=== PATIENT | female | born 1985 | race Caucasian/White ===

== ENCOUNTER 2016-10-08 08:11 | Inpatient (IN) | payer OTHER ==
[~2016-10-08] VITALS: Ht 162.6 cm; Wt 90.1 kg
[~2016-10-08 08:11] MED LIST: DOXY100T2 PO; HYDR25CA PO; INSLIS SUBQ; INSU100V7 SUBQ; LOV100 SUBQ; OXYC5TAB72 PO; RANI150C4 PO; WARF5TAB PO
[2016-10-08 08:23] VITALS: BP 155/94; PULSE 115; RESP 22
--- NOTE | 2016-10-08 09:01 | ED.REPORT ---
HPI-Rash / Abscess Date of Service Oct 08, 2016 ED Provider: Dr. Tomas Pt is a 30 y/o female w/ a hx of prior IV drug abuse, recurrent MRSA abscesses, T1DM, endocarditis, PE, presenting to the ED c/o multiple sites of abscesses onset 1 week ago. She has a hx of septic MRSA and believes that her symptoms today are caused by MRSA. She was diagnosed with cellulitis of the face 1 week ago at Urgent Care and was placed on Clindamycin which has provided some relief. She now reports right sided facial pressure and pain along with bilateral upper arm pain secondary to abscesses. Her left upper arm abscess bursted while she was in triage today.She c/o associated fever, headache, myalgias. She denies nausea, vomiting, cough, CP, abdominal pain. She has been in recovery from IV drug abuse for 2 months. She is on Suboxone. Her recent blood glucose readings have been between 200-300 because she was out of her Humalog. Her sugars stay around 180 when she is on her proper medications. Of note, she is allergic to Penicillins, Sulfa, and Vancomycin. Nursing Notes Stated Complaint: POSS BODY INFECTIONS Chief Complaint: Skin Rash/Abscess Nursing Notes Reviewed: Yes Allergies: Coded Allergies: Penicillins (Verified Allergy, Severe, HIVES, 10/08/16) Sulfa (Sulfonamide Antibiotics) (Verified Allergy, Severe, Hives, 10/08/16) vancomycin (Verified Allergy, Severe, Red man's syndrome, 10/08/16) Scheduled Buprenorphine HCl/Naloxone HCl (Suboxone 8 mg-2 mg Sl Film) 1 Each Film 1 EACH SL BID Insulin Glargine (Lantus U100 Insulin Vial) 100 Unit/Ml Vial 30 UNIT SUBQ HS Insulin Human Lispro (HumaLOG U100 Insulin Vial) 100 Unit/Ml Unit 0 SUBQ TID- INSULIN Check blood sugars before meals and at bedtime. Use correction factor only before meals. Blood Sugar Lispro Correction: <151, 0 units; 151-175, 1 unit; 176-200, 2 units; 201-225, 3 units; 226-250, 4 units; 251-275, 5 units; 276-300 , 6 units; 301-325, 7 units; 326-350, 8 units; 351-375, 9 units; 376-400, 10 units; >400, 12 units. Linezolid (Zyvox) 600 Mg Tablet 600 MG PO BID Metronidazole (Flagyl) 500 Mg Tablet 500 MG PO Q8 diphenhydrAMINE HCl (Benadryl) 25 Mg Capsule 25 MG PO Q8H Scheduled PRN Hydroxyzine Pamoate (HydrOXYzine Pamoate) 50 Mg Capsule 50 MG PO QID PRN PRN For Anxiety Ranitidine (Ranitidine) 150 Mg Capsule 150 MG PO BID PRN PRN For Indigestion General Time Seen by MD: 09:01 Chief Complaint Abscess Hx Obtained From: Patient Arrived By: Walk-in Onset Occurred: 1 week ago Symptom Duration: Since onset Location: : Arm: Generalized: Head/face Quality: Painful Severity: Current: Moderate Severity: Maximum: Moderate Related History: Reports: MRSA Recent Healthcare: Previous diagnosis, Prior workup Similar Sx Previous: Yes Past Medical History Past Medical History Type one diabetic Hepatitis C Bipolar Endocarditis Bilateral PEs MRSA Reports: Asthma, Diabetes mellitus Past Surgical History Knee Chest tube Abscess drainage Left arm Left hip Smoking History Former Smoker Social History Alcohol Use: Denies alcohol use Drug Use: In recovery, IV drugs, THC Other Social History: Local resident Ambulatory Status Independent Review of Systems Constitutional: Reports: Fever, Denies: Chills Eyes: Denies: Discharge bilateral Ears / Nose / Throat: Denies: Earache bilateral, Nasal congestion Respiratory: Denies: Non-productive cough, Shortness of breath Cardiovascular: Denies: Chest pain GI: Denies: Abdominal pain, Nausea, Vomiting Musculoskeletal: Reports: Extremity pain Skin: Reports Rash, Reports Swelling Allergy / Immune: Denies: Allergic reaction Complete sys rev & neg: except as marked. Female: Denies: Dysuria, Flank pain Neurologic: Reports: Headache, Denies: Confusion, Numbness, Weakness Physical Exam Initial Vital Signs Initial VS: Reviewed, Vital signs abnormal Neck: Supple, Non-tender, Full range of motion Respiratory: Breath sounds normal, Clear to auscultation, No respiratory distress Abdomen / GI: Soft, Non-tender Neurologic: Alert, Oriented, Nonfocal Psychiatric: Mood/affect normal, Behavior normal, Normal thought content General/Constitutional: Awake, Alert, No acute distress, Cooperative, Not toxic appearing Skin: Atraumatic, Color NL, Warm Color / Condition: Positive: Diaphoresis present (mild) Head / Eyes: Atraumatic, Normocephalic, PERRL Face flushed Inferior nasal swelling Lateral right eyebrow ulceration which appears to be healing ENT: Atraumatic, Airway patent, Mucous membranes moist, Pharynx NL, No peritonsillar abscess Cardiovascular: Regular rhythm, Cap refill not delayed, Peripheral circulation NL Heart Rate / Rhythm: Positive: Tachycardia Heart Sounds / Murmur: Positive: Systolic murmur present.. (III/, left lower sternal border) Upper Extremity / MS: Atraumatic, Full range of motion, No deformity, Neurologic intact, Vascular intact, No compartment syndrome, No clubbing/ cyanosis LUE: Draining wound over the shoulder with purulent green discharge that was cultured RUE: 2 areas of erythema and fluctuance over the shoulder Interpretation & Diagnostics Lab Results Interpretation Test 10/08/16 10:10 Erythrocyte Sedimentation Rate 48mm/hr (0-32) Hematology Comments Wbc Hemoglobin A1c 9.5% (4.8-5.6) Lactic Acid Level 1.4mmol/L (0.4-2.0) Magnesium Level 1.6mg/dL (1.6-2.6) Troponin T < 0.010ug/L (0.0-0.011) C-Reactive Protein 3.5mg/dL (0.0-0.5) Lab Results Interpretation: Urine tox: Positive for marijuana, opiates, and oxycodone Pulse Oximetry Interpretation Pulse Oximetry: Pulse Ox normal, On room air ECG Interpretation ECG Interpretation: Sinus rhythm rate 97 Probable LAE Time: 10:28 Interpreted by: ED physician Normal ECG Interpretation: No acute ischemic changes, No change from prior ECGs (07/30/15) Rhythm Strip Interpretation : Time: 10:28 Rhythm Strip Interpretation: Interpreted by me, Rate (97), Normal sinus rhythm CBC Interpretation CBC normal except, WBC elevated BMP / CMP Interpretation BMP/CMP normal except, Na low, ALT (SGPT) elevated, AST (SGOT) elevated Acute Phase Reactant Interp CRP elevated, ESR elevated X-Ray Chest Interpretation Chest Xray Interpretation: IMPRESSION: Normal for age, source of the current cough is not seen. Dictated by: Buster Hull M.D. on 10/08/2016 at 11:25 Approved by: Buster Hull M.D. on 10/08/2016 at 11:25 View: Portable, AP & lat Interpretation / Wet Read by: Interpret - Radiologist Procedures Incision & Drainage Abscess I & D Abscess: 2 abscesses total Time: 09:30 Procedure Performed by: ED physician Consent / Setup / Site Prep: Consent from patient, Time-out performed, Hand hygiene observed, Stand sterile technique, Sterile drapes applied Location of Abscess: Lower abscess left shoulder and abscess right shoulder Skin Preparation Agent: Hibiclens - Chlorhexidine Local Anesthesia: Lidocaine w epi 1%, Other (5 cc on left, 10 cc on right) Incised Abscess with Scalpel: #11 Pus Drained: Large, Purulent discharge Post-Procedure / Complications: Packing placed, Drain placed, Culture obtained, Gram stain ordered, Dressing applied, No complications, Condition improved, Tolerated procedure well, Patient stable Re-Eval/Medical Decision Med Decision/Clinical Course 30-year-old female with a history of IV drug use, type I diabetes, and previous endocarditis presenting with bilateral shoulder abscesses and a sore on her face. She was seen last week in the urgent care and started on clindamycin for the skin infection on her face but this is not improved and she has subsequently developed bilateral shoulder abscesses. The left abscesses burst while in the triage area of the emergency room and after anesthesia of this area with local anesthetic I explored the wound further and loculations were broken up and packing was inserted. She had a very large abscess on the right shoulder which was incised and drained here in the emergency department also. She does have sepsis and with her heart murmur there is certainly a possibility for endocarditis. There is an allergy to vancomycin listed in her chart, however when asked about this she states that she just had some facial flushing because it was administered to quickly and states that she believes it was called red man syndrome. I discussed with our pharmacist this "allergy" and we elected to premedicate her with Benadryl and then used the vancomycin as it seems to be the best choice for her MRSA. Her MRSA in the past has been resistant to clindamycin. Patient admitted for further workup and treatment. Discussed with Dr. Park Source of Hx: Old records, Family Re-Evaluation/Progress : Time of Eval: 11:03 Patient Status: Condition improved, Pain improved Re-Evaluation/Progress Note: Pt rechecked. She is feeling improved. Informed pt of need for admission due to sepsis. Pt understands and agrees with plan for admission. All questions addressed. Consultation #1: Call Returned at: 10:13 Naval Inspector: Agrees with eval, Agrees with plan Note: Pharmacist recommends Vancomycin to cover abscess and possible endocarditits. Consultation #2: Consulted With: Hospitalist Call Returned at: 12:00 Naval Inspector: Will see patient, Agrees with eval, Agrees with plan, Accepts admit Counseled Regarding: Diagnosis, Lab results, Need for admission Discharge & Departure Impression: Primary Impression: Sepsis Sepsis type: sepsis due to unspecified organism Qualified Code: A41.9 - Sepsis, unspecified organism Additional Impressions: Cellulitis Site of cellulitis: extremity Site of cellulitis of extremity: upper extremity Laterality: unspecified laterality Qualified Code: L03.119 - Cellulitis of unspecified part of limb Abscess of left shoulder Abscess of right shoulder History of intravenous drug use in remission History of endocarditis Heart murmur, systolic Hyponatremia Disposition: ADMITTED TO HOSPITAL Discharge Condition All VS Reviewed: Yes Condition: Stable Referrals: Chiara Powell (PCP) Sandi Attestation Portions of this note were transcribed by Hal Orozco. I, Dr. Braswell personally performed the history, physical exam and medical decision-making; I reviewed and confirmed the accuracy of the information in the transcribed note. Signed by Sandi Lopez, 10/08/16 - 0731 copies to: Chiara Powell Gary R DO Oct 08, 2016 09:01 HAL OROZCO Oct 08, 2016 09:18 Mean Corpuscular Hemoglobin 28.1pg (27.0-35.0) Mean Corpuscular Hemoglobin Concent 34.5% (32.0-37.0) Red Cell Distribution Width 12.9% (12.3-15.4) Platelet Count 252bil/L (150-400) Neutrophils (%) (Auto) 56.3% (40-74) Lymphocytes (%) (Auto) 27.5% (14-46) Monocytes (%) (Auto) 14.4% (4-12) Eosinophils (%) (Auto) 0% (0-5) Basophils (%) (Auto) 0.2% (0-3) Erythrocyte Sedimentation Rate 48mm/hr (0-32) Hematology Comments Wbc Sodium Level 129mEq/L (134-144) Potassium Level 4.2mEq/L (3.5-5.2) Chloride Level 92mEq/L (97-108) Carbon Dioxide Level 26mmol/L (18-29) Blood Urea Nitrogen 10mg/dL (6-20) Creatinine 0.53mg/dL (0.57-1.00) Estimat Glomerular Filtration Rate 193mL/min (>59) Glucose Level 82mg/dL (60-99) Lactic Acid Level 1.4mmol/L (0.4-2.0) Calcium Level 8.9mg/dL (8.5-10.1) Magnesium Level 1.6mg/dL (1.6-2.6) Total Bilirubin 0.3mg/dL (0.0-1.2) Aspartate Amino Transf (AST/SGOT) 114U/L (0-50) Alanine Aminotransferase (ALT/SGPT) 94U/L (0-32) Alkaline Phosphatase 79U/L (25-150) Troponin T < 0.010ug/L (0.0-0.011) C-Reactive Protein 3.5mg/dL (0.0-0.5) Total Protein 8.0g/dL (6.4-8.4) Albumin 3.5g/dL (3.4-5.0) Lab Results Interpretation: Urine tox: Positive for marijuana, opiates, and oxycodone Pulse Oximetry Interpretation Pulse Oximetry: Pulse Ox normal, On room air ECG Interpretation ECG Interpretation: Sinus rhythm rate 97 Probable LAE Time: 10:28 Interpreted by: ED physician Normal ECG Interpretation: No acute ischemic changes, No change from prior ECGs (07/30/15) Rhythm Strip Interpretation : Time: 10:28 Rhythm Strip Interpretation: Interpreted by me, Rate (97), Normal sinus rhythm CBC Interpretation CBC normal except, WBC elevated BMP / CMP Interpretation BMP/CMP normal except, Na low, ALT (SGPT) elevated, AST (SGOT) elevated Acute Phase Reactant Interp CRP elevated, ESR elevated X-Ray Chest Interpretation Chest Xray Interpretation: IMPRESSION: Normal for age, source of the current cough is not seen. Dictated by: Buster Hull M.D. on 10/08/2016 at 11:25 Approved by: Buster Hull M.D. on 10/08/2016 at 11:25 View: Portable, AP & lat Interpretation / Wet Read by: Interpret - Radiologist Procedures Incision & Drainage Abscess I & D Abscess: 2 abscesses total Time: 09:30 Procedure Performed by: ED physician Consent / Setup / Site Prep: Consent from patient, Time-out performed, Hand hygiene observed, Stand sterile technique, Sterile drapes applied Location of Abscess: Lower abscess left shoulder and abscess right shoulder Skin Preparation Agent: Hibiclens - Chlorhexidine Local Anesthesia: Lidocaine w epi 1%, Other (5 cc on left, 10 cc on right) Incised Abscess with Scalpel: #11 Pus Drained: Large, Purulent discharge Post-Procedure / Complications: Packing placed, Drain placed, Culture obtained, Gram stain ordered, Dressing applied, No complications, Condition improved, Tolerated procedure well, Patient stable Re-Eval/Medical Decision Source of Hx: Old records, Family Re-Evaluation/Progress : Time of Eval: 11:03 Patient Status: Condition improved, Pain improved Re-Evaluation/Progress Note: Pt rechecked. She is feeling improved. Informed pt of need for admission due to sepsis. Pt understands and agrees with plan for admission. All questions addressed. Consultation #1: Call Returned at: 10:13 Naval Inspector: Agrees with eval, Agrees with plan Note: Pharmacist recommends Vancomycin to cover abscess and possible endocarditits. Consultation #2: Consulted With: Hospitalist Call Returned at: 12:00 Naval Inspector: Will see patient, Agrees with eval, Agrees with plan, Accepts admit Counseled Regarding: Diagnosis, Lab results, Need for admission Discharge & Departure Impression: Primary Impression: Sepsis Sepsis type: sepsis due to unspecified organism Qualified Code: A41.9 - Sepsis, unspecified organism Additional Impressions: Cellulitis Site of cellulitis: extremity Site of cellulitis of extremity: upper extremity Laterality: unspecified laterality Qualified Code: L03.119 - Cellulitis of unspecified part of limb Abscess of left shoulder Abscess of right shoulder History of intravenous drug use in remission History of endocarditis Heart murmur, systolic Hyponatremia Disposition: ADMITTED TO HOSPITAL Discharge Condition All VS Reviewed: Yes Condition: Stable Referrals: Chiara Powell (PCP) Sandi Attestation Portions of this note were transcribed by Hal Orozco. I, Dr. Braswell personally performed the history, physical exam and medical decision-making; I reviewed and confirmed the accuracy of the information in the transcribed note. Signed by Sandi Lopez, 10/08/16 - 21 copies to: Chiara Powell Gary R DO Oct 08, 2016 09:01 HAL OROZCO Oct 08, 2016 09:18
[2016-10-08] MEDS ORDERED: Vancomycin Dose per Pharmacist XX ONE (09:15)
[2016-10-08] MEDS ORDERED: Sodium Chloride LOK Flush 10 mL Syringe IVFLUSH PRN (09:15)
[2016-10-08] MEDS ORDERED: 0.9% Sodium Chloride 1,000 ML IV ONE (09:15)
[2016-10-08] MEDS ORDERED: oxyCODONE-Acetamin 10-325 mg Tablet PO ONE (09:15)
[2016-10-08] MEDS ORDERED: Vancomycin Inj 1,750 MG in Dextrose 5% 500 ML IV ONE (10:10)
--- NOTE | 2016-10-08 10:20 | PCM.CONPHA ---
Objective Vital Signs Date Time Temp Pulse Resp B/P Pulse Ox O2 Delivery O2 Flow Rate FiO2 10/08/16 08:23 37.4 115 22 155/94 Weight (Kilograms): 84.09 Height (Feet): 5 Height (Inches): 4 Assessment/Plan Assessment/Plan Patient is a 30 y.o.female receiving vancomycin for cellulites and endocarditis . Based on patient parameters vancomycin will receive a one-time dose of 1750 mg MD. is aware of previous starr syndrome, pt will be premedicated with diphenhydramine and monitored for adverse reaction. Please reconsult pharmacy if the patient is admitted and you wish for vancomycin therapy to continue. Thank you for the consult in the care of this patient. RTM PharmD Akshat Zhou Oct 08, 2016 10:20
[2016-10-08 10:23] LABS: BASOPHILS % (AUTO) 0.2 % (0-3); EOSINOPHILS % (AUTO) 0 % (0-5); MONOCYTES % (AUTO) 14.4 % (4-12); Mean Corpuscular Hemoglobin 28.1 pg (27.0-35.0); Mean Corpuscular Volume 81.4 fL (81-100); NEUTROPHILS % (AUTO) 56.3 % (40-74); Platelet Count 252 bil/L (150-400)
[2016-10-08 10:44] LABS: ERYTHROCYTE SEDIMENTATION RATE 48 mm/hr (0-32)
[2016-10-08 10:54] LABS: Magnesium 1.6 mg/dL (1.6-2.6)
[2016-10-08 10:56] LABS: TROPONIN T < 0.010 ug/L (0.0-0.011)
[2016-10-08 11:09] VITALS: BP 128/61; PULSE 88; RESP 18; O2SAT 99
[2016-10-08 11:23] LABS: APPEARANCE,URINE CLEAR (CLEAR,HAZY); COLOR,URINE DARK YELLOW (YELLOW); OCCULT BLOOD,URINE NEGATIVE (NEGATIVE); UROBILINOGEN,URINE NORMAL (NORMAL)
--- NOTE | 2016-10-08 11:27 | DRSVH ---
PROCEDURE: X-RAY CHEST, TWO VIEWS ([id number]) INDICATIONS: cough, fever TECHNIQUE: 2 views of the chest were acquired. COMPARISON: None. FINDINGS: Surgical changes and devices: None. Lungs and pleura: No pleural effusions or pneumothorax. Lungs are clear. Mediastinum: Mediastinal contours are normal. Heart size is normal. Bones and chest wall: No suspicious bony abnormalities. Soft tissues appear unremarkable. IMPRESSION: Normal for age, source of the current cough is not seen. Dictated by: Buster Hull M.D. on 10/08/2016 at 11:25 Approved by: Buster Hull M.D. on 10/08/2016 at 11:25
[2016-10-08 12:09] VITALS: BP 127/69; PULSE 92; RESP 14; O2SAT 96
[2016-10-08] MEDS: Sodium Chloride LOK Flush 10 mL Syringe IVFLUSH PRN (12:28)
[2016-10-08] MEDS ORDERED: Alum-Mag Hydrox-Simeth 30 mL Suspension PO PRN (13:20)
[2016-10-08] MEDS ORDERED: Ondansetron 2 mg/mL 2 mL Inj IVPUSH PRN (13:20)
[2016-10-08 13:49] VITALS: BP 135/83; PULSE 99; RESP 19; O2SAT 99
--- NOTE | 2016-10-08 13:51 | NUR ---
Admit Pt arrived to [facility] rm 1016 at 1350 from the ED. Pt arrived via gurney and was able to ambulate to the hospital bed. Rec'd report from Gregory Shankar RN. Pt states that pain is tolerable and that she is cold. Behavior contract signed in the ED. IV itact. Dressings w/ minimal drainage. Oriented to room and call light completed by ELISA
[2016-10-08] MEDS ORDERED: Polyethylene Glycol (PEG) 17 Gm Powder PO PRN (14:10)
[2016-10-08] MEDS ORDERED: BUPR1FIL3 SL (14:19)
[2016-10-08] MEDS ORDERED: Influenza (Adult) Vaccine 0.5 mL Syringe IM ONE (14:55)
[2016-10-08] MEDS ORDERED: Glucose 40% Oral Gel 15 Gm Tube PO PRN (15:35)
[2016-10-08] MEDS ORDERED: hydrOXYzine Pamoate 25 mg Capsule PO SCH (16:30)
[2016-10-08] MEDS ORDERED: Insulin LISPRO Medium-Dose Scale SUBQ PRN (16:30)
[2016-10-08 17:57] VITALS: BP 137/89; PULSE 76; RESP 20; O2SAT 100
--- NOTE | 2016-10-08 18:15 | NUR ---
Belongings Locked up by security in pt's room. Pt verbalized consent.
--- NOTE | 2016-10-08 18:15 | NUR ---
Right eye/pain MD aware of red eye irritation. Hot pack provided per pt request. To monitor. Md has ordered suboxone to start tomorrow am. Pt aware. Has not had dose today but was given narcotics in ED. To monitor.
--- NOTE | 2016-10-08 18:41 | PCM.HPMED ---
Subjective Date of Service Oct 08, 2016 Primary Provider: Admitting Physician: Nate Park MD Primary Care Physician: Chiara Powell Attending Physician: Nate Park MD Admit Status: From the Emergency Department Chief Complaint: Bilateral Shoulder Cellulitis History of Present Illness: This is a 30-year-old heroin using female who has a history of multiple MRSA skin abscesses, but claims to be in remission from heroin use for the last 2 months, while on Suboxone. She recently developed a rash likely to be staph on the right eyebrow. She was treated with doxycycline. This produced some vomiting. And so she was changed to clindamycin at an urgent care visit several days ago. She then developed painful and red swelling on the lateral aspects of both shoulders. This is in a location where she has scars from previous skin popping infections. In the emergency department she has had these areas opened up and drained copious amounts of greenish pus. She has had endocarditis once before. In the emergency department a new heart murmur was noted which I do not hear on my exam. The right eye rash/infection appears to be resolving. She has had no fevers, chills, sweats or infections in any other areas. She has now been admitted for IV vancomycin therapy. Cultures were done in the emergency department. Review of Systems: Positive for skin infection and pain, recent heroin use remission, right eyebrow infection. Negative for fevers, chills, sweats, coughing, chest pain, shortness breath, dull pain, nausea, vomiting, diarrhea, bleeding, rash other than described above , seizures, joint pain, depression, new allergies, sore throat. Allergies Coded Allergies: Penicillins (Verified Allergy, Severe, HIVES, 10/08/16) vancomycin (Verified Allergy, Severe, RASH FULL BODY, 10/08/16) Sulfa (Sulfonamide Antibiotics) (Verified Allergy, Unknown, 10/08/16) Home Medications Doxycycline Hyclate (Doxycycline Hyclate) 100 Mg Tablet 100 MG PO BID No longer on Enoxaparin (Lovenox) 100 Mg/Ml Inj 100 MG SUBQ Q12 Hydroxyzine Pamoate (Vistaril) 25 Mg Capsule 25 MG PO QID Insulin Glargine (Lantus U100 Insulin Vial) 100 Unit/Ml Vial 30 UNIT SUBQ AM Insulin Human Lispro (HumaLOG U100 Insulin Vial) 100 Unit/Ml Unit 0 SUBQ TID- INSULIN Check blood sugars before meals and at bedtime. Use correction factor only before meals. Blood Sugar Lispro Correction: <151, 0 units; 151-175, 1 unit; 176-200, 2 units; 201-225, 3 units; 226-250, 4 units; 251-275, 5 units; 276-300 , 6 units; 301-325, 7 units; 326-350, 8 units; 351-375, 9 units; 376-400, 10 units; >400, 12 units. No longer on Warfarin Sodium (Coumadin) 5 Mg Tablet 5 MG PO DAILY@17 Suboxone 8 mg twice a day Scheduled PRN Ranitidine (Ranitidine) 150 Mg Capsule 150 MG PO BID PRN PRN For Indigestion oxyCODONE (oxyCODONE) 5 Mg Tablet 5 MG PO Q4H PRN PRN For Pain PMH PAST MEDICAL HISTORY: 1. Substance abuse, mostly heroin injection use and some marijuana. Recently on Suboxone. 2. Hepatitis C. 3. Type 1 diabetes mellitus, diagnosed at age 19. 4. Bipolar disorder. 5. Endocarditis 2008, MRSA, with septic pulmonary emboli, and residual right eye blindness, also requiring chest tube at that time. 6. Asthma. 7. Right knee septic arthritis. 8. Bilateral pulmonary embolism ALLERGIES: 1. SULFA, gets hives. 2. PENICILLIN, gets hives. 3. VANCOMYCIN, made her turn red. Surgical History PAST SURGICAL HISTORY: 1. Right knee arthroscopy for septic arthritis. 2. section. 3. I and D, right deltoid abscess. 4. I and D, right hip abscess. Family History FAMILY HISTORY: Significant for diabetes. Social History Hx Alcohol Use: Yes Alcoholic Drinks Per Day: Occasional 1x/4 beers Hx Substance Use: Yes (couple months ago for heroin, morphine for pain a few days ago. ) Hx Tobacco Use: Yes (half pack a day) Smoking Status: Former Smoker Living Arrangement: with Family Additional Information SOCIAL HISTORY: The patient smokes. She does not use alcohol. Her substance use is as outlined above. She lives alone, is currently from her and is unemployed. Her nurse practitioner is Dr. Chiara Powell Her Suboxone prescriber is Dr. 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 Pupils are equally round and reactive to light and accommodation. Extraocular muscles are intact. Sclerae are pink and nonicteric. There is an area of redness/abrasion in the middle of the right upper eyebrow. Throat looks normal. No lymph nodes are felt head, neck, supraclavicular area. There is no thyromegaly. No carotid bruits are heard. JVD is less than 6 cm. Heart is regular rate and rhythm. I do not hear the murmur that is heard recently in the emergency department. Lungs are clear to auscultation bilaterally. Abdomen is obese, bowel sounds positive, nontender, no organomegaly, soft. Breast, pelvic, rectal rectal exams are deferred to her primary care nurse practitioner. Neuro exam is notable for lack of tremor. Cranial nerves II through XII tested intact. Motor function is 5 out of 5 throughout. Skin notable for gauze dressing soaked with pinkish drainage on both shoulders. Surrounding redness is quite limited. There is no other rash or abscess/ cellulitis seen. Lab and Diagnostics Result Diagram: 10/08/16 1010 10/08/16 1010 X-Rays, CTs and MRIs X-RAY CHEST, TWO VIEWS ([id number]) INDICATIONS: cough, fever TECHNIQUE: 2 views of the chest were acquired. COMPARISON: None. FINDINGS: Surgical changes and devices: None. Lungs and pleura: No pleural effusions or pneumothorax. Lungs are clear. Mediastinum: Mediastinal contours are normal. Heart size is normal. Bones and chest wall: No suspicious bony abnormalities. Soft tissues appear unremarkable. IMPRESSION: Normal for age, source of the current cough is not seen. Dictated by: Buster Hull M.D. on 10/08/2016 at 11:25 Assessment & Plan #1 bilateral shoulder abscess. -Continue vancomycin and dressing changes. -Wound cultures and blood cultures are pending. -Consider surgical consultation if abscesses do not improve as expected. #2 type I diabetes mellitus -Continue Lantus and sliding scale insulin. #3 history of heroin abuse and skin popping -Continue Suboxone. #4 history of bilateral pulmonary embolism -Continue prophylactic enoxaparin. -No longer on Coumadin. Teto Park M.D. VTE Prophylaxis: Sub-Q Enoxaparin VTE Mechanical Devices: Anti-Embolic stockings Resuscitation Status: CPR: Attempt Resuscitation Nate Park MD Oct 08, 2016 14:10
[2016-10-08 19:40] VITALS: BP 144/83; PULSE 84; RESP 18; O2SAT 98
[2016-10-08] MEDS ORDERED: HYDR50CA3 PO (19:46)
--- NOTE | 2016-10-08 20:17 | PCM.PHAPRO ---
Progress Date of Service: Oct 08, 2016 Bilateral Shoulder Cellulitis Vancomycin Management per Pharmacy: Indication: Cellulitis Goal Vanco trough: 10-15 mg/dL Age: 30 yo Weight: 90.1 kg Labs: WBC: 12.7 SrCr: 0.53 Est CrCl: ~120 mL/min Vitals: HR < 90 BPM, BP: WNL, no fevers Wound culture: Gram pos cocci (ID and susceptibilities pending), hx of MRSA ( 2008) Additional Antibiotics: Cefazolin 2 GM IV Q8h (for MSSA covg pending ID and susceptibilities) Recommendation: Vancomycin 1750 mg IV x 1 (received earlier in ED) Vancomycin 1000 mg IV Q8h for maintenance dose (received this dose in the past with vanco trough ~17 mg/dL) Draw vancomycin trough on 10/09 @ 2029 prior to 4th maintenance dose Pharmacy to continue to adjust as needed. Thank You, Meghann Stewart, Pharm D. Meghann Stewart Oct 08, 2016 20:17
--- NOTE | 2016-10-08 20:38 | NUR ---
Concern about med/ MD and pharmacy aware This RN was concerned about order received to give vancomycin, as it was listed underneath allergies. This RN talked with pt. and pt. 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 Pharmacy was notified, and stated "I am aware, and yes, red man's syndrome is usually caused from infusing too fast. This order is to infuse it slower than we usually do, and please give tylenol and benadryl before infusing". MD then was paged, and made aware. MD agreed to go ahead and give medication, and stated "red man's syndrome is from infusing too fast". MD also agreed with giving benadryl and tylenol beforehand. Will continue to monitor pt.
[2016-10-08] MEDS: hydrOXYzine Pamoate 25 mg Capsule PO SCH (21:42)
[2016-10-08] MEDS: Vancomycin 1 Gm/200 mL D5W Premix IV SCH (21:51)
[2016-10-08] MEDS ORDERED: INSU100V7 SUBQ (22:26)
[2016-10-08] MEDS: Insulin LISPRO Medium-Dose Scale SUBQ SCH (22:30)
[2016-10-08] MEDS: Insulin GLARgine 100 Unit/mL Syringe SUBQ SCH (23:32)
[2016-10-09] MEDS: CeFAZolin 2 Gm/50 mL D5W IV Premix IV SCH ×3 (01:10→17:19)
--- NOTE | 2016-10-09 04:51 | NUR ---
Activity Pt. has not complained about pain during shift. Pt. uses call light appropriately, and is able to get around room safely and independently. Will continue to monitor.
[2016-10-09] MEDS: hydrOXYzine Pamoate 25 mg Capsule PO SCH ×4 (05:39→21:53)
[2016-10-09] MEDS: Vancomycin 1 Gm/200 mL D5W Premix IV SCH ×3 (05:50→21:44)
[2016-10-09 05:58] VITALS: BP 100/69; PULSE 64; RESP 18; O2SAT 98
[2016-10-09 06:33] LABS: EOSINOPHILS % (AUTO) 0.3 % (0-5); MONOCYTES % (AUTO) 15.9 % (4-12); Mean Corpuscular Hemoglobin 28.3 pg (27.0-35.0); Mean Corpuscular Volume 80.4 fL (81-100); NEUTROPHILS % (AUTO) 55.9 % (40-74); Platelet Count 224 bil/L (150-400)
[2016-10-09] MEDS ORDERED: Insulin GLARgine 100 Unit/mL Syringe SUBQ SCH (07:30)
--- NOTE | 2016-10-09 07:34 | PCM.PNMED ---
Subjective Date of Service Oct 09, 2016 Subjective no acute events overnight, denies cp/sob - pain moderate at abscesses - no micro finalized - gram pos cocci Exam Vital Signs Vital Sign - Last Date Time Temp Pulse Resp B/P Pulse Ox O2 Delivery O2 Flow Rate FiO2 10/09/16 05:58 36.8 64 18 100/69 98 Room Air Intake and Output 10/08/16 10/08/16 10/09/16 Cumulative From/Thru 15:00 23:00 07:00 10/08/16 08:23 - 10/09/16 06:28 Intake Total 1000 ml 800 ml 1024 ml 2824 ml Output Total 1100 ml 1100 ml 2200 ml Balance 1000 ml -300 ml -76 ml 624 ml Intake Oral 800 ml 874 ml 1674 ml IV Total 1000 ml 150 ml 1150 ml Output Urine Total 1100 ml 1100 ml 2200 ml # Bowel Movements 0 0 Exam Alert and oriented 3, no apparent distress. Pupils are equally round and reactive to light and accommodation. Extraocular muscles are intact. Sclerae are pink and nonicteric. No lymph nodes are felt head, neck, supraclavicular area. There is no thyromegaly. No carotid bruits are heard. JVD is less than 6 cm. Heart is regular rate and rhythm. I do not hear the murmur Lungs are clear to auscultation bilaterally. Abdomen is obese, bowel sounds positive, nontender, no organomegaly, soft. Breast, pelvic, rectal rectal exams are deferred to her primary care nurse practitioner. Neuro exam is notable for lack of tremor. Cranial nerves II through XII tested intact. Motor function is 5 out of 5 throughout. Skin notable for gauze dressing soaked with pinkish drainage on both shoulders. Surrounding redness is quite limited. There is no other rash or abscess/ cellulitis seen. IVs and Medications Medications Reviewed: Medications were reviewed in detail Lab and Diagnostics Result Diagram: 10/09/16 0510 10/08/16 1010 X-Rays, CTs and MRIs X-RAY CHEST, TWO VIEWS ([id number]) INDICATIONS: cough, fever TECHNIQUE: 2 views of the chest were acquired. COMPARISON: None. FINDINGS: Surgical changes and devices: None. Lungs and pleura: No pleural effusions or pneumothorax. Lungs are clear. Mediastinum: Mediastinal contours are normal. Heart size is normal. Bones and chest wall: No suspicious bony abnormalities. Soft tissues appear unremarkable. IMPRESSION: Normal for age, source of the current cough is not seen. Dictated by: Buster Hull M.D. on 10/08/2016 at 11:25 Assessment & Plan #1 bilateral shoulder abscess. -Continue vancomycin and dressing changes. -Wound cultures and blood cultures are pending. -Consider surgical consultation if abscesses do not improve as expected. #2 type I diabetes mellitus -Continue Lantus and sliding scale insulin. #3 history of heroin abuse and skin popping -Continue Suboxone. #4 history of bilateral pulmonary embolism -Continue prophylactic enoxaparin. -No longer on Coumadin. Teto Park M.D. VTE Prophylaxis: Sub-Q Enoxaparin VTE Mechanical Devices: Anti-Embolic stockings Resuscitation Status: CPR: Attempt Resuscitation William Chiu DO Oct 09, 2016 07:29
[2016-10-09] MEDS: Insulin LISPRO Medium-Dose Scale SUBQ SCH ×4 (08:11→21:56)
[2016-10-09] MEDS: Buprenorphine 2 mg SL Tablet SL SCH ×2 (08:11→21:44)
[2016-10-09 09:49] VITALS: BP 105/57; PULSE 80; RESP 17; O2SAT 95
--- NOTE | 2016-10-09 11:01 | NUR ---
Rash Pt has developed a red rash on arm, legs and chest. Denies SOB. Pt is diaphoretic from not having Suboxone for 2 days. Suboxone dose given. MD aware of rash, Benadryl was given with dose of vancomycin. Will continue to monitor.
[2016-10-09] MEDS ORDERED: diphenhydrAMINE 50 mg Capsule PO ONE (13:35)
[2016-10-09] MEDS ORDERED: 0.9% Sodium Chloride 100 ML ONE ×2 (13:52→19:50)
[2016-10-09 14:35] VITALS: BP 104/70; PULSE 75; RESP 18; O2SAT 97
--- NOTE | 2016-10-09 16:18 | NUR ---
CD assessment: SW met with patient at bedside to discuss discharge plan. Patient is a 30 year old female admitted on 10/08/16 for sepsis, abscess and cellulitis. Patient currently on Vanco abx at this time. Patient has current heroin use. SW met with patient at bedside to discuss heroin dependency. Hx of substance use: SW inquired about age of first use. Patient states being unable to recall age of use but states family are active alcoholics and substance abuse users. Patient states family abuse made it easy to obtain. Hx of treatment programs: Patient states being currently active with [facility] treatment programs. Patient states she currently attends group and individual counseling and prefers group counseling therapy [facility]. Hx of w/d symptoms: Patient denies any withdrawal symptoms at this time. Hx of sobriety: Patient states longest period of sobriety was 6 months. Patient states last use was in July where she relapsed as a result to recent assisted time. Patient states having a recent DOC violation with failure to appear in court Consequences: Patient states being homeless at this time and states currently living in her car. Patient underwent assisted time as a result to use. Patient states being unable to live with grandparents at this time. Motivation for tx: Patient denied supoprt program information at this time and aware of treatment programs to assist with substance use. Patient states she to continue treatment at [facility]. [facility]. SW to follow criteria for admittance and to complete all necessary referral. SW to follow. PLAN: Patient is homeless and living in car. SW to follow for possible [facility] options. SW to follow. Vonnie PURDY
--- NOTE | 2016-10-09 17:33 | DRSVH ---
[facility] [address] [place] [address] Echocardiogram Report Name: TANNER SYED JStudy Date: 2016 Height: 64 in Hospital Exam Location: [facility] Weight: 199 lb Gender: Female BSA: 2.0 m2 : 1985 Age: 30 yrs BP: 104/70 mm Hg Reason For Study: ENDOCARDITIS Ordering Physician: Dr. Teto Park Performed By: Zaira Roque Referring Physician: Dr. Arcelia Powell Interpretation Summary 1) Normal left ventricular thickness, size, wall motion, diastolic function, and systolic function (EF 60-65%). 2) Normal right ventricular size and function. 3) No valvular vegetations and no valvular pathology noted. 4) No prior Echo available for comparison. If clinical suspicion for endocarditis is present, consider KYLEE. Procedure: A two-dimensional transthoracic echocardiogram with color flow and Doppler was performed. The study quality was technically adequate. Comparison is made with the echocardiogram of . The patient was in normal sinus rhythm during the exam. Left Ventricle: The left ventricle is normal in size, wall thickness, and systolic function without any focal wall motion abnormalities. The ejection fraction is estimated to be 60-65%. Assessment of diastolic parameters indicates normal left ventricular diastolic function and normal filling pressures. Right Ventricle: The right ventricle is normal in size and function. Atria: Both atria are normal in size. There is no Doppler evidence for an atrial septal defect. Mitral Valve: The mitral valve leaflets appear normal. There is no evidence of stenosis, fluttering, or prolapse. There is no vegetation seen on the mitral valve. There is trace mitral regurgitation. Aortic Valve: The aortic valve is trileaflet. The aortic valve opens well. There is no aortic valvular vegetation. There is no aortic valve stenosis. No aortic regurgitation is present. Tricuspid Valve: The tricuspid valve leaflets are thin and pliable. There is no tricuspid valve vegetation. There is mild tricuspid regurgitation. The right ventricular systolic pressure is estimated at 30 mmHg assuming a right atrial pressure of 8 mm Hg. Pulmonic Valve: The pulmonic valve leaflets are thin and pliable; valve motion is normal. There is no vegetation on the pulmonic valve. Great Vessels: The aortic root is normal size. The dimensions of the ascending aorta are normal. The pulmonary artery is normal size. The IVC is of normal diameter and collapses less than 50% with a sniff. This suggests a right atrial pressure of 8 mm Hg. Pericardium/ Pleura There is no pericardial effusion. There is no pleural effusion. MMode/2D Measurements & Calculations LVIDd: 4.9 cm LA dimension: 3.8 cm RA long axis LVOT diam: 1.9 cm LVIDs: 3.0 cm AoV Openin.8 cm FS: 39.2 % LA A2 area: 18.4 cm RA area Ao root diam: 2.6 cm EPSS: 0.29 cm LA A4 area: 19.6 cm Ao Arch Diam IVSd: 0.87 cm LA length (vol) : 16.8 cm (Proximal trans.) LVPWd: 0.96 cm RA vol LA vol: 61.0 ml : 51.3 ml LA vol index RA : 26.3 mm/ RVDd major IVC diam: 2.1 cm : 6.6 cm LV sheets. diameter/BSALV sys. diameter/BSA RVD1 (basal) RVD2 (mid): 3.2 cm (cm/m^2): 2.5 (cm/m^2): 1.5 Doppler Measurements & Calculations Ao V2 max MV E max alireza MV E/A: 1.5 TR max alireza : 172.4 cm/sec : 96.4 cm/sec Med Peak E' Alireza : 236.5 cm/sec Ao max PG MV A max alireza TR max P.4 mmHg : 11.9 mmHg : 64.3 cm/sec E/E' med: 7.6 PA V2 max Ao mean PG MV P1/2t: 56.5 msec Lat Peak E' Alireza : 117.3 cm/sec PA mean P.9 mmHg LVOT Max Alireza E/E' lat: 5.6 PA Accel Time : 95.8 cm/sec Pulm A Revs Dur : 0.07 sec DAKOTA(I,D) : 1.7 cm2 MV A dur: 0.11 sec sev ratio MV dec time MV P1/2t max alireza Ao V2 mean LV V1 max PG : 0.19 sec : 117.6 cm/sec Ao V2 VTI: 33.9 cmLV V1 VTI: 19.9 cm MVA(P1/2t): 3.9 cm2 DAKOTA(V,D): 1.6 cm2 PA V2 mean DAKOTA indexed to BSA E/e' average: 6.6 Pulm A Revs Dur - MV : 82.1 cm/sec (cm^2/m^2): 0.88 A Dur: 0.01 msec Reading Physician:05:33 PM
[2016-10-09 18:22] VITALS: BP 99/63; PULSE 79; RESP 17; O2SAT 97
[2016-10-09] MEDS: diphenhydrAMINE 25 mg Capsule PO SCH (20:04)
[2016-10-09] MEDS ORDERED: Vancomycin Serum Trough XX ONE (20:30)
[2016-10-09 21:00] VITALS: BP 125/72; PULSE 80; RESP 20; O2SAT 98
[2016-10-09] MEDS: Insulin GLARgine 100 Unit/mL Syringe SUBQ SCH (21:53)
[2016-10-10] MEDS: CeFAZolin 2 Gm/50 mL D5W IV Premix IV SCH ×3 (00:34→16:38)
--- NOTE | 2016-10-10 02:11 | PCM.PHAPRO ---
Progress Date of Service: Oct 10, 2016 Vancomycin dosing by pharmacy for 30 y/o woman with cellulitis O: * She is currently on vancomycin 1000 mg IV every 8 hours * Vancomycin trough level prior to the fourth dose was 13.5 mcg/mL * SCr of 0.53 mg/dL on 10/08 A: * The trough level is appropriate * Vancomycin is not at steady-state, so trough levels will likely increase but still be appropriate P: * Continue current vancomycin dose * Target trough range of 10 - 15 mcg/mL * Drawing a BMP in the morning to monitor renal function Thank you. Pharmacy will continue to follow. Mayra Molina, PharmD Mayra Molina Oct 10, 2016 02:10
--- NOTE | 2016-10-10 04:14 | NUR ---
ABX Patient has Hx of ASE to Vancomycin, preventively pre-medicated with Benadryl and Tylenol. No noted ASE to ABX. Denies pain and or discomfort at this time.
[2016-10-10] MEDS: diphenhydrAMINE 25 mg Capsule PO SCH ×3 (04:47→21:13)
[2016-10-10 05:21] VITALS: BP 100/62; PULSE 84; RESP 18; O2SAT 96
[2016-10-10] MEDS: Vancomycin 1 Gm/200 mL D5W Premix IV SCH (05:53)
[2016-10-10] MEDS: hydrOXYzine Pamoate 25 mg Capsule PO SCH ×4 (06:30→21:25)
[2016-10-10] MEDS: Insulin LISPRO Medium-Dose Scale SUBQ SCH ×4 (08:48→21:27)
[2016-10-10] MEDS: Buprenorphine 2 mg SL Tablet SL SCH ×2 (10:21→21:13)
--- NOTE | 2016-10-10 11:15 | PCM.PNMED ---
Subjective Date of Service Oct 10, 2016 Subjective The patient was seen and examined. Patient states that her pain is well- controlled and had no adverse events over night. Patient does complain of a diffuse rash which started after receiving vancomycin. Patient states that this is happening previously. Patient denies any itching or pain with the rash and states that she is on chronic the Vistaril which does not seem to be helping nor does the by mouth Benadryl decreased the rash. Patient denies any chest pain, shortness of breath, nausea, vomiting, diarrhea. Patient denies chills but does state that she has been having low-grade fevers. Exam Vital Signs Vital Sign - Last Date Time Temp Pulse Resp B/P Pulse Ox O2 Delivery O2 Flow Rate FiO2 10/10/16 05:21 37.7 84 18 100/62 96 Room Air Intake and Output 10/09/16 10/09/16 10/10/16 Cumulative From/Thru 15:00 23:00 07:00 10/08/16 08:23 - 10/10/16 06:19 Intake Total 1773 ml 1285 ml 5882 ml Output Total 1800 ml 800 ml 4800 ml Balance -27 ml 485 ml 1082 ml Intake Oral 1000 ml 1000 ml 3674 ml IV Total 773 ml 285 ml 2208 ml Output Urine Total 1800 ml 800 ml 4800 ml # Voids 1 1 # Bowel Movements 0 Exam Physical Exam: GEN: Patient was awake, alert, responding appropriately to questions HEENT: PERRLA, EOMI, Neck soft supple, trachea midline, diffuse macular rash over the face, superficial scratches over the right eye CV: +S1/S2, RRR, no murmurs auscultated Respiratory: CTAB, no wheezes, rales, rhonchi GI: +bowel sounds x4, soft, compressible, non TTP EXT: no c/c/e MSK: 5/5 upper extremity strength bilaterally, AIN/PIN/radius/ulnar nerve intact bilaterally. Skin: Diffuse macular rash most likely secondary to vancomycin Neuro: CN II-XII grossly intact Psych: mood and affect were appropriate IVs and Medications Medications Reviewed: Medications were reviewed in detail Medications Current Medications Al Hydrox/Mg Hydrox/Simethicone 30 ml Q6 PRN PO; Start 10/08/16 at 13:20 Ondansetron HCl Dose range: 4 mg to 8 mg Q4H PRN IVPUSH; Start 10/08/16 at 13: 20 Acetaminophen 975 mg Q6H PRN PO Last administered on 10/10/16 04:47; Admin Dose 975 MG; Start 10/08/16 at 13:20 Enoxaparin Sodium 40 mg DAILY SUBQ Last administered on 10/10/16 08:49; Admin Dose 40 MG; Start 10/09/16 at 08:30 Senna 17.2 mg BID PRN PO; Start 10/08/16 at 14:10 Polyethylene Glycol 17 gm DAILY PRN PO; Start 10/08/16 at 14:10 Hydroxyzine Pamoate 25 mg QID PO Last administered on 10/08/16 17:19; Admin Dose 25 MG; Start 10/08/16 at 16:30; Stop 10/08/16 at 19:57; Status DC Insulin Glargine 30 unit DAILYAC SUBQ; Start 10/09/16 at 07:30; Stop 10/09/16 at 07:30; Status DC Oxycodone HCl 5 mg Q4H PRN PO; Start 10/08/16 at 15:35 Buprenorphine HCl 8 mg BID SL Last administered on 10/10/16 10:21; Admin Dose 8 MG; Start 10/09/16 at 08:30 Famotidine 20 mg BID PRN PO; Start 10/08/16 at 20:30 Dextrose/Water 25 ml ONCE PRN IV; Start 10/08/16 at 16:25; Stop 10/08/16 at 16: 27; Status DC Insulin Human Lispro Nutritional Dose recomm... PRN PRN SUBQ Last administered on 10/08/16 17:39; Admin Dose 7 UNIT; Start 10/08/16 at 16:30; Stop 10/08/16 at 17:41; Status DC Insulin Human Lispro Nutritional Dose recomm... ACHS SUBQ Last administered on 08:48; Admin Dose 7 UNIT; Start 10/08/16 at 22:00 Hydroxyzine Pamoate 50 mg 50 mg QID PO Last administered on 10/09/16 21:53; Admin Dose 50 MG; Start 10/08/16 at 21:30 Cefazolin Sodium/ Dextrose 2 gm/ Premix 50 ml @ 100 mls/hr Q8 IV Last administered on 10/10/16 08:48; Admin Dose 100 MLS/HR; Start 10/09/16 at 00:30 Vancomycin HCl/ Dextrose/Premix 200 ml @ 100 mls/hr Q8H IV Last administered on 10/10/16 05:53; Admin Dose 100 MLS/HR; Start 10/08/16 at 21:00 Insulin Glargine 30 unit HS SUBQ Last administered on 10/09/16 21:53; Admin Dose 30 UNIT; Start 10/08/16 at 22:45 Diphenhydramine HCl 25 mg Q8H PO Last administered on 10/10/16 04:47; Admin Dose 25 MG; Start 10/09/16 at 20:30 Lab and Diagnostics Result Diagram: 10/09/16 0510 10/10/16 0540 Microbiology TIGIST GS (GRAM STAIN) Final 10/08/16-1031 GRAM STAIN RESULT MODERATE POLYS FEW GRAM POS COCCI TIGIST CULT AEROBIC Preliminary 10/10/16-0713 Organism 1 STAPHYLOCOCCUS AUREUS COLONY COUNT/QUANTITY MODERATE GROWTH Oxacillin Susceptible Penicillin Resistant Staph spp. are Susceptible to Penicillin stable penicillins, Blactam/Blactamase inhibitor combinations, antistaphyloccal cephems, and carbapenems. X-Rays, CTs and MRIs X-RAY CHEST, TWO VIEWS ([id number]) INDICATIONS: cough, fever TECHNIQUE: 2 views of the chest were acquired. COMPARISON: None. FINDINGS: Surgical changes and devices: None. Lungs and pleura: No pleural effusions or pneumothorax. Lungs are clear. Mediastinum: Mediastinal contours are normal. Heart size is normal. Bones and chest wall: No suspicious bony abnormalities. Soft tissues appear unremarkable. IMPRESSION: Normal for age, source of the current cough is not seen. Dictated by: Buster Hull M.D. on 10/08/2016 at 11:25 Assessment & Plan Bilateral shoulder abscesses -Discontinue vancomycin as patient is having adverse reactions of rash skin rashes with no response to decreasing the rate of vancomycin or responding to Benadryl and Vistaril -Continue cefazolin 2 g every 8 hours as cultures have come back and state that the bacteria is sensitive to this drug -Continue dressing changes as previously scheduled -Wound cultures and blood cultures: positive for staphylococcus aureus sensitive to cefazolin -Consider surgical consultation if abscesses do not improve as expected. Type I diabetes mellitus -Continue Lantus and sliding scale insulin. -Continue diabetic diet History of heroin abuse and skin popping -Continue Suboxone. History of bilateral pulmonary embolism -Continue prophylactic Lovenox. -No longer on Coumadin. DVT prophylaxis -Continue SCDs -Continue Lovenox daily and encourage ambulation VTE Prophylaxis: Sub-Q Enoxaparin, SCDs VTE Mechanical Devices: Intermittant Pneumatic CD Resuscitation Status: CPR: Attempt Resuscitation Cheryl Drake DO Oct 10, 2016 11:15
[2016-10-10] MEDS ORDERED: 0.9% Sodium Chloride 100 ML ONE (16:36)
--- NOTE | 2016-10-10 19:14 | NUR ---
Rash/Pain Patient developed a head to toe rash and itching this AM. Blue Salguero. IV Benadryl, 50 mg of Vistaril, and 20 mg of Pepcid given. Patient reported 7/10 eye pain and 4/10 shoulder pain. Denies nausea. Patient independent in room. Call light and tray table within reach. Will continue to monitor patient hourly.
[2016-10-10 20:50] VITALS: BP 114/63; PULSE 85; RESP 18; O2SAT 96
[2016-10-10] MEDS: Insulin GLARgine 100 Unit/mL Syringe SUBQ SCH (21:24)
[2016-10-11] MEDS: CeFAZolin 2 Gm/50 mL D5W IV Premix IV SCH ×2 (01:59→08:21)
[2016-10-11] MEDS: diphenhydrAMINE 25 mg Capsule PO SCH ×4 (04:30→20:55)
--- NOTE | 2016-10-11 04:34 | NUR ---
SLEEPING Patient sleeping peacefully, denies pain at this time. Rash still present with mild itching. Patient requesting Anti-Histamines to relieve ongoing symptoms. Bed in low position, call light within reach, and intentional rounding qh.
[2016-10-11 05:22] VITALS: BP 102/63; PULSE 78; RESP 16; O2SAT 96
[2016-10-11] MEDS: hydrOXYzine Pamoate 25 mg Capsule PO SCH ×4 (05:36→20:55)
[2016-10-11] MEDS: Insulin LISPRO Medium-Dose Scale SUBQ SCH ×4 (07:30→21:08)
[2016-10-11] MEDS: Buprenorphine 2 mg SL Tablet SL SCH ×2 (08:19→21:17)
[2016-10-11 08:54] LABS: Mean Corpuscular Hemoglobin 27.3 pg (27.0-35.0); Mean Corpuscular Volume 79.5 fL (81-100)
[2016-10-11 09:03] VITALS: BP 97/62; PULSE 96; RESP 16; O2SAT 96
[2016-10-11 12:51] VITALS: BP 109/67; PULSE 91; RESP 16; O2SAT 98
--- NOTE | 2016-10-11 16:56 | NUR ---
Rash- Patient stated that she thought the rash on her body "was a lot worse than yesterday," and the itching was too despite medications. Her back especially appeared reddened and excoriated, although rash covered her entire body. MD notified and in to see patient.
--- NOTE | 2016-10-11 18:45 | PCM.PNMED ---
Subjective Date of Service Oct 11, 2016 Subjective Patient was seen and examined at bedside. Patient states that she is still having a diffuse rash which she feels is spreading. Patient states that the Benadryl has helped some with the itching however it is just now more tolerable. Patient denies any chest pain, shortness of breath, nausea, vomiting , diarrhea. Exam Vital Signs Vital Sign - Last Date Time Temp Pulse Resp B/P Pulse Ox O2 Delivery O2 Flow Rate FiO2 10/11/16 12:51 36.9 91 16 109/67 98 10/11/16 05:22 Room Air Intake and Output 10/10/16 10/10/16 10/11/16 Cumulative From/Thru 15:00 23:00 07:00 10/08/16 08:23 - 10/11/16 06:30 Intake Total 320 ml 2312 ml 1069 ml 9583 ml Output Total 1100 ml 5900 ml Balance 320 ml 2312 ml -31 ml 3683 ml Intake Oral 2200 ml 990 ml 6864 ml IV Total 320 ml 112 ml 79 ml 2719 ml Output Urine Total 1100 ml 5900 ml # Voids 2 3 # Bowel Movements 0 Exam Physical Exam: GEN: Patient was awake, alert, responding appropriately to questions HEENT: PERRLA, EOMI, Neck soft supple, trachea midline, nomocephalic/atraumatic CV: +S1/S2, RRR, no murmurs auscultated Respiratory: CTAB, no wheezes, rales, rhonchi GI: +bowel sounds x4, soft, compressible, non TTP EXT: no c/c/e Neuro: CN II-XII grossly intact Skin: Diffuse macular papular rash on the trunk, extremities, and face Psych: mood and affect were appropriate IVs and Medications Medications Reviewed: Medications were reviewed in detail Medications Current Medications Diphenhydramine HCl 25 mg Q8H PO Last administered on 10/11/16 12:42; Admin Dose 25 MG; Start 10/09/16 at 20:30 Doxycycline Hyclate 100 mg 100 mg BID PO Last administered on 10/11/16 17:46; Admin Dose 100 MG; Start 10/11/16 at 16:31 Famotidine/Sodium Chloride/Premix 50 ml @ 200 mls/hr Q12H IV Last administered on 10/11/16 17:45; Admin Dose 200 MLS/HR; Start 10/11/16 at 17:00; Stop at 05:14 Lab and Diagnostics Result Diagram: 10/11/16 0840 10/11/16 0840 Microbiology TIGIST GS (GRAM STAIN) Final 10/08/16-1031 GRAM STAIN RESULT MODERATE POLYS FEW GRAM POS COCCI TIGIST CULT AEROBIC Preliminary 10/10/16-0711 Organism 1 STAPHYLOCOCCUS AUREUS COLONY COUNT/QUANTITY MODERATE GROWTH Oxacillin Susceptible Penicillin Resistant Staph spp. are Susceptible to Penicillin stable penicillins, Blactam/Blactamase inhibitor combinations, antistaphyloccal cephems, and carbapenems. X-Rays, CTs and MRIs X-RAY CHEST, TWO VIEWS ([id number]) INDICATIONS: cough, fever TECHNIQUE: 2 views of the chest were acquired. COMPARISON: None. FINDINGS: Surgical changes and devices: None. Lungs and pleura: No pleural effusions or pneumothorax. Lungs are clear. Mediastinum: Mediastinal contours are normal. Heart size is normal. Bones and chest wall: No suspicious bony abnormalities. Soft tissues appear unremarkable. IMPRESSION: Normal for age, source of the current cough is not seen. Dictated by: Buster Hull M.D. on 10/08/2016 at 11:25 Assessment & Plan Bilateral shoulder abscesses --Discontinue cefazolin 2 g every 8 hours as patient may be having a cross- reactivity to this medication as she does have a penicillin allergy -- Start patient on doxycycline 100 mg twice a day. -- Consult wound care --Wound cultures and blood cultures: positive for staphylococcus aureus sensitive to tetracyclines Type I diabetes mellitus --Continue Lantus and sliding scale insulin. --Continue diabetic diet History of heroin abuse and skin popping --Continue Suboxone. History of bilateral pulmonary embolism --Continue prophylactic Lovenox. --No longer on Coumadin. DVT prophylaxis --Continue SCDs --Continue Lovenox daily and encourage ambulation Disposition: Patient still has macular papular rash most likely secondary to drug allergy. 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 The patient has been off of vancomycin for more than 24 hours and the rash is still spreading. It is thought that she might have a cross-reactivity to the first generation cephalosporin as the patient does have a penicillin allergy. This medication has also been stopped and a new medication has been started, tetracycline. Famotidine has also been added to the patient's regiment as Benadryl and Vistaril are having minimal effect. Hopefully with the addition of the H2- verenice and the cessation of cefazolin this will help to alleviate the patient' s current rash and continued treatment. It is noted that the patient's abscesses are now tunneling as there is about a 4 cm depth on the right deltoid and 2 cm depth on the left deltoid. Wound care has been consulted for further management. VTE Prophylaxis: Sub-Q Enoxaparin, SCDs VTE Mechanical Devices: Intermittant Pneumatic CD Resuscitation Status: CPR: Attempt Resuscitation Time spent Greater than 30 minutes Cheryl Drake DO Oct 11, 2016 18:45
[2016-10-11 19:54] VITALS: BP 95/60; PULSE 85; RESP 16; O2SAT 93
[2016-10-11] MEDS: Insulin GLARgine 100 Unit/mL Syringe SUBQ SCH (21:07)
--- NOTE | 2016-10-12 03:18 | NUR ---
Pain/ Rash Pt. reports that PO Tylenol is effective for pain. Topical hydrocortisone cream was applied to pt's rash. Will continue to monitor.
[2016-10-12 04:03] VITALS: BP 101/55; PULSE 70; RESP 18; O2SAT 96
[2016-10-12] MEDS ORDERED: 0.9% Sodium Chloride 100 ML ONE (05:21)
[2016-10-12] MEDS: diphenhydrAMINE 25 mg Capsule PO SCH ×3 (05:26→21:12)
[2016-10-12] MEDS: hydrOXYzine Pamoate 25 mg Capsule PO SCH ×4 (06:24→21:12)
[2016-10-12 07:08] LABS: Mean Corpuscular Hemoglobin 27.8 pg (27.0-35.0); Mean Corpuscular Volume 80.4 fL (81-100)
[2016-10-12] MEDS ORDERED: 0.9% Sodium Chloride 1,000 ML IV ONE (08:00)
[2016-10-12] MEDS: Insulin LISPRO Medium-Dose Scale SUBQ SCH ×4 (08:33→21:11)
[2016-10-12] MEDS: Buprenorphine 2 mg SL Tablet SL SCH ×2 (08:35→23:05)
[2016-10-12 08:46] VITALS: BP 104/67; PULSE 87; RESP 16; O2SAT 98
[2016-10-12 13:09] VITALS: BP 112/71; PULSE 97; RESP 16; O2SAT 97
--- NOTE | 2016-10-12 14:03 | NUR ---
Itching P: Patient stated, "I think my rash is getting a lot worse, I am itching a lot more" I: Applied hydrocortisone cream on the wrists and ankles E: Patient stated relief of itching
--- NOTE | 2016-10-12 15:17 | NUR ---
SKIN/PAIN Patient continues to have diffuse rash over back, chest, arms, face, stomach, legs and ankles. Administered scheduled benadryl, vistaril and applied hydrocortisone cream. C/o mild pain in bilateral upper arms with movement, states its tolerable. Tolerated dressing change by wound care without any problem.
--- NOTE | 2016-10-12 17:17 | NUR ---
Wound Care Wound evaluation orders received, pt seen at bedside. Pt is a 30 y/o female w/ a hx of prior IV drug abuse, recurrent MRSA abscesses, T1DM, endocarditis, PE, presenting to the ED c/o multiple sites of abscesses onset 1 week ago. She has a hx of septic MRSA and believes that her symptoms today are caused by MRSA. Presents on [facility] floor rm 1015. Conversant female with full body rash and swelling of the hands, wrist and arms. Right deltoid wound in her tattoo, it is a 1 cm opening but tracts/tunnels to 5.5 cm at 12:00 position. Left deltoid is a wound with 1 cm opening which tracks/tunnels 3.5 cm at 12:00. Both wounds are cleaned with hydrogen peroxide and sterile q tip then repacked with 1" gauze packing strip and covered with 2x2 gauze. Pt tolerated treatment well. Given that pt has had abscesses in these same areas in the past it would be best if surgery was consulted to open these wounds so that they can be adequately packed. Nursing can pack wounds daily. Wound Care will follow up as needed. Asked nursing to have hospitalist obtain surgery consult.
[2016-10-12 19:33] VITALS: BP 115/64; PULSE 98; RESP 18; O2SAT 98
--- NOTE | 2016-10-12 19:39 | PCM.PNMED ---
Subjective Date of Service Oct 12, 2016 Subjective Patient was seen and examined today. Patient states that she feels that her itching has improved her rash seems to be improving her face and upper extremities however her lower extremity rash has not improved. Patient complains of lethargy but denies chest pain, shortness of breath, nausea, vomiting, diarrhea, constipation. Exam Vital Signs Vital Sign - Last Date Time Temp Pulse Resp B/P Pulse Ox O2 Delivery O2 Flow Rate FiO2 10/12/16 13:09 36.8 97 16 112/71 97 10/12/16 04:03 Room Air Intake and Output 10/11/16 10/11/16 10/12/16 Cumulative From/Thru 15:00 23:00 07:00 10/08/16 08:23 - 10/12/16 06:23 Intake Total 890 ml 524 ml 05331 ml Output Total 500 ml 350 ml 6750 ml Balance 390 ml 174 ml 4247 ml Intake Oral 890 ml 474 ml 8228 ml IV Total 50 ml 2769 ml Output Urine Total 500 ml 350 ml 6750 ml # Voids 3 # Bowel Movements 0 0 Exam Physical Exam: GEN: Patient was awake, alert, responding appropriately to questions HEENT: PERRLA, EOMI, Neck soft supple, trachea midline, nomocephalic/atraumatic CV: +S1/S2, RRR, no murmurs auscultated Respiratory: CTAB, no wheezes, rales, rhonchi GI: +bowel sounds x4, soft, compressible, non TTP EXT: no c/c/e Skin: Diffuse maculopapular rash, improved on face and posterior trunk compared to yesterday Neuro: CN II-XII grossly intact Psych: mood and affect were appropriate IVs and Medications Medications Reviewed: Medications were reviewed in detail Medications Current Medications Doxycycline Hyclate 100 mg 100 mg BID PO Last administered on 10/12/16 08:33; Admin Dose 100 MG; Start 10/11/16 at 16:31 Famotidine/Sodium Chloride/Premix 50 ml @ 200 mls/hr Q12H IV Last administered on 10/12/16 05:28; Admin Dose 200 MLS/HR; Start 10/11/16 at 17:00; Stop at 05:14; Status DC Hydrocortisone 1 applic BID PRN TOPICAL Last administered on 1/19/17at 13:50; Admin Dose 1 APPLIC; Start 10/11/16 at 20:20 Lab and Diagnostics Result Diagram: 10/12/16 0607 10/12/16 0607 Microbiology TIGIST GS (GRAM STAIN) Final 10/08/16-1031 GRAM STAIN RESULT MODERATE POLYS FEW GRAM POS COCCI TIGIST CULT AEROBIC Preliminary 10/10/16-0713 Organism 1 STAPHYLOCOCCUS AUREUS COLONY COUNT/QUANTITY MODERATE GROWTH Oxacillin Susceptible Penicillin Resistant Staph spp. are Susceptible to Penicillin stable penicillins, Blactam/Blactamase inhibitor combinations, antistaphyloccal cephems, and carbapenems. X-Rays, CTs and MRIs X-RAY CHEST, TWO VIEWS ([id number]) INDICATIONS: cough, fever TECHNIQUE: 2 views of the chest were acquired. COMPARISON: None. FINDINGS: Surgical changes and devices: None. Lungs and pleura: No pleural effusions or pneumothorax. Lungs are clear. Mediastinum: Mediastinal contours are normal. Heart size is normal. Bones and chest wall: No suspicious bony abnormalities. Soft tissues appear unremarkable. IMPRESSION: Normal for age, source of the current cough is not seen. Dictated by: Buster Hull M.D. on 10/08/2016 at 11:25 Assessment & Plan Bilateral shoulder abscesses --Discontinue cefazolin 2 g every 8 hours as patient may be having a cross- reactivity to this medication as she does have a penicillin allergy -- Start patient on doxycycline 100 mg twice a day. -- Consult wound care --Wound cultures and blood cultures: positive for staphylococcus aureus sensitive to tetracyclines -- Consult general surgery as per recommendations of wound care Rash most likely secondary to medication allergy -- Continue Benadryl when necessary -- Continue as Vistaril daily -- Famotidine 2 doses -- Discontinue use of cefazolin change antibiotic to doxycycline -- Consult infectious disease for further recommendations Type I diabetes mellitus --Continue Lantus and sliding scale insulin. --Continue diabetic diet History of heroin abuse and skin popping --Continue Suboxone. History of bilateral pulmonary embolism --Continue prophylactic Lovenox. --No longer on Coumadin. DVT prophylaxis --Continue SCDs --Continue Lovenox daily and encourage ambulation Disposition: Patient still has macular papular rash most likely secondary to drug allergy this seems to be improving slightly compared to yesterday. We will maintain current drug therapy with doxycycline and antihistamines. As the patient's drug allergy does not seem to be responding quickly we will consult Dr. Bill for further recommendations of antibiotic coverage in the setting of multiple drug allergies. Wound care evaluated the patient today and noted that he tunneling might be too deep for outpatient care and may need surgical debridement. General surgery was consulted Dr. Romero. VTE Prophylaxis: Sub-Q Enoxaparin, SCDs VTE Mechanical Devices: Intermittant Pneumatic CD Resuscitation Status: CPR: Attempt Resuscitation Cheryl Drake DO Oct 12, 2016 14:15
[2016-10-12] MEDS: Insulin GLARgine 100 Unit/mL Syringe SUBQ SCH (21:12)
[2016-10-12] MEDS: Sodium Chloride LOK Flush 10 mL Syringe IVFLUSH PRN (21:14)
[2016-10-13] MEDS: diphenhydrAMINE 25 mg Capsule PO SCH ×3 (04:49→22:01)
[2016-10-13 05:07] VITALS: BP 99/60; PULSE 74; RESP 16; O2SAT 98
--- NOTE | 2016-10-13 05:12 | NUR ---
Rash Persistant rash across majority of body surface- benadryll per rx and PRN hydrocortisone cream provided. No complaints of pain this shift, tenderness at shoulders and R side of rib cage. Dressings on shoulders CDI, minimal drainage present under L dressing, no new drainage at this time. Saline lock patent, no complaints of SOB, GI, or cardiac issues. MRSA contact precautions. Will continue to monitor
[2016-10-13] MEDS: hydrOXYzine Pamoate 25 mg Capsule PO SCH ×4 (06:37→22:22)
[2016-10-13 06:45] LABS: Mean Corpuscular Volume 80.9 fL (81-100)
[2016-10-13] MEDS: Insulin LISPRO Medium-Dose Scale SUBQ SCH ×4 (08:47→22:23)
[2016-10-13] MEDS: Buprenorphine 2 mg SL Tablet SL SCH ×2 (10:34→22:22)
[2016-10-13 12:01] VITALS: BP 119/74; PULSE 83; RESP 18; O2SAT 97
--- NOTE | 2016-10-13 12:14 | CONS ---
[address] [address] CONSULTATION REPORT PATIENT: TANNER SYED : 1985 MR#: [id number] ADMIT: 10/08/2016 JOB ID: [id number] DATE OF SERVICE: 10/13/2016 INFECTIOUS DISEASE CONSULT: I thank Dr. Caldera for this timely consult. REASON FOR CONSULTATION: Bilateral shoulder abscesses due to Staph aureus, as well as severe drug reaction to VANCOMYCIN. HISTORY OF THE PRESENT ILLNESS: The patient is a 30-year-old, intramuscular heroin user who is well known to me from multiple prior admissions. She reports that she has been clean in terms of heroin use since July and has been taking Suboxone with good results. She was admitted to this facility some five days ago now with pain in the shoulders associated with some drainage spontaneously from the left shoulder. In the emergency department, it was noted that there was a purulent drainage from the left shoulder abscess, and the right shoulder abscess was opened with a small incision in the ED where more purulent material was expressed and was sent for culture. She was not having any real significant fevers, chills, or sweats at that time. Given her history of soft tissue infections, and a distant history of MRSA endocarditis, the decision was made to start her on vancomycin. Shortly after the initiation of VANCOMYCIN therapy, she developed a full body rash, which was attributed to the VANCOMYCIN, and VANCOMYCIN was stopped after two days or so of therapy. At that point, she was switched to cefazolin because we had demonstrated during prior admissions, though she is PENICILLIN allergic, she can tolerate cephalosporins, but now, in her fifth hospital day, she has been switched to oral doxycycline because the rash has persisted and maybe even worsened, and this raised the question about whether the failure to the drug rash to improve, or perhaps even worsen, might be due to a superimposed Ancef drug rash on top of the VANCOMYCIN drug rash. Infectious disease consultation is requested regarding antibiotic management at this time, and what to do with the severe drug rash. This morning the patient tells us she is feeling a bit better than on admission except that her rash continues to be quite pruritic, warm and uncomfortable. She specifically denies sores in the mouth or in the eyes, however. She also denies having any vaginal sloughing or pain in that region. She is not having fevers or chills at this point, and notes that her shoulder pain is, if anything, a little bit better than on admission. PAST MEDICAL HISTORY: 1. MRSA right-sided endocarditis with septic emboli in 2008. 2. History of multiple soft tissue infections due to IM heroin use since 2009, but careful review of the records shows that all of these were MSSA, not MRSA. 3. Hepatitis C genotype 1A, not yet treated. 4. Type 1 diabetes mellitus. 5. Bipolar disorder. 6. History of septic right knee. SOCIAL HISTORY: The patient does smoke cigarettes. She does not drink alcohol. She says she has been compliant with Suboxone, and has not injected drugs since July. Oddly, she has had shoulder abscesses due to injection drug use in the past but denies recent drug use. FAMILY HISTORY: Negative for TB. Positive for diabetes. REVIEW OF SYSTEMS: The patient is awake and alert. She has no headache at this point, and denies any neurologic symptoms. Her vision is without change. She did have a stye in her right eye when she came in. She reports that has completely resolved with these antibiotics. No problems with the nose. No tenderness or sores in the mouth. No sore throat. No stiff neck. No significant cough or shortness of breath. No nausea, vomiting, diarrhea. No dysuria, urgency, or frequency. No significant muscle pain. She is greatly troubled, of course, by the rash, which extends basically from the top of her head to the tips of the toes. It is pruritic but there is no sloughing. PHYSICAL EXAMINATION: Reveals a young woman lying in bed, with an obvious classic and quite severe maculopapular, erythematous drug eruption. She is afebrile, as she has been really since admission. Temp 36.5, pulse 74, respiratory rate 16, blood pressure 99/60, saturating well on room air. She is alert and oriented x3 and conversational. Her head is without trauma. Her eyes without conjunctivitis or scleral icterus. I no longer see the stye that was a problem earlier. Her oral cavity without thrush or hairy leukoplakia. Her neck is supple. There is no adenopathy. Her lungs are clear posteriorly. Cardiac tones with 2/6 systolic murmur, which I hear both at the left lower sternal border, as well as in the aortic area. Abdomen is soft and nontender without hepatosplenomegaly despite her history of hepatitis C. No ascites. No suprapubic fullness. She does not have a Garcia catheter. Extremities are not swollen. There is no edema. There is no evidence of cellulitis. The shoulders are notable for induration over both deltoid regions. On the left shoulder, there is about a 4 x 5 area of induration with a small packed wound, which is draining a small amount of purulent material. This is not especially tender. On the right shoulder, there is a somewhat smaller, about 2 x 2 cm area of induration, which has a small incision present over it. This is also packed and draining scant amounts of material. The skin rash is a diffuse maculopapular erythematous rash, which is very, very typical of a drug eruption. It goes basically from the top of her head all the way down to and involving her feet. There is no bullae or sloughing of the skin noted. LABORATORIES: Include white count 13,000 when she came in, now 9000. Sed rate was 48 when she came in. Her creatinine is 0.25. Her AST is 170 and actually rising slowly. Her ALT 126 and rising. Albumin 2.9. Urinalysis, no white cells. Blood cultures are negative. Cultures of the arm are now growing two organisms, Staph aureus and prevotella. The Staph aureus is resistant to clindamycin but sensitive to all other standard staph drugs including oxacillin and, of course, cefazolin and linezolid. Vancomycin TIGIST is 1 for this organism. IMAGING: A chest x-ray on admission was normal. IMPRESSION: This is an interesting case of a woman with apparent spontaneous recurrence of her bilateral shoulder abscesses in the absence of any additional drug injections. This story is a little bit unusual in that one would not expect the spontaneous recurrence of bilateral shoulder abscesses months after her last episode if indeed she has been abstinent from intramuscular drugs as she reports. In any event, this is an methicillin-sensitive Staphylococcus aureus infection. She was initially started on VANCOMYCIN because of concerns about methicillin-resistant Staphylococcus aureus, and has suffered a very significant fixed drug eruption. Note that this is not related to the red man syndrome, which is an anaphylactoid reaction caused by deep granulation of mast cells, and is a much more serious and significant drug eruption, which will preclude any future use of VANCOMYCIN. I doubt that the rash is being worsened in any way by the cefazolin she received, as we have given this patient cephalosporins in the past during hospitalizations here without any difficulty but I do think, at this point, we could simply transition her therapy to oral antibiotics rather than use doxycycline. I think I might be inclined to use linezolid in this circumstance, as it is perhaps slightly better for skin and soft tissue infections, though doxycycline would likely be adequate. As to the skin rash, it should fade over the next several days. It may be worthwhile to keep the patient in-house another day or two to make sure there is continued improvement of the rash, and it does not develop into Peterson-Emmanuel syndrome or some more worrisome process but at this point, I am not too concerned. VANCOMYCIN rashes can be very severe including acute generalized exanthematous pustulosis and various bullous complications but at this point, this seems to be more of a garden variety rash, though fairly severe. I see no evidence here for, as mentioned, acute generalized exanthematous pustulosis drug-induced hypersensitivity syndrome or acute generalized exanthematous pustulosis dermatitis, all of which have been reported but I would never rechallenge this patient. Another issue here is the hepatitis C, which should be treated at some point, but is not urgent. I suspect this is the cause of her elevated LFT. RECOMMENDATIONS: 1. I would continue to watch this patient in house. 2. I would switch her to oral linezolid 600 p.o. b.i.d. with a plan to continue 10-14 days. 3. I agree with surgical evaluation to see if the abscesses in her shoulders need to be drained. 4. The patient was told she should never receive VANCOMYCIN again. It is worth noting that she has tolerated cephalosporins in the past, though, and I do not think we need them today. They would not be contraindicated in the future.
--- NOTE | 2016-10-13 14:24 | NUR ---
Pain/ Rash P: Patient complain of throbbing headache. I: Medicated with tylenol 975mg E: Patient stated relief noted. P: Rash is getting slightly better on bilateral arms. States it itches most on thighs, hands and ankles. I: Medicated with benadryl, vistaril, famotidine and topical hydrocortisone cream. Also offered shower for patient but declined at the moment. E: Patient states she does feel some relief intermittently.
--- NOTE | 2016-10-13 14:30 | PCM.PNMED ---
Subjective Date of Service Oct 13, 2016 Subjective Patient was examined at bedside today. Patient denies any chest pain, shortness of breath, nausea, vomiting, diarrhea. Patient still reports itching and diffuse macular papular rash but states that she feels that it is improving her arms. Exam Vital Signs Vital Sign - Last Date Time Temp Pulse Resp B/P Pulse Ox O2 Delivery O2 Flow Rate FiO2 10/13/16 12:01 36.4 83 18 119/74 97 Room Air Intake and Output 10/12/16 10/12/16 10/13/16 Cumulative From/Thru 15:00 23:00 07:00 10/08/16 08:23 - 10/13/16 05:40 Intake Total 1626 ml 711 ml 78810 ml Output Total 6750 ml Balance 1626 ml 711 ml 6584 ml Intake Oral 676 ml 711 ml 9615 ml IV Total 950 ml 3719 ml Output Urine Total 6750 ml # Voids 4 3 10 # Bowel Movements 0 0 0 Exam Physical Exam: GEN: Patient was awake, alert, responding appropriately to questions HEENT: PERRLA, EOMI, Neck soft supple, trachea midline, nomocephalic/atraumatic CV: +S1/S2, RRR, no murmurs auscultated Respiratory: CTAB, no wheezes, rales, rhonchi GI: +bowel sounds x4, soft, compressible, non TTP Skin: Maculopapular rash on face, trunk, upper and lower extremities, bilateral abscess wounds on the deltoid muscles just in covered gauze is mildly blood- tinged EXT: no c/c/e Neuro: CN II-XII grossly intact Psych: mood and affect were appropriate IVs and Medications IV Fluids Current Medications Doxycycline Hyclate 100 mg 100 mg BID PO Last administered on 10/13/16 08:47; Admin Dose 100 MG; Start 10/11/16 at 16:31; Stop 10/13/16 at 11:08; Status DC Famotidine/Sodium Chloride/Premix 50 ml @ 200 mls/hr Q12H IV Last administered on 10/12/16 05:28; Admin Dose 200 MLS/HR; Start 10/11/16 at 17:00; Stop at 05:14; Status DC Hydrocortisone 1 applic BID PRN TOPICAL Last administered on 10/13/16 08:52; Admin Dose 1 APPLIC; Start 10/11/16 at 20:20 Linezolid 600 mg BID PO Last administered on 10/13/16t 12:16; Admin Dose 600 MG ; Start 10/13/16 at 11:10 Medications Reviewed: Medications were reviewed in detail Lab and Diagnostics Result Diagram: 10/13/16 0520 10/13/16 0520 Microbiology TIGIST GS (GRAM STAIN) Final 10/08/16-1031 GRAM STAIN RESULT MODERATE POLYS FEW GRAM POS COCCI TIGIST CULT AEROBIC Preliminary 10/10/16-0713 Organism 1 STAPHYLOCOCCUS AUREUS COLONY COUNT/QUANTITY MODERATE GROWTH Oxacillin Susceptible Penicillin Resistant Staph spp. are Susceptible to Penicillin stable penicillins, Blactam/Blactamase inhibitor combinations, antistaphyloccal cephems, and carbapenems. X-Rays, CTs and MRIs X-RAY CHEST, TWO VIEWS ([id number]) INDICATIONS: cough, fever TECHNIQUE: 2 views of the chest were acquired. COMPARISON: None. FINDINGS: Surgical changes and devices: None. Lungs and pleura: No pleural effusions or pneumothorax. Lungs are clear. Mediastinum: Mediastinal contours are normal. Heart size is normal. Bones and chest wall: No suspicious bony abnormalities. Soft tissues appear unremarkable. IMPRESSION: Normal for age, source of the current cough is not seen. Dictated by: Buster Hull M.D. on 10/08/2016 at 11:25 Assessment & Plan Bilateral shoulder abscesses --Discontinue cefazolin 2 g every 8 hours as patient may be having a cross- reactivity to this medication as she does have a penicillin allergy -- Discontinue doxycycline 100 mg twice a day as per recommendation from infectious disease -- Continue dressing changes as recommended by wound care --Wound cultures and blood cultures: positive for staphylococcus aureus sensitive to tetracyclines, negative for MRSA -- Consult general surgery consulted Rash most likely secondary to medication allergy -- Continue Benadryl when necessary -- Continue as Vistaril daily -- Famotidine 2 doses -- Discontinue use of cefazolin change antibiotic to Linezolid -- Consult infectious disease for further recommendations Type I diabetes mellitus --Continue Lantus and sliding scale insulin. --Continue diabetic diet History of heroin abuse and skin popping --Continue Suboxone. History of bilateral pulmonary embolism --Continue prophylactic Lovenox. --No longer on Coumadin. DVT prophylaxis --Continue SCDs --Continue Lovenox daily and encourage ambulation Disposition: Patient still has macular papular rash most likely secondary to vancomycin reaction seems to be improving slightly compared to yesterday. Continue antihistamine usage for comfort. Infectious disease was consulted and suggested using Linezolid. Awaiting recommendations from general surgery. VTE Prophylaxis: Sub-Q Enoxaparin, SCDs VTE Mechanical Devices: Intermittant Pneumatic CD Resuscitation Status: CPR: Attempt Resuscitation Cheryl Drake DO Oct 13, 2016 14:29
[2016-10-13 16:27] VITALS: BP 100/58; PULSE 72; RESP 19; O2SAT 97
[2016-10-13 18:26] LABS: COLOR,URINE YELLOW (YELLOW)
[2016-10-13 18:27] LABS: APPEARANCE,URINE CLEAR (CLEAR,HAZY); OCCULT BLOOD,URINE NEGATIVE (NEGATIVE); PH,URINE 5.5 (5.0-8.0); UROBILINOGEN,URINE NORMAL (NORMAL)
--- NOTE | 2016-10-13 20:03 | NUR ---
Rash Patient states the rash appears about the same as it did earlier in the day. Rash covers patient's entire body and is bright red. Patient states she had a reaction to Vancomycin once before much like the one she has now. Hydrocortisone cream was given to patient to apply over itchy area's
[2016-10-13 20:52] VITALS: BP 110/78; PULSE 80; RESP 20; O2SAT 98
[2016-10-13] MEDS: Insulin GLARgine 100 Unit/mL Syringe SUBQ SCH (22:00)
[2016-10-14] MEDS: diphenhydrAMINE 25 mg Capsule PO SCH ×3 (05:13→20:19)
[2016-10-14 05:49] VITALS: BP 106/58; PULSE 87; RESP 20; O2SAT 96
[2016-10-14] MEDS: hydrOXYzine Pamoate 25 mg Capsule PO SCH ×2 (06:22→11:38)
[2016-10-14 07:05] LABS: Mean Corpuscular Hemoglobin 27.7 pg (27.0-35.0); Mean Corpuscular Volume 80.4 fL (81-100)
[2016-10-14] MEDS: Insulin LISPRO Medium-Dose Scale SUBQ SCH ×4 (09:20→22:07)
[2016-10-14] MEDS: Buprenorphine 2 mg SL Tablet SL SCH ×2 (10:06→20:20)
--- NOTE | 2016-10-14 11:55 | PCM.PNMED ---
Subjective Date of Service Oct 14, 2016 Subjective Patient was examined at bedside today. Patient denies any chest pain, shortness of breath, nausea, vomiting, diarrhea. Patient states that her rash does seem to be improving and the itching is lessening. Exam Vital Signs Vital Sign - Last Date Time Temp Pulse Resp B/P Pulse Ox O2 Delivery O2 Flow Rate FiO2 10/14/16 05:49 36.8 87 20 106/58 96 Room Air Intake and Output 10/13/16 10/13/16 10/14/16 Cumulative From/Thru 15:00 23:00 07:00 10/08/16 08:23 - 10/14/16 06:40 Intake Total 1420 ml 800 ml 14810 ml Output Total 100 ml 6850 ml Balance 1320 ml 800 ml 8704 ml Intake Oral 1420 ml 800 ml 26567 ml IV Total 3719 ml Output Urine Total 100 ml 6850 ml # Voids 3 1 14 # Bowel Movements 0 Exam Physical Exam: GEN: Patient was awake, alert, responding appropriately to questions HEENT: PERRLA, EOMI, Neck soft supple, trachea midline, nomocephalic/atraumatic CV: +S1/S2, RRR, mild systolic murmur auscultated Respiratory: CTAB, no wheezes, rales, rhonchi GI: +bowel sounds x4, soft, compressible, non TTP EXT: no c/c/e, bilateral deltoid abscesses non-erythematous/edematous Skin: Positive macular papular rash on the head anterior-posterior trunk and extremities improved from yesterday Neuro: CN II-XII grossly intact Psych: mood and affect were appropriate IVs and Medications Medications Reviewed: Medications were reviewed in detail Medications Current Medications Linezolid 600 mg BID PO Last administered on 10/14/16t 09:11; Admin Dose 600 MG ; Start 10/13/16 at 11:10 Lab and Diagnostics Result Diagram: 10/14/16 0550 10/14/16 0550 Microbiology TIGIST GS (GRAM STAIN) Final 10/08/16-1031 GRAM STAIN RESULT MODERATE POLYS FEW GRAM POS COCCI TIGIST CULT AEROBIC Preliminary 10/10/16-0713 Organism 1 STAPHYLOCOCCUS AUREUS COLONY COUNT/QUANTITY MODERATE GROWTH Oxacillin Susceptible Penicillin Resistant Staph spp. are Susceptible to Penicillin stable penicillins, Blactam/Blactamase inhibitor combinations, antistaphyloccal cephems, and carbapenems. X-Rays, CTs and MRIs X-RAY CHEST, TWO VIEWS ([id number]) INDICATIONS: cough, fever TECHNIQUE: 2 views of the chest were acquired. COMPARISON: None. FINDINGS: Surgical changes and devices: None. Lungs and pleura: No pleural effusions or pneumothorax. Lungs are clear. Mediastinum: Mediastinal contours are normal. Heart size is normal. Bones and chest wall: No suspicious bony abnormalities. Soft tissues appear unremarkable. IMPRESSION: Normal for age, source of the current cough is not seen. Dictated by: Buster Hull M.D. on 10/08/2016 at 11:25 Assessment & Plan Bilateral shoulder abscesses --Discontinue cefazolin 2 g every 8 hours as patient may be having a cross- reactivity to this medication as she does have a penicillin allergy -- Discontinue doxycycline 100 mg twice a day as per recommendation from infectious disease -- Nursing to instruct patient on new wound care dressing changes as prescribed by the Dr. Romero from general surgery --Wound cultures and blood cultures: positive for staphylococcus aureus sensitive to tetracyclines, negative for MRSA -- General surgery consulted and recommendations have been made Rash most likely secondary to medication allergy to vancomycin -- Continue Benadryl when necessary -- Continue as Vistaril daily -- Famotidine 2 doses -- Discontinue use of cefazolin change antibiotic to Linezolid 600 mg twice a day as recommended by infectious disease Type I diabetes mellitus --Continue Lantus and sliding scale insulin. --Continue diabetic diet History of heroin abuse and skin popping --Continue Suboxone. History of bilateral pulmonary embolism --Continue prophylactic Lovenox. --No longer on Coumadin. DVT prophylaxis --Continue SCDs --Continue Lovenox daily and encourage ambulation Disposition: Patient still has macular papular rash which is improving. As per recommendations by infectious disease the patient will take Nasalide 600 mg twice a day. Infectious disease feels that the patient should never take vancomycin again however he does not believe that the patient is allergic to cephalosporins. General surgery has been by to visit the patient and states that the patient should no longer pack the wound but to use saline rinses instead and cover the wounds. Patient will follow-up as an outpatient with wound care. Patient will most likely be discharged after the weekend with follow-up at the wound care clinic. Nursing will continue to instruct the patient on self wound care. VTE Prophylaxis: Sub-Q Enoxaparin, SCDs VTE Mechanical Devices: Intermittant Pneumatic CD Resuscitation Status: CPR: Attempt Resuscitation Cheryl Drake DO Oct 14, 2016 11:55
[2016-10-14 12:26] VITALS: BP 126/77; PULSE 85; RESP 20; O2SAT 99
--- NOTE | 2016-10-14 14:10 | CONS ---
[address] [address] CONSULTATION REPORT PATIENT: TANNER SYED : 1985 MR#: [id number] ADMIT: 10/08/2016 JOB ID: [id number] DATE OF SERVICE: 10/14/2016 SURGICAL CONSULTATION: We been asked by the hospitalist service to consult on this 30-year-old female with bilateral shoulder infections. HISTORY OF PRESENT ILLNESS: The patient has had recurrent shoulder abscesses. Most recently, she had these drained in the emergency department through fairly small incisions and has been having these packed and receiving antibiotic treatment here in the hospital. Two days ago there was some consideration that perhaps General Surgery should open these wounds up further. Since that time, she has had diffuse skin rash reactions from multiple antibiotics. On examination, she has a diffuse skin rash but no obvious erythema associated with infection around either of two 1 cm in diameter punctate lesions on either shoulder. She does not have any underlying fluctuance or tenderness though there is some induration on the right greater than the left shoulder. LABORATORIES: Her white count remains normal at 6.4. IMAGING: There is no imaging of the shoulders. IMPRESSION AND PLAN: Although these are very small and deep openings, I am not sure at this point that the patient would benefit from opening up her superficial skin much wider. I think that there is no deep undrained infection and my recommendation would be for her to irrigate out both wounds with sterile normal saline in a syringe two times a day at least and then rather then pack them to simply keep the superficial portion open using a Q-tip dipped in hydrogen peroxide. If she does this over the next month, these should slowly close up from inside. If she has recurrent abscesses or signs of ongoing infection, she should have CT imaging of both shoulders followed by more aggressive surgical drainage as the initial drainage procedure. I have explained to the patient. I have written an order in the electronic medical record for wound care and she can have followup in [facility]ound Care Clinic as an outpatient. General Surgery will not follow her on a regular basis unless requested to.
--- NOTE | 2016-10-14 18:02 | NUR ---
Social Work: Brief Note Patient was discussed in daily rounds and it is likely that patient will discharge 10/15 or 10/16. Patient will receive outpatient wound care once discharged. Patient requested assistance with admittance into [facility]. SW to called [facility] for the criteria for admittance and was notified by jr that patient has to report to [address] [place] [id number] at 8pm with some form of I.D to [facility] into the [facility]. Jr stated that the building is open 24-hours a day and the patient is able to wait in the building if she arrives before 8 p.m. SW will notify patient. PLAN: Patient is homeless and living in car. SW to provide patient with [facility] information. SW will continue to follow. follow. Julianne Singh LMSW, ACSneha
[2016-10-14 19:45] VITALS: BP 138/78; PULSE 80; RESP 20; O2SAT 100
--- NOTE | 2016-10-14 19:46 | NUR ---
Rash, Dressing Change Patient continues to have generalized rash over most of body. Rash seems to be lessening in redness, patient reports decreasing itching as well. Bilateral shoulder dressing changed per wound dressing instructions. Patient tolerated dressing change well, stating that pain was within a tolerable level. Patient given instruction of how to change dressing in anticipation of future dressing changes once discharged. Care is ongoing.
[2016-10-14] MEDS: Insulin GLARgine 100 Unit/mL Syringe SUBQ SCH (22:06)
[2016-10-15 04:25] VITALS: BP 118/71; PULSE 85; RESP 18; O2SAT 92
[2016-10-15] MEDS: diphenhydrAMINE 25 mg Capsule PO SCH ×3 (04:28→20:45)
--- NOTE | 2016-10-15 06:40 | NUR ---
Rash Rash appears much better than it did the night before. Patient states that she still itches a lot, but the itching is less than before. Patient A&Ox3. Up independently to bathroom. Shoulder dressings clean dry and intact.
[2016-10-15] MEDS: Insulin LISPRO Medium-Dose Scale SUBQ SCH ×4 (07:30→20:58)
[2016-10-15] MEDS: Buprenorphine 2 mg SL Tablet SL SCH ×2 (08:32→20:45)
[2016-10-15 09:03] VITALS: BP 98/60; PULSE 72; RESP 18; O2SAT 96
[2016-10-15 13:55] VITALS: BP 130/86; PULSE 89; RESP 20; O2SAT 96
--- NOTE | 2016-10-15 14:20 | PCM.PROC ---
Procedure Note Procedure: Procedure: Osteopathic Manipulative Treatment Subjective: Patient was seen and examined patient complaining of neck pain. Patient states that the neck pain does not seem to be responding well to any of the pain medications and seems to be constant. Patient describes the pain as a dull achy and deep muscular pain. Risks and benefits of OMT were explained to the patient and verbal consent obtained. Osteopathic Structural Exam: Head: OA ESRRL, OA compression left greater than right Cervicals: C6-C7 ESLRL Thoracics: Thoracic outlet rotated left Ribs: First rib on the right Upper extremities: Right clavicle restriction, trapezius hypertonicity left greater than right Patient responded well to treatment. Patient stated that she felt immediate relief after treatment. Osteopathic techniques used: Myofascial release, Cranial, HVLA, BLT, muscle energy and soft tissue technique Cheryl Drake DO Oct 15, 2016 14:20
--- NOTE | 2016-10-15 14:26 | PCM.PNMED ---
Subjective Date of Service Oct 15, 2016 Subjective Patient was examined at bedside today. Patient denies any chest pain, shortness of breath, nausea, vomiting, diarrhea. Patient states that she feels that her rash is significantly improving. Patient complains of neck pain specifically at the base of the skull. Exam Vital Signs Vital Sign - Last Date Time Temp Pulse Resp B/P Pulse Ox O2 Delivery O2 Flow Rate FiO2 10/15/16 13:55 36.7 89 20 130/86 96 Room Air Intake and Output 10/14/16 10/14/16 10/15/16 Cumulative From/Thru 15:00 23:00 07:00 10/08/16 08:23 - 10/15/16 06:29 Intake Total 1400 ml 920 ml 14335 ml Output Total 6850 ml Balance 1400 ml 920 ml 12007 ml Intake Oral 1400 ml 920 ml 35847 ml IV Total 3719 ml Output Urine Total 6850 ml # Voids 5 2 21 # Bowel Movements 0 0 Exam Physical Exam: GEN: Patient was awake, alert, responding appropriately to questions HEENT: PERRLA, EOMI, Neck soft supple, trachea midline, nomocephalic/atraumatic CV: +S1/S2, RRR, no murmurs auscultated Respiratory: CTAB, no wheezes, rales, rhonchi GI: +bowel sounds x4, soft, compressible, non TTP EXT: no c/c/e Skin: Positive macular rash moderately improved compared to yesterday Neuro: CN II-XII grossly intact Psych: mood and affect were appropriate Osteopathic Structural Exam: Head: OA ESRRL, OA compression left greater than right Cervicals: C6-C7 ESLRL Thoracics: Thoracic outlet rotated left Ribs: First rib on the right Upper extremities: Right clavicle restriction, trapezius hypertonicity left greater than right IVs and Medications Medications Reviewed: Medications were reviewed in detail Medications Current Medications Hydroxyzine Pamoate 50 mg QID PO Last administered on 10/15/16t 11:46; Admin Dose 50 MG; Start 10/14/16 at 21:30 Metronidazole HCl 500 mg Q8 PO; Start 10/15/16 at 12:25; Stop 10/25/16 at 12:26 Lab and Diagnostics Result Diagram: 10/14/16 0550 10/14/16 0550 Microbiology TIGIST GS (GRAM STAIN) Final 10/08/16-1031 GRAM STAIN RESULT MODERATE POLYS FEW GRAM POS COCCI TIGIST CULT AEROBIC Preliminary 10/10/16 Organism 1 STAPHYLOCOCCUS AUREUS COLONY COUNT/QUANTITY MODERATE GROWTH Oxacillin Susceptible Penicillin Resistant Staph spp. are Susceptible to Penicillin stable penicillins, Blactam/Blactamase inhibitor combinations, antistaphyloccal cephems, and carbapenems. X-Rays, CTs and MRIs X-RAY CHEST, TWO VIEWS ([id number]) INDICATIONS: cough, fever TECHNIQUE: 2 views of the chest were acquired. COMPARISON: None. FINDINGS: Surgical changes and devices: None. Lungs and pleura: No pleural effusions or pneumothorax. Lungs are clear. Mediastinum: Mediastinal contours are normal. Heart size is normal. Bones and chest wall: No suspicious bony abnormalities. Soft tissues appear unremarkable. IMPRESSION: Normal for age, source of the current cough is not seen. Dictated by: Buster Hull M.D. on 10/08/2016 at 11:25 Assessment & Plan Bilateral shoulder abscesses --Discontinue cefazolin 2 g every 8 hours as patient may be having a cross- reactivity to this medication as she does have a penicillin allergy -- Discontinue doxycycline 100 mg twice a day as per recommendation from infectious disease -- Nursing to instruct patient on new wound care dressing changes as prescribed by the Dr. Romero from general surgery --Wound cultures and blood cultures: positive for staphylococcus aureus sensitive to tetracyclines, negative for MRSA -- General surgery consulted and recommendations have been made -- Continue Nasalide 600 mg twice a day. Day 2/10 Rash most likely secondary to medication allergy to vancomycin -- Continue Benadryl when necessary -- Continue as Vistaril daily -- Famotidine 2 doses -- Discontinue use of cefazolin change antibiotic to Linezolid 600 mg twice a day as recommended by infectious disease Type I diabetes mellitus --Continue Lantus and sliding scale insulin. --Continue diabetic diet History of heroin abuse and skin popping --Continue Suboxone. History of bilateral pulmonary embolism --Continue prophylactic Lovenox. --No longer on Coumadin. DVT prophylaxis --Continue SCDs --Continue Lovenox daily and encourage ambulation Disposition: Patient says that he was responding well to treatment. Patient's macular rash is moderately improved. We will continue patient on Linezolid as recommended by infectious. Patient will follow-up with wound care clinic now patient and continue to clean the wounds as instructed by Dr. Romero. Patient will most likely be discharged tomorrow to a [place] [facility] and with a prescription for 7 more days of linezolid. VTE Prophylaxis: Sub-Q Enoxaparin, SCDs VTE Mechanical Devices: Intermittant Pneumatic CD Resuscitation Status: CPR: Attempt Resuscitation Cheryl Drake DO Oct 15, 2016 14:26
--- NOTE | 2016-10-15 17:44 | PROG NOTE ---
[address] [address] PROGRESS NOTE PATIENT: TANNER SYED : 1985 MR#: [id number] ADMIT: 10/08/2016 JOB ID: [id number] DATE: 10/15/2016 REASON FOR FOLLOWUP: Bilateral pyogenic abscesses of the deltoids. INTERVAL HISTORY: Over the weekend, the patient's dramatic drug rash, which had been triggered by Vanco, has largely subsided. She has had no additional fevers, chills, or sweats. She notes that there is less drainage from her bilateral shoulder abscesses and that they are gradually feeling better. No pulmonary or GI symptoms. PHYSICAL EXAMINATION: Reveals an afebrile woman, temp 36.2, pulse 72, respiratory rate 18, blood pressure 98/60. She is saturating well on room air. No acute distress. Her very impressive maculopapular fixed drug eruption has faded by about 50% over the weekend. There is no skin breakdown, sloughing, oral lesions or conjunctival lesions consistent with Peterson Emmanuel's-type syndrome. Lungs are clear. Cardiac tones without change. The bilateral shoulder abscesses have much less induration present around them and small drains are present in both. LABORATORIES: Include a white count which has settled to 6400, creatinine 0.6. LFTs basically normal. Note that her platelet count remains excellent at 273. Cultures include MSSA which is growing from her arms which is clinda resistant as well as now Prevotella from one culture. IMPRESSION: This young woman who states she stop all intramuscular opiate use a couple of months ago presents with bilateral shoulder abscesses which are growing methicillin-sensitive Staphylococcus aureus as well as Prevotella. She is improving on her oral linezolid which was chosen because of the complexities of her drug allergy history including now with very severe allergy to VANCOMYCIN, previously documented allergies to PENICILLIN and SULFA drugs. We now have anaerobes growing which is going to require the addition of an anti-anaerobic drug. RECOMMENDATIONS: 1. The patient should continue with linezolid until about October 25 or 10 more days. 2. I have started Flagyl 500 t.i.d. here in the hospital, but she could be discharged on 500 b.i.d. to continue for about 10 more days or until October 25. 3. I cautioned the patient about drinking alcohol and Flagyl. She said she does not drink alcohol in any event. 4. The patient can be discharged tomorrow, and I do not think I will need to see her again given that her ID problems seem to have been sorted out. So, thank you very much and ID will sign off.
[2016-10-15 18:14] VITALS: BP 133/78; PULSE 83; RESP 16; O2SAT 98
--- NOTE | 2016-10-15 19:44 | NUR ---
Shoulder Dressing Change, Rash Shoulder dressings changed per instructions today. Patient tolerated dressing change well, states that wounds are not painful. Patient reports rash is much decreased, is itching less. Patient still has rash over much of body, but is decreasing in redness. Care is ongoing
[2016-10-15 19:46] VITALS: BP 123/73; PULSE 79; RESP 18; O2SAT 96
[2016-10-15] MEDS: Insulin GLARgine 100 Unit/mL Syringe SUBQ SCH (20:46)
--- NOTE | 2016-10-16 00:58 | NUR ---
Rash On assessment, patients skin from face to calves was covered in a red, blotchy rash. Patient stated that she feels itchy and requested more lotion to smooth over skin. Patient denied pain. VSS. Call light within reach. Patient sitting up in bed with no other stated complaints.
[2016-10-16] MEDS: diphenhydrAMINE 25 mg Capsule PO SCH ×2 (04:13→12:42)
[2016-10-16 04:15] VITALS: BP 118/66; PULSE 80; RESP 16; O2SAT 98
[2016-10-16 05:27] LABS: Mean Corpuscular Hemoglobin 27.6 pg (27.0-35.0); Mean Corpuscular Volume 80.5 fL (81-100)
[2016-10-16] MEDS ORDERED: 0.9% Sodium Chloride 1,000 ML IV ONE (07:15)
[2016-10-16 09:10] VITALS: BP 99/54; PULSE 80; O2SAT 94
[2016-10-16] MEDS: Insulin LISPRO Medium-Dose Scale SUBQ SCH ×2 (09:27→12:44)
[2016-10-16] MEDS: Buprenorphine 2 mg SL Tablet SL SCH (09:48)
--- NOTE | 2016-10-16 11:16 | PCM.DIMED ---
Discharge Instructions Date of Service Oct 16, 2016 Dates of Hospitalization Oct 08, 2016 at 11:59 Discharge Diagnosis Discharge Diagnosis Bilateral shoulder abscesses Rash most likely secondary to medication allergy to vancomycin Type I diabetes mellitus History of heroin abuse and skin popping History of bilateral pulmonary embolism Medication Instructions Please continue to take both the linezolid and Flagyl twice a day until October 25. Please take the entire course of medication and do not save any pills. Diet Diabetic Activity No restrictions Call your provider Fever or Chills, Shortness of breath, Bleeding, Chest pain, Excessive diarrhea Patient Instructions Follow-up with PCP in: 1 week Provider: [facility] Follow-up in: 1 week (you have an appointment in the wound care clinic on 10/18 at 9:00 in the morning. Please do not miss this appointment.) Cheryl Drake DO Oct 16, 2016 11:16
[2016-10-16] MEDS ORDERED: DIPH25CA6 PO (11:19)
[2016-10-16] MEDS ORDERED: LINE600T2 PO (11:19)
[2016-10-16] MEDS ORDERED: METR500T PO (11:19)
--- NOTE | 2016-10-16 14:04 | PCM.PROC ---
Procedure Note Procedure: Procedure: Osteopathic Manipulative Treatment Subjective: Patient was seen and examined today for follow-up neck pain. The patient states that her neck is significantly improved however there was 1 minor lingering area of pain at the base of the occiput on the right. The patient stated that it was improved from yesterday. Risks and benefits of OMT were explained to the patient and verbal consent obtained. Osteopathic Structural Exam: Head: OA compression on the right, Cervicals: C2 rotated right, C3-C5 ESrRr Patient responded well to treatment. Patient stated that her neck pain significantly improved after treatment. Osteopathic techniques used: HVLA and soft tissue technique Cheryl Drake DO Oct 16, 2016 14:04
--- NOTE | 2016-10-16 14:13 | PCM.DC.MED ---
Discharge Summary Date of Service Oct 16, 2016 Dates of Hospitalization Date of Hospital Admission Oct 08, 2016 at 11:59 Date of Discharge: Oct 16, 2016 Providers: Admitting Physician: Nate Park MD Primary Care Physician: Chiara Powell Attending Physician: Nate Park MD Diagnosis at Time of Discharge Diagnosis at Time of Discharge Bilateral shoulder abscesses Rash most likely secondary to medication allergy to vancomycin Type I diabetes mellitus History of heroin abuse and skin popping History of bilateral pulmonary embolism Procedures XRay, CTs & MRIs X-RAY CHEST, TWO VIEWS ([id number]) INDICATIONS: cough, fever TECHNIQUE: 2 views of the chest were acquired. COMPARISON: None. FINDINGS: Surgical changes and devices: None. Lungs and pleura: No pleural effusions or pneumothorax. Lungs are clear. Mediastinum: Mediastinal contours are normal. Heart size is normal. Bones and chest wall: No suspicious bony abnormalities. Soft tissues appear unremarkable. IMPRESSION: Normal for age, source of the current cough is not seen. Dictated by: Buster Hull M.D. on 10/08/2016 at 11:25 Brief History This is a 30-year-old heroin using female who has a history of multiple MRSA skin abscesses, but claims to be in remission from heroin use for the last 2 months, while on Suboxone. She recently developed a rash likely to be staph on the right eyebrow. She was treated with doxycycline. This produced some vomiting. And so she was changed to clindamycin at an urgent care visit several days ago. She then developed painful and red swelling on the lateral aspects of both shoulders. This is in a location where she has scars from previous skin popping infections. In the emergency department she has had these areas opened up and drained copious amounts of greenish pus. She has had endocarditis once before. In the emergency department a new heart murmur was noted which I do not hear on my exam. The right eye rash/infection appears to be resolving. She has had no fevers, chills, sweats or infections in any other areas. She has now been admitted for IV vancomycin therapy. Cultures were done in the emergency department. Hospital Course Patient is a 30-year-old female who presented with bilateral shoulder abscesses. The patient was treated with vancomycin and cefazolin. However the patient had what thought to be red man syndrome reaction to vancomycin. The rate of vancomycin was decreased and the patient was also placed on Benadryl and Vistaril with no relief from the vancomycin reaction. Sensitivities of the staphylococci came back sensitive to cefazolin and the vancomycin was immediately stopped and the patient continued on cefazolin. The patient's diffuse maculopapular rash continued and there was thought to be a cross-reactivity between the cefazolin as the patient does have an allergy to penicillin. Cipro was on was discontinued and doxycycline was also prescribed and infectious disease was consulted. Infectious disease decided that linezolid 600 mg twice a day and metronidazole 500 mg twice a day was a better regimen to treat the patient's bacteria infection. Infectious disease has recommended that the patient add vancomycin as an allergy to medications and should not be given vancomycin in the future. However he did comment that the cefazolin and other cephalosporins may be continued in the future. Both wound care and general surgery were also consulted and the decision was that the patient should continue with saline rinses and cleaning with a Q-tip for debridement of the wounds, but no surgical closure is necessary. They did recommend however that the patient should continue to follow-up regularly with the wound clinic. Patient will be discharged to [facility] as the patient is homeless. The shoulder has been contacted and are expecting her. The patient has an appointment with the wound care clinic on 10/18/2016 at 9 AM. The patient did complain of some mild neck pain and base of the skull pain while present which were musculoskeletal in nature. The patient responded well to OMT and should continue stretching at home for continued relief. Exam Vital Signs (Last) Date Time Temp Pulse Resp B/P Pulse Ox O2 Delivery O2 Flow Rate FiO2 10/16/16 09:10 36.6 80 99/54 94 Room Air 10/16/16 04:15 16 Exam Physical Exam: GEN: Patient was awake, alert, responding appropriately to questions HEENT: PERRLA, EOMI, Neck soft supple, trachea midline, nomocephalic/atraumatic CV: +S1/S2, RRR, no murmurs auscultated Respiratory: CTAB, no wheezes, rales, rhonchi GI: +bowel sounds x4, soft, compressible, non TTP Skin: Mild macular rash significantly improved. EXT: no c/c/e Neuro: CN II-XII grossly intact Psych: mood and affect were appropriate Test 10/08/16 10:10 10/08/16 12:33 10/08/16 21:15 10/09/16 05:10 Erythrocyte Sedimentation Rate 48mm/hr (0-32) Hematology Comments Wbc Hemoglobin A1c 9.5% (4.8-5.6) Lactic Acid Level 1.4mmol/L (0.4-2.0) Magnesium Level 1.6mg/dL (1.6-2.6) Troponin T < 0.010ug/L (0.0-0.011) C-Reactive Protein 3.5mg/dL (0.0-0.5) Hold Escobar Top Tube Received (Received) Hold Red Top Tube Received (Received) Neutrophils (%) (Auto) 55.9% (40-74) Lymphocytes (%) (Auto) 24.4% (14-46) Monocytes (%) (Auto) 15.9% (4-12) Eosinophils (%) (Auto) 0.3% (0-5) Basophils (%) (Auto) 1.0% (0-3) Test 10/09/16 20:06 10/13/16 05:20 10/13/16 18:00 10/16/16 05:05 Vancomycin Level Trough 13.5mcg/mL Total Bilirubin 0.3mg/dL (0.0-1.2) Aspartate Amino Transf (AST/SGOT) 170U/L (0-50) Alanine Aminotransferase (ALT/SGPT) 126U/L (0-32) Alkaline Phosphatase 73U/L (25-150) Total Protein 7.1g/dL (6.4-8.4) Albumin 2.9g/dL (3.4-5.0) Urine Color Yellow (YELLOW) Urine Appearance Clear (CLEAR,HAZY) Urine pH 5.5 (5.0-8.0) Urine Specific [place] 1.025 (1.003-1.035) Urine Protein Negativemg/dL (NEG,TRACE) Urine Glucose (UA) Negativemg/dL (NEGATIVE) Urine Ketones Negativemg/dL (NEGATIVE) Urine Occult Blood Negative (NEGATIVE) Urine Nitrite Negative (NEGATIVE) Urine Bilirubin Negative (NEGATIVE) Urine Urobilinogen Normalmg/dL (NORMAL) Urine Leukocyte Esterase Negative (NEGATIVE) Urine RBC 0-2/hpf (0-2) Urine WBC 0-5/hpf (0-5) Urine Epithelial Cells None/hpf (NONE-MOD) Urine Crystals None seen (NONE SEEN) Urine Bacteria Few/hpf (NONE-FEW) Urine Hyaline Casts None/lpf (NONE) Urine Granular Casts None seen (NONE SEEN) Urine Waxy Casts None seen (NONE SEEN) Urine Red Blood Cell Casts None seen (NONE SEEN) Urine White Blood Cell Casts None seen (NONE SEEN) Urine Mucus Present (None Seen) Urine Trichomonas None seen (NONE SEEN) Urine Yeast None (NONE SEEN) Urinalysis Comment None Urine Culture Reflexed Not indicated Urine HCG, Qualitative Negative (Negative) White Blood Count 8.7th/mm3 (3.8-10.1) Red Blood Count 4.56mil/mm3 (3.90-5.20) Hemoglobin 12.6g/dL (12.0-15.6) Hematocrit 36.7% (35.0-46.0) Mean Corpuscular Volume 80.5fL (81-100) Mean Corpuscular Hemoglobin 27.6pg (27.0-35.0) Mean Corpuscular Hemoglobin Concent 34.3% (32.0-37.0) Red Cell Distribution Width 13.2% (12.3-15.4) Platelet Count 271bil/L (150-400) Sodium Level 133mEq/L (134-144) Potassium Level 5.1mEq/L (3.5-5.2) Chloride Level 95mEq/L (97-108) Carbon Dioxide Level 26mmol/L (18-29) Blood Urea Nitrogen 9mg/dL (6-20) Creatinine 0.53mg/dL (0.57-1.00) Estimat Glomerular Filtration Rate 193mL/min (>59) Glucose Level 283mg/dL (60-99) Calcium Level 9.0mg/dL (8.5-10.1) Microbiology Results TIGIST GS (GRAM STAIN) Final 10/08/16-103 GRAM STAIN RESULT MODERATE POLYS FEW GRAM POS COCCI TIGIST CULT AEROBIC Preliminary 10/10/16-712 Organism 1 STAPHYLOCOCCUS AUREUS COLONY COUNT/QUANTITY MODERATE GROWTH Oxacillin Susceptible Penicillin Resistant Staph spp. are Susceptible to Penicillin stable penicillins, Blactam/Blactamase inhibitor combinations, antistaphyloccal cephems, and carbapenems. Discharge Medications Discharge Medications Buprenorphine HCl/Naloxone HCl (Suboxone 8 mg-2 mg Sl Film) 1 Each Film 1 EACH SL BID (Reported) Insulin Glargine (Lantus U100 Insulin Vial) 100 Unit/Ml Vial 30 UNIT SUBQ HS ( Reported) Insulin Human Lispro (HumaLOG U100 Insulin Vial) 100 Unit/Ml Unit 0 SUBQ TID- INSULIN (Reported) Check blood sugars before meals and at bedtime. Use correction factor only before meals. Blood Sugar Lispro Correction: <151, 0 units; 151-175, 1 unit; 176-200, 2 units; 201-225, 3 units; 226-250, 4 units; 251-275, 5 units; 276-300 , 6 units; 301-325, 7 units; 326-350, 8 units; 351-375, 9 units; 376-400, 10 units; >400, 12 units. Linezolid (Zyvox) 600 Mg Tablet 600 MG PO BID Prescribed by: MAHSA PARRY DO Metronidazole (Flagyl) 500 Mg Tablet 500 MG PO Q8 Prescribed by: MAHSA PARRY DO diphenhydrAMINE HCl (Benadryl) 25 Mg Capsule 25 MG PO Q8H Prescribed by: MAHSA PARRY DO As needed Hydroxyzine Pamoate (HydrOXYzine Pamoate) 50 Mg Capsule 50 MG PO QID PRN PRN For Anxiety (Reported) Ranitidine (Ranitidine) 150 Mg Capsule 150 MG PO BID PRN PRN For Indigestion ( Reported) Additional med instructions Please continue to take both the linezolid and Flagyl twice a day until October 25. Please take the entire course of medication and do not save any pills. Followup Plan Discharge Diet: Diabetic Discharge Activity: No restrictions Follow-up Provider: Chiara Powell Follow-up with PCP in: 1 week Provider: [facility] Follow-up in: 1 week (you have an appointment in the wound care clinic on 10/18 at 9:00 in the morning. Please do not miss this appointment.) Time spent Greater than 35 minutes copies to: Chiara Powell Precious L DO Oct 16, 2016 11:21
--- NOTE | 2016-10-16 14:31 | NUR ---
DISCHARGE Patient to be discharged to [facility] once 1 Liter NS completed. NS is being run at 100ml/hr but to IV site discomfort, expect to be finished 1630. Patient denies pain, nausea, and shortness of breath. W/C in and gave dressing instructions to patient today as well as supplies for dressing change. Medications reviewed and new Rx for antibiotics x2 given and explained to patient. Educational handout on abscess given, signs of infection reviewed, follow up in one week with wound care clinic 10/18/16 at 0900.
--- NOTE | 2016-10-16 15:00 | NUR ---
Wound Care Pt seen for wound care and dressing change teaching. Teaching= Demonstration and repeat back. Right and Left deltoid wounds, irrigate with saline by syringe. Swab with sterile Q tip moist with hydrogen peroxide. Wipe surrounding skin with skin barrier wipe. Cover with 2x2 gauze and tape. Irrigate twice daily, patient provide with supplies and copy of this note. F/U at wound Center 10/18/16 at 0900.
--- NOTE | 2016-10-16 16:29 | NUR ---
Social Work Continued Discharge Planning: Order for discharge acknowledged. Patient states plan as home to [address] [place], [place] [address]. Patient states having no available transport home. SW arranged transport via [facility] for forklift picker at 5-5:30pm, [phone]. Patient states she to resides at residence upon discharge. No other anticipated discharge needs at this time. SW to follow. PLAN: Home with transport via [facility]. No other anticipated discharge needs Vonnie PURDY
--- NOTE | 2016-10-16 17:10 | NUR ---
discharge 1 liter ns done infusing. s.l dcd intact. discharge script and instruction reviewed w/pt by son saunders and given to pt. cousin here to transportpt to destination.
== END 2016-10-16 16:49 | disposition home or self-care (01) | DRG 603 ==
LOC: SED 08:11 → EDUNIT# 08:11 → OSC 11:59
PROVIDERS: ADMIT Family Medicine; ATTEND Family Medicine
PROC: 0H9CXZX Drainage of Left Upper Arm Skin, External Approach, Diagnostic (ICD-10-PCS; principal; 2016-10-08)
PROC: 0H9BXZX Drainage of Right Upper Arm Skin, External Approach, Diagnostic (ICD-10-PCS; 2016-10-08)
DX: L02.414 Cutaneous abscess of left upper limb (principal); B95.61 Methicillin susceptible Staphylococcus aureus infection as the cause of diseases classified elsewhere; B18.2 Chronic viral hepatitis C; E10.9 Type 1 diabetes mellitus without complications; L27.0 Generalized skin eruption due to drugs and medicaments taken internally; Z86.711 Personal history of pulmonary embolism; Z79.4 Long term (current) use of insulin; Z79.01 Long term (current) use of anticoagulants; L02.413 Cutaneous abscess of right upper limb; Z16.19 Resistance to other specified beta lactam antibiotics; Z86.14 Personal history of Methicillin resistant Staphylococcus aureus infection; T36.8X5A Adverse effect of other systemic antibiotics, initial encounter; Y92.239 Unspecified place in hospital as the place of occurrence of the external cause; Z59.0 Homelessness

== ENCOUNTER 2016-11-27 11:23 | Emergency (ER) | payer OTHER ==
[~2016-11-27] VITALS: Ht 162.6 cm; Wt 87.3 kg
[~2016-11-27 11:23] MED LIST changes: +BUPR1FIL3 SL; +DIPH25CA6 PO; -DOXY100T2 PO; -HYDR25CA PO; +HYDR50CA3 PO; +LINE600T2 PO; -LOV100 SUBQ; +METR500T PO; -OXYC5TAB72 PO; -WARF5TAB PO
[2016-11-27 11:30] VITALS: BP 142/86; PULSE 61; RESP 20; O2SAT 100
[2016-11-27] MEDS ORDERED: Ondansetron 8 mg ODT Tablet PO ONE (14:20)
--- NOTE | 2016-11-27 14:31 | ED.REPORT ---
HPI-General Illness Date of Service Nov 27, 2016 ED Provider: Denzel Guillory MD History of Present Illness: Mary Jo Pierce is a 30 year old woman with a PMH of DM1, Hep C, Heroin abuse most recently used IM in the hip 2 weeks ago, and homelessness who presents with a 2 day history of right shoulder swelling and developing abscess. She states that this same site was infected 2 weeks ago and was drained at that time to great relief, she was put on doxycycline, but then it began to come back 2 days ago. She reports punturing it with her insulin needle last evening and draining out 7 syringes full of purulent fluid. She further states that she has been out of insulin for the past week, and has not measured her BG in that interim. She reports some associated chills, but is not sure whether this was due to the illness or from living in her van during incliment weather. Nursing Notes Stated Complaint: abscess lt shoulder Chief Complaint: Extremity Trauma Nursing Notes Reviewed: Yes Allergies: Coded Allergies: Penicillins (Verified Allergy, Severe, HIVES, 10/08/16) Sulfa (Sulfonamide Antibiotics) (Verified Allergy, Severe, Hives, 10/08/16) vancomycin (Verified Allergy, Severe, Red man's syndrome, 10/08/16) acetaminophen (Verified Allergy, Mild, 11/27/16) hydrocodone (Verified Allergy, Mild, 11/27/16) oxycodone (Verified Allergy, Mild, 11/27/16) Scheduled Buprenorphine HCl/Naloxone HCl (Suboxone 8 mg-2 mg Sl Film) 1 Each Film 1 EACH SL BID Ciprofloxacin (Ciprofloxacin) 750 Mg Tablet 750 MG PO BID Ciprofloxacin (Ciprofloxacin) 750 Mg Tablet 750 MG PO BID Insulin Glargine (Lantus U100 Insulin Vial) 100 Unit/Ml Vial 30 UNIT SUBQ HS Insulin Human Lispro (HumaLOG U100 Insulin Vial) 100 Unit/Ml Unit 0 SUBQ TID- INSULIN Check blood sugars before meals and at bedtime. Use correction factor only before meals. Blood Sugar Lispro Correction: <151, 0 units; 151-175, 1 unit; 176-200, 2 units; 201-225, 3 units; 226-250, 4 units; 251-275, 5 units; 276-300 , 6 units; 301-325, 7 units; 326-350, 8 units; 351-375, 9 units; 376-400, 10 units; >400, 12 units. diphenhydrAMINE HCl (Benadryl) 25 Mg Capsule 25 MG PO Q8H Scheduled PRN Hydroxyzine Pamoate (HydrOXYzine Pamoate) 50 Mg Capsule 50 MG PO QID PRN PRN For Anxiety Ranitidine (Ranitidine) 150 Mg Capsule 150 MG PO BID PRN PRN For Indigestion General Time Seen by MD: 13:20 Chief Complaint Other (Left arm abscess) Hx Obtained From: Patient Arrived By: Walk-in Sudden in Onset?: No Onset Occurred: 2 days ago Context of Onset: Ran out of medication (Insulin) Symptom Duration: Since onset Location: : Arm left Quality: Painful, Sharp Radiation: : Does not radiate Severity: Current: Moderate Severity: Maximum: Severe Recent Healthcare: Recent doctor visit Similar Sx Previous: Yes Past Medical History Past Medical History Type one diabetic Hepatitis C Bipolar Endocarditis Bilateral PEs MRSA Reports: Asthma, Diabetes mellitus Past Surgical History Knee Chest tube Abscess drainage Left arm Left hip Smoking History Former Smoker Social History Alcohol Use: Denies alcohol use Drug Use: In recovery, IV drugs, THC Other Social History: Local resident Ambulatory Status Independent Review of Systems Full Review of Systems Constitutional: Reports: Chills, Fatigue, Denies: Fever, Lethargy, Malaise, Recent wt loss, Weakness - generalized Eyes: Denies: Blurred bilateral, Blurred left, Blurred right, Diplopia, Discharge bilateral, Discharge left, Discharge right, Eye pain bilateral, Eye pain left, Eye pain right, Photophobia, Redness bilateral, Redness left, Redness right, Visual loss bilateral, Visual loss left, Visual loss right Ears / Nose / Throat: Denies: Ear drainage bilateral, Ear drainage left, Ear drainage right, Ear ringing bilateral, Ear ringing left, Ear ringing right, Earache bilateral, Earache left, Earache right, Hearing loss bilateral, Hearing loss left, Hearing loss right, Mouth pain, Nasal congestion, Nose bleeding, Sinus problem, Sore throat, Throat pain, Throat swelling, Tongue pain, Tongue swelling, Toothache, Voice change Respiratory: Denies: Dyspnea on exertion, Hemoptysis, Non-productive cough, Parox nocturnal dyspnea, Pleuritic pain, Prod cough, bloody, Prod cough, brown, Prod cough, clear, Prod cough, green, Prod cough, white, Prod cough, yellow, Shortness of breath, Wheezing Cardiovascular: Denies: Chest pain, Dyspnea on exertion, Edema, Orthopnea, Palpitations, Parox nocturnal dyspnea, Syncope GI: Denies: Abdominal pain, Anorexia, Belching, Bloody/tarry stool, Constipation, Diarrhea, Dysphagia, Hematemesis, Hematochezia, Melena, Mucousy stool, Nausea, Rectal pain, Vomiting Female: Denies: Dysuria, Flank pain, Hematuria, Incontinence, Nocturia, Pelvic pain, , Urinary frequency, Urinary urgency, Urination decreased, Urination increased, Vaginal bleeding - abnl, Vaginal discharge Musculoskeletal: Reports: Extremity pain, Extremity swelling, Joint pain, Denies: Back pain, Joint swelling, Lumbar pain, Myalgia, Neck pain, Thoracic pain Hematologic: Denies Adenopathy, Denies Bleeding, Denies Bruising, Denies Petechiae Endocrine: Denies: Cold intolerance, Heat intolerance, Polydipsia, Polyphagia, Polyuria, Weight gain, Weight loss Skin: Reports Rash, Denies Bruising, Denies Diaphoresis, Denies Itching, Denies Swelling, Denies Unexplained bruises Allergy / Immune: Denies: Allergic reaction, Anaphylaxis, Hives, Itching, Rhinorrhea, Sneezing Neurologic: Denies: Abnormal movement, Bladder dysfunction, Bowel dysfunction, Change LOC, Confusion, Dizziness, Focal weakness, Headache, Lightheaded, Numbness, Problem walking, Seizure, Shaking, Slurred speech, Spinning sensation , Syncope, Unable to speak, Vision change, Weakness Psychiatric: Denies: Agitation, Anxiety, Change mental status, Confusion, Delusional, Depression, Hallucinations, auditory, Hallucinations, visual, Homicidal ideation, Hostile, Insomnia, Stress, Suicidal ideation, Unable to control self Physical Exam Gen: A/O x3 pleasant cooperative woman in mild acute distress secondary to arm pain Neck: Supple, non-tender, no thyromegally HEENT: PERRL, EOMI, mucous membranes dry CV: RRR no murmurs rubs or gallops Resp: Lungs CTA BL, no wheezing rales or rhonchi Extr: Firm subcutaneous abscess overlying left deltoid, two discrete inflamed pockets may represent extension of a singular cavity Neuro: CN 2-12 grossly intact, no focal neurologic deficit Vital Signs Vital Signs Date Time Temp Pulse Resp B/P Pulse Ox O2 Delivery O2 Flow Rate FiO2 3/6/17 16:47 36.9 66 18 136/82 100 Room Air 11/27/16 11:30 37.2 61 20 142/86 100 Room Air Initial VS: Reviewed Interpretation & Diagnostics Interpretation & Diagnostics: Patient is a DM1 opioid abuser who ran out of her insulin 1 week ago with a shallow subcutaneous abscess on her left shoulder. She has not been measuring her BG since running out of insulin but typically uses 40-60 U daily which poorly controlles BG. She states that she has not used Heroin in about 2 weeks, and typically injects IM in her hip. Lab Results Interpretation Result Diagram: 11/27/16 1450 11/27/16 1450 Test 11/27/16 14:50 White Blood Count 7.7th/mm3 (3.8-10.1) Red Blood Count 5.05mil/mm3 (3.90-5.20) Hemoglobin 13.7g/dL (12.0-15.6) Hematocrit 40.1% (35.0-46.0) Mean Corpuscular Volume 79.4fL (81-100) Mean Corpuscular Hemoglobin 27.1pg (27.0-35.0) Mean Corpuscular Hemoglobin Concent 34.2% (32.0-37.0) Red Cell Distribution Width 13.8% (12.3-15.4) Platelet Count 187bil/L (150-400) Neutrophils (%) (Auto) 62.3% (40-74) Lymphocytes (%) (Auto) 27.8% (14-46) Monocytes (%) (Auto) 7.8% (4-12) Eosinophils (%) (Auto) 0% (0-5) Basophils (%) (Auto) 1.8% (0-3) Sodium Level 130mEq/L (134-144) Potassium Level 3.8mEq/L (3.5-5.2) Chloride Level 93mEq/L (97-108) Carbon Dioxide Level 23mmol/L (18-29) Blood Urea Nitrogen 6mg/dL (6-20) Creatinine 0.38mg/dL (0.57-1.00) Estimat Glomerular Filtration Rate 283mL/min (>59) Glucose Level 319mg/dL (60-99) Calcium Level 9.0mg/dL (8.5-10.1) Total Bilirubin 0.6mg/dL (0.0-1.2) Aspartate Amino Transf (AST/SGOT) 61U/L (0-50) Alanine Aminotransferase (ALT/SGPT) 72U/L (0-32) Alkaline Phosphatase 63U/L (25-150) Total Protein 8.2g/dL (6.4-8.4) Albumin 3.9g/dL (3.4-5.0) Hold Escobar Top Tube Received (Received) Procedures Procedure Notes: Patient underwent I&D of left shoulder abscess. The patient's arm was cleaned and draped in the usual fashion, then 0.5% lidocaine with epinephrine was utilized as local anesthetic. A 3 cm incision was then made through a previous scar from prior I&D. The wound immediately began expressing copious brownish purulent material which was continually expressed. The cavity was large and explored with blunt dissection and irrigation. The cavity was then packed and dressed with gauze. Incision & Drainage Abscess Procedure Performed by: ED resident Consent / Setup / Site Prep: Informed consent provided Location of Abscess: Left Shoulder Skin Preparation Agent: Hibiclens - Chlorhexidine Local Anesthesia: Lidocaine w epi 1% Incised Abscess with Scalpel: #11 Pus Drained: Large, Purulent discharge Irrigation: Copious, 200 cc Post-Procedure / Complications: Packing placed, Dressing applied Re-Eval/Medical Decision Med Decision/Clinical Course The patient presented with a large superficial abscess with a pus pocket documented by bedside ultrasound. This was then treated with incision and drainage, which produced a copious amount of purulent fluid, some of which was collected for culture and sensitivity. The patient felt immediate relief following the procedure, and was feeling much improved upon DC. The patient was discharged with a 7 day script for Clindamycin. Counseled Regarding: Need for follow-up, When/why to return to ED Discharge & Departure Shift Change Sign-Out Discussed Complaint(s): Yes Laboratory Evaluation: Back, reviewed by me Imaging Studies: Done, wet read by me Procedures: Done, results known Response to Therapy: Improved Primary Impression: Abscess of left shoulder Disposition: Home Discharge Condition All VS Reviewed: Yes Condition: Stable Patient Instructions: Acute Wound Care (ED) Additional Instructions: Please keep the wound clean and dry. Change packing daily, then re-apply gauze with tape, make sure that the bandage is not entirely air tight as the wound needs to breathe. Continue to take Seboxone, and or over the counter ibuprofen for pain. Be sure to stay hydrated and keep your blood sugar under control for the next few weeks. Contact your doctor immediately if you are not able to get more insulin. If you have fevers, chills, or intolerable pain in the left arm please be evaluated by your PCP, or the urgent care or ER. Have the wound evaluated in 1 weeks time, either by your PCP, or urgent care or ER. You were given 20 mg of Oxycodone to control the pain of your procedure, this will cause your urinalysis to test positive for Oxycodone for 2-4 weeks. Referrals: Chiara Powell (PCP) copies to: Chiara Powell David E DO Nov 27, 2016 14:31 Denzel Guillory MD Nov 27, 2016 18:15
[2016-11-27] MEDS ORDERED: 0.9% Sodium Chloride 1,000 ML IV ONE (14:40)
[2016-11-27 14:58] LABS: EOSINOPHILS % (AUTO) 0 % (0-5)
[2016-11-27 15:03] LABS: BASOPHILS % (AUTO) 1.8 % (0-3); MONOCYTES % (AUTO) 7.8 % (4-12); Mean Corpuscular Hemoglobin 27.1 pg (27.0-35.0); Mean Corpuscular Volume 79.4 fL (81-100); NEUTROPHILS % (AUTO) 62.3 % (40-74); Platelet Count 187 bil/L (150-400)
[2016-11-27 16:47] VITALS: BP 136/82; PULSE 66; RESP 18; O2SAT 100
[2016-11-27] MEDS ORDERED: CIPR750T4 PO ×2 (17:15→17:51)
== END 2016-11-27 17:45 | disposition home or self-care (01) ==
LOC: SED 11:23
DX: L02.414 Cutaneous abscess of left upper limb (principal); E10.9 Type 1 diabetes mellitus without complications; J45.909 Unspecified asthma, uncomplicated; B19.20 Unspecified viral hepatitis C without hepatic coma; F11.21 Opioid dependence, in remission; F17.200 Nicotine dependence, unspecified, uncomplicated; Z98.890 Other specified postprocedural states; Z86.14 Personal history of Methicillin resistant Staphylococcus aureus infection; Z86.711 Personal history of pulmonary embolism; Z87.891 Personal history of nicotine dependence; Z79.4 Long term (current) use of insulin; Z88.0 Allergy status to penicillin; Z88.2 Allergy status to sulfonamides; Z88.1 Allergy status to other antibiotic agents; Z88.6 Allergy status to analgesic agent; Z88.5 Allergy status to narcotic agent
CPT/HCPCS: 10061; 36415; 80053; 85025; 96360; 99284; J7030

== ENCOUNTER 2017-03-23 07:20 | Inpatient (IN) | payer OTHER ==
[~2017-03-23] VITALS: Ht 165.1 cm; Wt 89.6 kg
[~2017-03-23 07:20] MED LIST changes: +CIPR750T4 PO; -LINE600T2 PO; -METR500T PO
[2017-03-23 07:24] VITALS: BP 145/95; PULSE 74; RESP 10; O2SAT 100
--- NOTE | 2017-03-23 07:52 | ED.REPORT ---
HPI-Eye Problem Date of Service Mar 23, 2017 ED Provider: Ryan Dhaliwal MD The patient is a 31 year old female with history of MRSA, diabetes mellitus, hepatitis C, endocarditis, and bilateral PEs, who presents to the emergency department complaining of worsening right eye pain, redness, and swelling that began 1 week ago. The swelling started with a small sore just below her right eyebrow that she popped. She describes the pain as a "pressure" behind her eye. Her pain is worse with eye movement. She also complains of nausea and vomiting, and has been taking Zofran with some relief. She was seen at urgent care 2 days ago and had an incision and drainage of the abscess above her right eye. She was already taking Clindamycin 300 mg TID for a abscess on her arm. This prescription was extended for an additional week. She denies visual changes, fever, chills, lightheadedness or syncope. 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 She last used heroin 2 weeks ago. Nursing Notes Stated Complaint: RIGHT EYE SWOLLEN Chief Complaint: Eye Nursing Notes Reviewed: Yes Allergies: Coded Allergies: Penicillins (Verified Allergy, Severe, HIVES, 10/08/16) Sulfa (Sulfonamide Antibiotics) (Verified Allergy, Severe, Hives, 10/08/16) vancomycin (Verified Allergy, Severe, Red man's syndrome, 10/08/16) acetaminophen (Verified Allergy, Mild, 11/27/16) hydrocodone (Verified Allergy, Mild, 11/27/16) oxycodone (Verified Allergy, Mild, 11/27/16) Scheduled Buprenorphine HCl/Naloxone HCl (Suboxone 8 mg-2 mg Sl Film) 1 Each Film 1 EACH SL BID Bupropion (Bupropion) 100 Mg Tablet 300 MG PO MORNING Cetirizine HCl (Zyrtec) 10 Mg Capsule 10 MG PO MORNING Insulin Glargine (Lantus U100 Insulin Vial) 100 Unit/Ml Vial 30 UNIT SUBQ MORNING Insulin Human Lispro (HumaLOG U100 Insulin Vial) 100 Unit/Ml Unit 0 SUBQ TID- INSULIN Check blood sugars before meals and at bedtime. Use correction factor only before meals. Blood Sugar Lispro Correction: <151, 0 units; 151-175, 1 unit; 176-200, 2 units; 201-225, 3 units; 226-250, 4 units; 251-275, 5 units; 276-300 , 6 units; 301-325, 7 units; 326-350, 8 units; 351-375, 9 units; 376-400, 10 units; >400, 12 units. Lamotrigine (Lamictal) 200 Mg Tablet 200 MG PO HS Topiramate (Topamax) 50 Mg Tablet 150 MG PO HS Scheduled PRN Hydroxyzine Pamoate (HydrOXYzine Pamoate) 50 Mg Capsule 50 MG PO QID PRN PRN For Anxiety Ranitidine (Ranitidine) 150 Mg Capsule 150 MG PO BID PRN PRN For Indigestion General Time Seen by MD: 07:45 Chief Complaint Right eye affected, Pain, Redness, Swelling Hx Obtained From: Patient Arrived By: Walk-in Sudden in Onset?: Yes Onset Occurred: 1 week ago Symptom Duration: Since onset Progression Since Onset: Constant, Gradually worsening Location: : Eye right Quality: Painful, Pressure Severity: Current: Moderate Severity: Maximum: Moderate Recent Healthcare: No recent hospitalization, Recent doctor visit Similar Sx Previous: Yes Past Medical History Past Medical History Type one diabetic Hepatitis C Bipolar Endocarditis Bilateral PEs MRSA Reports: Asthma Past Surgical History Knee Chest tube Abscess drainage Left arm Left hip Smoking History Former Smoker Social History She last used heroin 2 weeks ago. Alcohol Use: Denies alcohol use Drug Use: In recovery, IV drugs, THC Other Social History: Local resident Ambulatory Status Independent Review of Systems Constitutional: Denies: Chills, Fever Eyes: Reports: Eye pain right (and swelling), Redness right, Denies: Visual loss left Neurologic: Denies: Lightheaded, Syncope Complete sys rev & neg: except as marked. GI: Reports: Nausea, Vomiting Physical Exam Initial Vital Signs Vital Signs (First) Date Time Temp Pulse Resp B/P Pulse Ox O2 Delivery O2 Flow Rate FiO2 03/23/17 07:24 36.7 74 10 145/95 100 Room Air Initial VS: Reviewed ENT: Mucous membranes moist, Conjunctiva normal, No scleral icterus Neck: Supple, Non-tender, Full range of motion Respiratory: Breath sounds normal, Clear to auscultation, No respiratory distress Cardiovascular: Regular rate & rhythm, Heart sounds normal, Intact distal pulses Abdomen / GI: Soft, Non-tender, No guarding, No rebound, No distention Extremities: Vascular intact, Neuro intact, No swelling, No tenderness Skin: Warm, Dry, No cyanosis Neurologic: Alert, Oriented, Nonfocal Psychiatric: Mood/affect normal, Behavior normal, Normal thought content Head / Eyes: Normocephalic Diffuse erythema to the skin surrounding the right eye. Right forehead has no fluctuance or evidence of abscess. EOMI. Pain with extraocular movements. Right eye if with chronic complete visual loss. General/Constitutional: Awake, Alert, Cooperative Interpretation & Diagnostics PROCEDURE: CT ORBITS WITH CONTRAST IMPRESSION: Right periorbital cellulitis. No CT evidence of orbital cellulitis. Dictated by: Dayne Haq M.D. on 03/23/2017 at 9:58 Lab Results Interpretation Result Diagram: 03/23/17 0820 03/23/17 0820 Test 03/23/17 08:20 03/23/17 09:14 White Blood Count 11.4th/mm3 (3.8-10.1) Red Blood Count 4.89mil/mm3 (3.90-5.20) Hemoglobin 13.7g/dL (12.0-15.6) Hematocrit 40.7% (35.0-46.0) Mean Corpuscular Volume 83.2fL (81-100) Mean Corpuscular Hemoglobin 28.0pg (27.0-35.0) Mean Corpuscular Hemoglobin Concent 33.7% (32.0-37.0) Red Cell Distribution Width 13.8% (12.3-15.4) Platelet Count 241bil/L (150-400) Neutrophils (%) (Auto) 68.6% (40-74) Lymphocytes (%) (Auto) 22.6% (14-46) Monocytes (%) (Auto) 8.2% (4-12) Eosinophils (%) (Auto) 0.2% (0-5) Basophils (%) (Auto) 0% (0-3) Sodium Level 136mEq/L (134-144) Potassium Level 3.8mEq/L (3.5-5.2) Chloride Level 99mEq/L (97-108) Carbon Dioxide Level 25mmol/L (18-29) Blood Urea Nitrogen 22mg/dL (6-20) Creatinine 0.63mg/dL (0.57-1.00) Estimat Glomerular Filtration Rate 157mL/min (>59) Glucose Level 142mg/dL (60-99) Calcium Level 9.0mg/dL (8.5-10.1) Magnesium Level 1.9mg/dL (1.6-2.6) Total Bilirubin 0.6mg/dL (0.0-1.2) Aspartate Amino Transf (AST/SGOT) 59U/L (0-50) Alanine Aminotransferase (ALT/SGPT) 53U/L (0-32) Alkaline Phosphatase 71U/L (25-150) C-Reactive Protein 1.1mg/dL (0.0-0.5) Total Protein 7.0g/dL (6.4-8.4) Albumin 3.7g/dL (3.4-5.0) Hold Escobar Top Tube Received (Received) Hold Urine Received (Received) Urine Opiates Screen Positive Urine Methadone Screen Negative Urine Barbiturates Screen Negative Urine Amphetamines Screen Negative Urine Benzodiazepines Screen Negative Urine Cocaine Metabolite Screen Negative Urine Cannabinoids Screen Positive Re-Eval/Medical Decision Med Decision/Clinical Course 31-year-old female history of endocarditis, IV drug use , type I diabetes presenting with right preseptal cellulitis. CT orbit no evidence of orbital cellulitis. She has been on oral clindamycin for 1 week for right upper extremity abscess which is now resolved. Her preseptal cellulitis started 2 days ago and is getting worse on oral clindamycin. She will be admitted for IV antibiotics given failure of oral antibiotics. Source of Hx: Old records Re-Evaluation/Progress : Time of Eval: 10:09 Re-Evaluation/Progress Note: Rechecked the patient. Discussed results, diagnosis, and plan for disposition. She understands and agree with plan for admission. All questions were addressed. Consultation : Referral / Consult Name: Dennis Palmer MD Consulted With: Hospitalist Requested Call at: 10:10 Call Returned at: 11:22 Presentation Team Member: Will see patient, Agrees with eval, Agrees with plan, Accepts admit Counseled Regarding: Diagnosis, Lab results, Need for admission Discharge & Departure Primary Impression: Periorbital cellulitis of right eye Disposition: ADMITTED TO HOSPITAL Discharge Condition All VS Reviewed: Yes Condition: Stable Referrals: Chiara Powell (PCP) Scribe Attestation Portions of this note were transcribed by Jaylene Rodriguez. IDr. Dhaliwal personally performed the history, physical exam and medical decision-making; I reviewed and confirmed the accuracy of the information in the transcribed note. Signed by: Sandi Torres, 03/23/2017 at 1130. copies to: Chiara Powell Ben M MD Mar 23, 2017 07:52 Jaylene Rodriguez Mar 23, 2017 08:03
[2017-03-23] MEDS ORDERED: Ondansetron 2 mg/mL 2 mL Inj IVPUSH PRN ×2 (08:05→11:35)
[2017-03-23 08:37] LABS: BASOPHILS % (AUTO) 0 % (0-3); EOSINOPHILS % (AUTO) 0.2 % (0-5); MONOCYTES % (AUTO) 8.2 % (4-12); Mean Corpuscular Volume 83.2 fL (81-100); NEUTROPHILS % (AUTO) 68.6 % (40-74); Platelet Count 241 bil/L (150-400)
[2017-03-23] MEDS ORDERED: Clindamycin Inj 300 MG in Dextrose 5% 50 ML IV ONE (08:40)
[2017-03-23] MEDS ORDERED: Clindamycin Inj 900 MG in IV Premix 1 EACH IV SCH (09:08)
--- NOTE | 2017-03-23 10:06 | DRSVH ---
PROCEDURE: CT ORBITS WITH CONTRAST ([id number]) INDICATIONS: R orbital cellulitis vs preseptal cellulitis TECHNIQUE: After the administration of intravenous contrast, 3.0 mm axial images acquired through the orbits, wi th coronal reformatting. For radiation dose reduction, the following was used: automated exposure c ontrol. COMPARISON: [facility], CT, CT SHOULDER LT W CON, 07/16/2016, 0:24. FINDINGS: Image quality: Excellent. Orbits: Globes are symmetrical. The optic nerves are normal in size and enhancement. No retrobulba r masses or fat abnormalities. The extra-ocular muscles are normal and symmetrical in appearance. L acrimal glands are normal. Optic chiasm is normal. There is edema and abnormal enhancement in the ri ght periorbital soft tissues greatest medially. No involvement of the intra-or extraconal fat.. Intracranial: Incidentally visualized brain parenchyma is within normal limits. Bones and sinuses: Visualized calvarium and facial bones appear intact. Visualized sinuses and mast oids are clear. IMPRESSION: Right periorbital cellulitis. No CT evidence of orbital cellulitis. Dictated by: Dayne Haq M.D. on 03/23/2017 at 9:58 Approved by: Dayne Haq M.D. on 03/23/2017 at 10:04
[2017-03-23 10:36] VITALS: BP 129/74; PULSE 73; RESP 17; O2SAT 98
[2017-03-23] MEDS ORDERED: Polyethylene Glycol (PEG) 17 Gm Powder PO PRN (11:30)
[2017-03-23] MEDS ORDERED: Alum-Mag Hydrox-Simeth 30 mL Suspension PO PRN ×2 (11:30→11:35)
[2017-03-23 11:57] VITALS: BP 113/73; PULSE 69; RESP 19; O2SAT 99
[2017-03-23] MEDS ORDERED: Clindamycin Inj 900 MG in IV Premix 1 EACH IV ONE (12:13)
[2017-03-23 12:25] LABS: APPEARANCE,URINE CLEAR (CLEAR,HAZY); COLOR,URINE YELLOW (YELLOW); PH,URINE 7.5 (5.0-8.0)
[2017-03-23 12:26] LABS: OCCULT BLOOD,URINE NEGATIVE (NEGATIVE); UROBILINOGEN,URINE NORMAL (NORMAL)
[2017-03-23] MEDS ORDERED: DAPTOmycin Inj 500 MG in 0.9% Sodium Chloride 50 ML IV SCH (13:30)
--- NOTE | 2017-03-23 14:04 | NUR ---
Admit Patient was admitted at 1145 into room 1008. Able to transfer from wheelchair to bed independently. Right eye red and swollen shut. Denies pain. Contact precautions in place for history of MRSA. IV saline locked. Sharps container removed from room due to patient's drug abuse history. Oriented to room, call light within reach. Warm compresses applied and educated patient on using them once an hour for 10 minutes. Addendum: 03/23/17 at 1515 by RACHELLE PAUL RN Med Rec completed and culture results faxed from [facility] from patient's visit 03/22/17. MD yan. Addendum: 03/23/17 at 1855 by RACHELLE PAUL RN Due to patient's drug use history- sharps container removed from room, patient belongings are locked in closet, and door is open. Patient is pretty drowsy and states she hasn't gotten much sleep due to the discomfort with her eye. CPO2 in place to monitor oxygen and heart rate.
[2017-03-23] MEDS ORDERED: 0.9% Sodium Chloride 250 ML ONE (14:14)
[2017-03-23] MEDS ORDERED: INSU100V7 SUBQ (14:42)
[2017-03-23] MEDS ORDERED: LAMO200T PO (14:48)
[2017-03-23] MEDS ORDERED: BUPR100T15 PO (14:48)
[2017-03-23] MEDS ORDERED: TOPI50TA32 PO (14:48)
[2017-03-23] MEDS ORDERED: CETI10CA PO (14:48)
--- NOTE | 2017-03-23 16:38 | DRSVH ---
PROCEDURE: X-RAY CHEST, TWO VIEWS ([id number]) INDICATIONS: Possible Pneumonia TECHNIQUE: 2 views of the chest were acquired. COMPARISON: [facility], CR, XR CHEST 2VW, 07/30/2015, 18:33. [facility], CR , XR CHEST 2VW, 10/08/2016, 9:36. FINDINGS: Surgical changes and devices: None. Lungs and pleura: No pleural effusions or pneumothorax. Lungs are clear, with mild interstitial pro minence involving the lung bases not significant changed and there is mild blunting of the costophren ic angles also unchanged likely pleural scarring.. Mediastinum: Mediastinal contours are normal. Heart size is normal. Bones and chest wall: No suspicious bony abnormalities. Soft tissues appear unremarkable. IMPRESSION: No definite acute cardiopulmonary process. Dictated by: Chas PABLO Interpreted: Dayne Haq MD on 03/23/2017 at 14:01 Approved by: Dayne Haq M.D. on 03/23/2017 at 16:36
[2017-03-23 17:33] VITALS: BP 124/73; PULSE 73; RESP 20; O2SAT 100
[2017-03-23] MEDS: Ondansetron 2 mg/mL 2 mL Inj IVPUSH PRN (17:36)
[2017-03-23] MEDS ORDERED: Dextrose 10% 250 ML IV ONE (18:40)
[2017-03-23] MEDS ORDERED: Dextrose 10% 250 ML IV PRN (19:20)
--- NOTE | 2017-03-23 19:25 | CONS ---
[address] [address] CONSULTATION REPORT PATIENT: TANNER SYED : 1985 MR#: [id number] ADMIT: 03/23/2017 JOB ID: [id number] DATE OF SERVICE: 03/23/2017 INFECTIOUS DISEASE CONSULTATION: REASON FOR CONSULTATION: Right periorbital cellulitis. HISTORY OF THE PRESENT ILLNESS: The patient is a 31-year-old woman well known to me from multiple prior admissions relating to infectious complications of drug use. I last saw her back in September of this year when she had an abscess in both shoulders due to Staph aureus. That was unusual in that the patient had been on Suboxone for quite a while and adamantly denied having recently injected into her deltoid area. 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 This led to numerous infections but when we saw her in September it seemed as if she had not been using drugs and so the bilateral appearance of this infection was quite surprising. At that time cultures of the shoulder yielded Staph aureus as well as prevotella and the Staph aureus was MSSA. The patient was treated and resolved that infection. Since that time she says she has been more less free of drug injection but she did have one little relapse about a month ago where she injected drugs into her left deltoid. This resulted in an abscess which was incised and drained at [facility] and she was given oral clindamycin for what she was told was a probable MRSA infection. She reports that the left shoulder deltoid abscess has improved but even as that was improving she developed swelling of the right eye which rapidly progressed over several days prior to this morning's admission. She reports that there was a "zit" just above her right eye and she popped this and this seemed to start off a cascade of events which have eventually swollen shut the right eye. Recall that this patient had septic emboli 10 years ago from a MRSA endocarditis and lost vision in her right eye, so she said the absence of vision in the right eye due this closure from cellulitis is really not a big problem for her, but it is becoming quite painful. She was contacted yesterday by telephone from someone in the [facility]gent [facility] who told her that the MRSA isolate is actually resistant to clindamycin, but I do not have written confirmation of that yet. In addition to her right eye swollen shut over the last few days while she was receiving clindamycin, she has noted some nausea and some vomiting. She denies any significant fevers or chills, though she did have some night sweats the other day. She has no sore throat, no cough or shortness of breath, and no chest pain. She noted to the ED doctor she has nausea and vomiting, though when speaking to her this afternoon, just a few hours later, the patient does not seem to consider this quite the problem that it was before. PAST MEDICAL HISTORY: 1. MRSA endocarditis with septic emboli in 2008. The patient states that this caused her the loss of central vision in her right eye. 2. 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 Most of these have been MSSA. 3. History of hep C genotype 1a, not treated. 4. Type 1 diabetes mellitus. 5. Bipolar disorder. 6. History of septic right knee. SOCIAL HISTORY: The patient quit smoking over the last couple of months, and she was commended for that. She does not currently and has not consumed alcohol. She says she is compliant with her Suboxone and has had only rare relapses of injecting into her shoulders and now in retrospect I wonder if her September admission for bilateral deltoid MSSA abscesses was actually due to relapse. FAMILY HISTORY: Negative for TB in first- and second-degree relatives. REVIEW OF SYSTEMS: At this point the patient has no significant headache. She has had no confusion. No problems with the left eye. No sore throat. No cough, shortness of breath, or chest pain. Right now she has no nausea or vomiting, though she did in the past 24 hours. No diarrhea at any time. No dysuria, urgency, frequency. No swelling of the joints. Her left deltoid where she had the I and D done a couple of weeks ago now at [facility] is better. The remainder of the review of systems is negative. PHYSICAL EXAMINATION: Reveals a comfortable young woman lying in bed. She is in no acute distress. Current temp is 36.8, pulse 69, respiratory rate 19, blood pressure 113/73. She is saturating 99% on room air. She is alert, conversational. No significant issue. The periorbital area around the right eye is swollen shut. The entire area is erythematous, warm, and tender. With minimal effort I can open her right eye, though, and I can see that the patient has extraocular movements which are intact bilaterally. I cannot test the vision in the right eye because she lost most of that nine years ago with her endocarditis episode. There is no purulence. The lower structures of the face are not involved on the right side, nor is there any involvement on the left side. The patient's nose is normal. Oral cavity without thrush or hairy leukoplakia. Neck supple. No adenopathy. Lungs are clear. Cardiac tones are regular rate and rhythm. I do not note any significant murmur today. The abdomen is slightly obese, soft and nontender, without hepatosplenomegaly. There is no ascites. There is no suprapubic tenderness. She does not have a Garcia catheter. There is no rash except around her right eye and the extremities are specifically looking pretty clear and uninfected. The patient has good pulses in her feet. She has no synovitis. The left deltoid has about a 2 cm very shallow incision which seems to be healing and there is no tenderness or purulence around it, nor is there any restriction of motion of the left arm. The patient's neurologic exam is benign. LABORATORIES: Include white blood count 11,400, normal diff. Creatinine is 0.63. AST and ALT mildly elevated in the 50s. CRP only 1.1, so not too bad. Urinalysis without white cells. Review of prior cultures shows that all the recent ones have been MSSA, and on occasion there have been anaerobes. These isolates are from her arm. In terms of the isolate from this time, we do have the culture from Urgent Care, which I was able to find in the chart. It states that on March 21, the culture was done, which grew MSSA and this is not a MRSA as was erroneously reported. It is indeed, however, clindamycin resistant which explains what she was not getting better. Note that during her last admission the patient was able to tolerate cephalosporins. IMAGING: The imaging on this admission includes a CT of the orbits that showed right periorbital cellulitis. No CT evidence of orbital cellulitis or abscess. IMPRESSION: This patient has a rather severe MSSA right periorbital infection. Dr. Palmer and I had understood that this was a MRSA infection, but in fact it is MSSA. She has received a dose of daptomycin, which would of course be fine, but we do not actually have susceptibilities to that and I think it makes more sense to proceed with high-dose cefazolin. It is likely she will improve fairly quickly I think over the next few days and we could probably send her out on an oral cephalosporin or penicillin type drug, though doxycycline and Bactrim would also be options. RECOMMENDATIONS: 1. Will go ahead and stop the daptomycin. 2. Will start her on Ancef at 2 g q.8 h. 3. I would anticipate significant improvement over the next two or three days and probably discharge in that time frame. Thank you very much.
[2017-03-23] MEDS: lamoTRIgine 100 mg Tablet PO SCH (20:49)
[2017-03-23] MEDS: Buprenorphine 2 mg SL Tablet SL SCH (20:58)
[2017-03-23 21:14] VITALS: BP 136/89; PULSE 67; RESP 18; O2SAT 100
[2017-03-23] MEDS: Insulin Human REGular 300 Unit/3 mL Inj SUBQ SCH (21:14)
--- NOTE | 2017-03-23 21:45 | PCM.HPMED ---
Subjective Date of Service Mar 23, 2017 Primary Provider: Admitting Physician: Dennis Palmer MD Primary Care Physician: Chiara Powell Attending Physician: Dennis Palmer MD Admit Status: From the Emergency Department, Admit to [place] Team Chief Complaint: Swelling of the right eye History of Present Illness: Patient is a 31-year-old white female former intravenous drug user, who claims she is no longer using heroin and is on Suboxone,. Who "popped a set" on her right eyebrow a few days ago. The "zit" came back and she popped it again. It became more and more swollen. Then when she tried to pick at it with tweezers at not more and more swollen. She states she was started on clindamycin for an abscess on her left arm and thought it would get better. However the right eye swelling continued to get worse and worse she described the pain as a pressure behind her eye which worsened with eye movements. She went to an urgent care and they did incision and drainage of the abscess above her right eye. There were able to obtain some pus and sent it for culture. Her right eye became increasingly swollen and was almost swollen shut. The patient came to the [facility] emergency room where she was evaluated by Dr. Ryan Braswell. Dr. Braswell ordered a CT scan which showed a right periorbital cellulitis with no CT evidence of orbital cellulitis. The patient was given 1 dose of IV clindamycin in the emergency room.The patient was therefore admitted to the hospitalist service for further evaluation and treatment. Review of Systems: General: Patient has had no constitutional symptoms of weight loss, fever, chills or diaphoresis. HEENT: Patient has a headache, patient has no diplopia, patient has no changes in vision. 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 She still has peripheral vision which is intact my exam in the right eye but no central vision. Patient has no problems with their ears, nose or throat. Patient has no known dental problems. Patient has no pharyngitis or history of thrush. Neck: Patient has no stiffness in the neck. Patient has no lymphadenopathy. Patient has no other problems with their neck. Pulmonary: Patient has no shortness of breath, no cough, no expectoration of sputum. Patient has no pleurisy. Patient has no chest pain. Patient has no history of asthma or COPD. Cardiovascular: Patient has no chest pain. Patient has a history of heart murmur and endocarditis secondary to MRSA in 2008. She was treated with 6 weeks of IV antibiotics initially on IV vancomycin and IV Zyvox. Patient has no palpitations. Patient has no history of myocardial infarction. Patient has no history of coronary artery disease. Gastrointestinal: Patient has no history of hepatitis A or B. The patient has a history of Hepatitis C, genotype 1A. Patient has a history of gastroesophageal reflux disease. Patient has no history of peptic ulcer disease. Patient has no history of nausea, vomiting, or diarrhea. Patient has no history of hematemesis, hematochezia, or melena. Patient has no history of colitis. Renal: Patient has no history of kidney disease. No history of kidney stones. Genitourinary: Patient has no history of dysuria, frequency, or incontinence. Patient has no previous history of genitourinary problems. Musculoskeletal: Patient has had innumerable abscesses drained and treated with IV antibiotics patient's issues in the hospital on a regular basis. Neurologic: Patient has no history of stroke, no history of seizure, no history of TIA. Psychiatric: Patient has a history of a bipolar 2 disorder. The remainder of the entire review of systems was reviewed with patient and is as mentioned above otherwise negative. Allergies Coded Allergies: Penicillins (Verified Allergy, Severe, HIVES, 10/08/16) Sulfa (Sulfonamide Antibiotics) (Verified Allergy, Severe, Hives, 10/08/16) vancomycin (Verified Allergy, Severe, Red man's syndrome, 10/08/16) acetaminophen (Verified Allergy, Mild, 11/27/16) hydrocodone (Verified Allergy, Mild, 11/27/16) oxycodone (Verified Allergy, Mild, 11/27/16) Home Medications Scheduled Buprenorphine HCl/Naloxone HCl (Suboxone 8 mg-2 mg Sl Film) 1 Each Film 1 EACH SL BID Bupropion (Bupropion) 100 Mg Tablet 300 MG PO MORNING Cetirizine HCl (Zyrtec) 10 Mg Capsule 10 MG PO MORNING Insulin Glargine (Lantus U100 Insulin Vial) 100 Unit/Ml Vial 30 UNIT SUBQ MORNING Insulin Human Lispro (HumaLOG U100 Insulin Vial) 100 Unit/Ml Unit 0 SUBQ TID- INSULIN Check blood sugars before meals and at bedtime. Use correction factor only before meals. Blood Sugar Lispro Correction: <151, 0 units; 151-175, 1 unit; 176-200, 2 units; 201-225, 3 units; 226-250, 4 units; 251-275, 5 units; 276-300 , 6 units; 301-325, 7 units; 326-350, 8 units; 351-375, 9 units; 376-400, 10 units; >400, 12 units. 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 History of recurrent MRSA infections Asthma Surgical History Knee that had arthroscopic surgery due to septic arthritis the right knee due to a rare form of staph" in 2011 Chest tube Patient has had multiple Abscesses drained Left arm abscess drainage 3, currently under treatment. Left hip incision and drainage. 1 Patient had her wisdom teeth removed Family History The patient's father is 57 years old and healthy. The patient's mother is 57 years old and healthy. The patient's father's sister from palpitations of intravenous drug use The patient has 1 brother and 2 sisters who are relatively healthy. Social History Hx Alcohol Use: No Hx Substance Use: Yes (The patient stated "occasionally when I don't have my suboxone". The patient admits to using heroin intramuscularly.) Hx Tobacco Use: Yes (The patient states that she smoked half pack a day. However, she quit smoking 4 months ago.) Smoking Status: Former Smoker Living Arrangement: with Friends/Roommate Additional Information Patient born in [place] went to high school in [place] and graduated from [employer]. Patient went to [employer] for 3 years and "got into drugs and did not graduate" patient has been to her present for 6 years. She just recently got . He was also into drugs. Her [id number] daughter is with her parents in [place]. Patient is 1 para 1. She drank alcohol as a teenager and stopped after that when she started heroin. Patient has been using heroin for approximately 15 years intravenously and intramuscularly. Patient now lives with a roommate in [place]. She rents space in his mobile home her trailer home. Patient stays off the heroin as long as she is taking her Suboxone. Exam Vital Signs Vital Sign - Last Date Time Temp Pulse Resp B/P Pulse Ox O2 Delivery O2 Flow Rate FiO2 03/23/17 21:14 36.8 67 18 136/89 100 Room Air Exam General: The patient has no fever, chills, diaphoresis. She has no recent weight loss. HEENT: Head is atraumatic and normocephalic. Eyes: The right eyelid is almost closed shut, however the eyeball is visible. There is marked swelling and cellulitis of the right eyebrow area and right eyelid. Pupils are equally round and reactive to light and accommodation. Extraocular muscles are intact. Sclera are white, anicteric. Subconjunctival mucosa is pink. Ears and nose are unremarkable. Oropharynx: There is no mucosal lesions, there is no thrush, there is no pharyngitis. Neck: Is supple, there are no nodes, or masses or tenderness. Chest: Is clear to auscultation and percussion. There are no rales, rhonchi, wheezes or rubs. Heart: Rate, rhythm is regular. There is no murmur, rub or gallop. Abdomen: Good bowel sounds are present. Abdomen is soft, nontender, no organomegaly or masses were appreciated. Extremities: Are symmetrical and well perfused. There is no edema, there is an abscess that is been drained in the left upper lateral arm, in the area of the deltoid muscle Neurologic: There are no focal neurological deficits. Cranial nerves II through XII are intact. There are no sensory or motor deficits. Psychiatric: Patients mood is calm and she shows no sign of agitation. Genital: Deferred Rectal: Deferred Lab and Diagnostics Result Diagram: 03/23/1781903/23/17819 Microbiology Blood cultures are pending Right eyebrow I&D culture apparently is growing MSSA X-Rays, CTs and MRIs PROCEDURE: X-RAY CHEST, TWO VIEWS ([id number]) INDICATIONS: Possible Pneumonia TECHNIQUE: 2 views of the chest were acquired. COMPARISON: [facility], CR, XR CHEST 2VW, 07/30/2015, 18:33. [facility], CR, XR CHEST 2VW, 10/08/2016, 9:36. FINDINGS: Surgical changes and devices: None. Lungs and pleura: No pleural effusions or pneumothorax. Lungs are clear, with mild interstitial prominence involving the lung bases not significant changed and there is mild blunting of the costophrenic angles also unchanged likely pleural scarring.. Mediastinum: Mediastinal contours are normal. Heart size is normal. Bones and chest wall: No suspicious bony abnormalities. Soft tissues appear unremarkable. IMPRESSION: No definite acute cardiopulmonary process. Dictated by: Chas Avila RRA Interpreted: Dayne Haq MD on 03/23/2017 at 14 :01 Approved by: Dayne Haq M.D. on 03/23/2017 at 16:36 PROCEDURE: CT ORBITS WITH CONTRAST ([id number]) INDICATIONS: R orbital cellulitis vs preseptal cellulitis TECHNIQUE: After the administration of intravenous contrast, 3.0 mm axial images acquired through the orbits, with coronal reformatting. For radiation dose reduction, the following was used: automated exposure control. COMPARISON: [facility], CT, CT SHOULDER LT W CON, 07/16/2016, 0:24. FINDINGS: Image quality: Excellent. Orbits: Globes are symmetrical. The optic nerves are normal in size and enhancement. No retrobulbar masses or fat abnormalities. The extra-ocular muscles are normal and symmetrical in appearance. Lacrimal glands are normal. Optic chiasm is normal. There is edema and abnormal enhancement in the right periorbital soft tissues greatest medially. No involvement of the intra-or extraconal fat.. Intracranial: Incidentally visualized brain parenchyma is within normal limits. Bones and sinuses: Visualized calvarium and facial bones appear intact. Visualized sinuses and mastoids are clear. IMPRESSION: Right periorbital cellulitis. No CT evidence of orbital cellulitis. Dictated by: Dayne Haq M.D. on 03/23/2017 at 9:58 Approved by: Dayne Haq M.D. on 03/23/2017 at 10:04 Assessment & Plan Patient is a 31-year-old white female former intravenous drug user, who claims she is no longer using heroin and is on Suboxone,. Who "popped a set" on her right eyebrow a few days ago. The "zit" came back and she popped it again. It became more and more swollen. Then when she tried to pick at it with tweezers at not more and more swollen. She states she was started on clindamycin for an abscess on her left arm and thought it would get better. However the right eye swelling continued to get worse and worse she described the pain as a pressure behind her eye which worsened with eye movements. She went to an urgent care and they did incision and drainage of the abscess above her right eye. There were able to obtain some pus and sent it for culture. Her right eye became increasingly swollen and was almost swollen shut. The patient came to the [facility] emergency room where she was evaluated by Dr. Ryan Braswell. Dr. Braswell ordered a CT scan which showed a right periorbital cellulitis with no CT evidence of orbital cellulitis. The patient was given 1 dose of IV clindamycin in the emergency room.The patient was therefore admitted to the hospitalist service for further evaluation and treatment. # Right orbital cellulitis, present at time of admission. Active - Ultram from urgent care I&D of the right eyebrow area grew MSSA - Appreciate Dr. Bill's consultation and time and expertise. - Patient was started on IV Ancef by Dr. Bill. We will continue. I suspect patient will require several days of IV antibiotics before switching over to an oral regimen. - Check sedimentation rate, C-reactive protein and pro calcitonin levels. - Follow serial CBCs and chemistry panels # Type one diabetes mellitus, present remission. Active - We will continue medications the patient is on at home. - We will start sliding scale insulin coverage. - We will check blood sugars before meals and at bedtime. - We will check a hemoglobin A1c. - We will order diabetic diet. # Hepatitis C genotype 1A, presence of admission. Active with no previous treatment. - Patient to follow-up for outpatient treatment. # Bipolar 2 disorder, presence of admission. Active - Continue Lamictal and trazodone as at home. - Continue close observation. 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 # History of Bilateral PEs likely due to septic emboli from right-sided endocarditis in 2008 patient required a chest tube at that time. - We will implement DVT prophylaxis # History of recurrent MRSA infections - Implement contact precautions # History of Asthma - Patient stable at present time Disposition: The patient will be here more than 2 minutes for the evaluation and treatment of the above medical problems, therefore the patient was admitted as an inpatient. Pain Evaluation: Adequate Pain Control GI Prophylaxis: Not indicated VTE Prophylaxis: Sub-Q Enoxaparin Resuscitation Status: CPR: Attempt Resuscitation Dennis Palmer MD Mar 23, 2017 21:45
[2017-03-24 00:16] VITALS: BP 128/76; PULSE 77; RESP 18; O2SAT 100
[2017-03-24] MEDS: CeFAZolin 2 Gm/50 mL D5W Duplex Bag IV SCH ×3 (00:32→16:49)
[2017-03-24] MEDS: Insulin Human REGular 300 Unit/3 mL Inj SUBQ SCH ×2 (03:18→07:48)
[2017-03-24 05:27] VITALS: BP 104/66; PULSE 77; RESP 16; O2SAT 98
--- NOTE | 2017-03-24 06:22 | NUR ---
NOC PT found to have visitor in her room without knowledge that she was there. Visitor then explained about the no visitor policy and was agreeable to leave, however she voiced her frustration. PT was understanding of policy. PT continues to have pain to R eye that is an 8/10. Taking tylenol and toradol with some relief. PT noted to have an entire package of OReo's at the bedside. Diabetic education implemented, although pt continued to eat them and continued to have blood sugars over 300. Insulin given accordingly. PT keeps a warm compress on eye and swelling has decreased a bit. PT is blind in her R eye at baseline. Blood cultures for this stay are positive for MSSA, not MRSA and last MRSA was 2008. PT no longer on CP. PT agreeable to take suboxone at HS after some reluctance. PT was concerned it would cause early wd since she took a friends morphine. Educated on how suboxone actually works. PT cooperative with care otherwise and pleasant. Up to BR independently. VS WNL. Afebrile.
[2017-03-24 06:49] LABS: BASOPHILS % (AUTO) 0 % (0-3); EOSINOPHILS % (AUTO) 0.4 % (0-5); MONOCYTES % (AUTO) 11.9 % (4-12); Mean Corpuscular Hemoglobin 28.5 pg (27.0-35.0); Mean Corpuscular Volume 85.7 fL (81-100); Platelet Count 224 bil/L (150-400)
[2017-03-24 07:16] LABS: ERYTHROCYTE SEDIMENTATION RATE 7 mm/hr (0-32)
[2017-03-24] MEDS: Buprenorphine 2 mg SL Tablet SL SCH ×2 (08:15→19:59)
[2017-03-24] MEDS ORDERED: Dextrose 10% 250 ML IV ONE (08:45)
[2017-03-24] MEDS ORDERED: Glucose 40% Oral Gel 15 Gm Tube PO PRN (08:45)
--- NOTE | 2017-03-24 08:56 | PCM.PNMED ---
Subjective Date of Service Mar 24, 2017 Subjective Pain and swelling around right eye is decreasing Exam Vital Signs Vital Sign - Last Date Time Temp Pulse Resp B/P Pulse Ox O2 Delivery O2 Flow Rate FiO2 03/24/17 05:27 36.8 77 16 104/66 98 Room Air Intake and Output 03/23/17 03/23/17 03/24/17 Cumulative From/Thru 15:00 23:00 07:00 03/23/17 07:24 - 03/24/17 06:23 Intake Total 1675 ml 1151 ml 2826 ml Balance 1675 ml 1151 ml 2826 ml Intake Oral 1600 ml 1036 ml 2636 ml IV Total 75 ml 115 ml 190 ml # Voids 3 4 7 Exam General: Alert and oriented, no acute distress Face: mod right periorbital swelling, eye is now partly open, minimal tenderness Heart: Regular Lungs: Clear Abdomen: Soft, non-tender Extremities: No pedal edema IVs and Medications Medications Reviewed: Medications were reviewed in detail Lab and Diagnostics Result Diagram: 03/24/1751603/24/17516 Microbiology Blood cultures are pending Right eyebrow I&D culture apparently is growing MSSA X-Rays, CTs and MRIs PROCEDURE: X-RAY CHEST, TWO VIEWS ([id number]) INDICATIONS: Possible Pneumonia TECHNIQUE: 2 views of the chest were acquired. COMPARISON: [facility], CR, XR CHEST 2VW, 07/30/2015, 18:33. [facility], CR, XR CHEST 2VW, 10/08/2016, 9:36. FINDINGS: Surgical changes and devices: None. Lungs and pleura: No pleural effusions or pneumothorax. Lungs are clear, with mild interstitial prominence involving the lung bases not significant changed and there is mild blunting of the costophrenic angles also unchanged likely pleural scarring.. Mediastinum: Mediastinal contours are normal. Heart size is normal. Bones and chest wall: No suspicious bony abnormalities. Soft tissues appear unremarkable. IMPRESSION: No definite acute cardiopulmonary process. Dictated by: Chas PABLO Interpreted: Dayne Haq MD on 03/23/2017 at 14 :01 Approved by: Dayne Haq M.D. on 03/23/2017 at 16:36 PROCEDURE: CT ORBITS WITH CONTRAST ([id number]) INDICATIONS: R orbital cellulitis vs preseptal cellulitis TECHNIQUE: After the administration of intravenous contrast, 3.0 mm axial images acquired through the orbits, with coronal reformatting. For radiation dose reduction, the following was used: automated exposure control. COMPARISON: [facility], CT, CT SHOULDER LT W CON, 07/16/2016, 0:24. FINDINGS: Image quality: Excellent. Orbits: Globes are symmetrical. The optic nerves are normal in size and enhancement. No retrobulbar masses or fat abnormalities. The extra-ocular muscles are normal and symmetrical in appearance. Lacrimal glands are normal. Optic chiasm is normal. There is edema and abnormal enhancement in the right periorbital soft tissues greatest medially. No involvement of the intra-or extraconal fat.. Intracranial: Incidentally visualized brain parenchyma is within normal limits. Bones and sinuses: Visualized calvarium and facial bones appear intact. Visualized sinuses and mastoids are clear. IMPRESSION: Right periorbital cellulitis. No CT evidence of orbital cellulitis. Dictated by: Dayne Haq M.D. on 03/23/2017 at 9:58 Approved by: Dayne Haq M.D. on 03/23/2017 at 10:04 Assessment & Plan Patient is a 31-year-old white female former intravenous drug user, who claims she is no longer using heroin and is on Suboxone,. Who "popped a szit" on her right eyebrow a few days ago. The "zit" came back and she popped it again. It became more and more swollen. Then when she tried to pick at it with tweezers at not more and more swollen. She states she was started on clindamycin for an abscess on her left arm and thought it would get better. However the right eye swelling continued to get worse and worse she described the pain as a pressure behind her eye which worsened with eye movements. She went to an urgent care and they did incision and drainage of the abscess above her right eye. There were able to obtain some pus and sent it for culture. Her right eye became increasingly swollen and was almost swollen shut. The patient came to the [facility] emergency room where she was evaluated by Dr. Ryan Braswell. Dr. Braswell ordered a CT scan which showed a right periorbital cellulitis with no CT evidence of orbital cellulitis. The patient was given 1 dose of IV clindamycin in the emergency room.The patient was therefore admitted to the hospitalist service for further evaluation and treatment. # Right orbital cellulitis, present at time of admission. Active, improving - Ultram from urgent care I&D of the right eyebrow area grew MSSA - Appreciate Dr. Bill's consultation and time and expertise. - Patient was started on IV Ancef by Dr. Bill. When improved can switch over to an oral regimen at discharge. - Labs this am - sedimentation rate 7, C-reactive protein 1.8, and pro calcitonin level 0.12 - WBC 10.4 on admit yesterday to 7.7 this am # Type one diabetes mellitus, present remission. Active - We will continue medications the patient is on at home, hemoglobin A1c 7.9 - Change medium Reg prn to low Lispro due to hypoglycemia (dose Reg at 2300 and 0400), is on Lispro at home - We will check blood sugars before meals and at bedtime. - diabetic diet. # Hepatitis C genotype 1A, presence of admission. Active with no previous treatment. - Patient to follow-up for outpatient treatment. # Bipolar 2 disorder, presence of admission. Active - Continue Lamictal and trazodone as at home. - Continue close observation. 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 # History of Bilateral PEs likely due to septic emboli from right-sided endocarditis in 2008 patient required a chest tube at that time. - We will implement DVT prophylaxis # History of recurrent MRSA infections - Implement contact precautions # History of Asthma - Patient stable at present time Disposition: Await Dr Bill's recommendations but if continues to improve possibly home tomorrow. GI Prophylaxis: Not indicated VTE Prophylaxis: Sub-Q Enoxaparin Resuscitation Status: CPR: Attempt Resuscitation Angie Underwood MD Mar 24, 2017 08:56 Angie Underwood MD Mar 24, 2017 08:56
[2017-03-24] MEDS: Ondansetron 2 mg/mL 2 mL Inj IVPUSH PRN (09:16)
[2017-03-24] MEDS: Insulin GLARgine 100 Unit/mL Syringe SUBQ SCH (09:19)
[2017-03-24] MEDS ORDERED: Dextrose 10% 250 ML IV PRN (09:20)
--- NOTE | 2017-03-24 09:37 | NUR ---
Hypoglycemia 55 this am, resolved with oral intake. MD aware; change in insulin orders. Gave Lantus when blood glucose at 121 per MD verbal order.
[2017-03-24 09:42] VITALS: BP 121/77; PULSE 66; RESP 18; O2SAT 100
[2017-03-24] MEDS: Insulin LISPRO 300 Unit/3 mL Inj SUBQ SCH ×3 (11:36→20:08)
[2017-03-24] MEDS ORDERED: NORG1TAB (11:44)
[2017-03-24] MEDS ORDERED: IBUP800T28 PO (11:44)
[2017-03-24] MEDS ORDERED: ALBU8.5H2 INHALATION (11:44)
--- NOTE | 2017-03-24 13:16 | PROG NOTE ---
[address] [address] PROGRESS NOTE PATIENT: TANNER SYED : 1985 MR#: [id number] ADMIT: 03/23/2017 JOB ID: [id number] INFECTIOUS DISEASE FOLLOWUP: DATE: 03/24/2017 REASON FOR FOLLOWUP: Right MSSA soft-tissue infection with periorbital cellulitis. INTERVAL HISTORY: The patient reports that overnight her right eye pain has decreased considerably. The swelling is also much better and she can now completely open her right eye. She denies any fever or chills. She has no cough or shortness of breath but she does note that she has continued nausea. PHYSICAL EXAMINATION: Reveals an afebrile woman, temp 36.5. Blood pressure 121/77. She is saturating 100% on room air. She looks much more comfortable today. Her right eye is almost wide open. There is some minimal periorbital cellulitis that remains but much better. Lungs are clear. Abdomen benign. LABORATORIES: Include a white count which was 11,000 yesterday, now 7. No left shift noted at all. Creatinine 0.9. Procalcitonin is basically negative x2 and I would not repeat it anymore. LFTs are normal. CRP 1.8. Urinalysis negative. Urine tox screen positive for cannabinoids and opiates. Blood cultures are negative. We do know from an outpatient culture though that this is an MSSA infection. IMAGING: Chest x-ray done yesterday basically clear. IMPRESSION: This patient has methicillin-sensitive Staphylococcus aureus right periorbital cellulitis. There is no evidence for orbital abscess or orbital cellulitis per se. She is currently being treated with cefazolin as it is methicillin-sensitive Staphylococcus aureus. RECOMMENDATIONS: 1. Would go ahead and continue on Ancef for the next perhaps 24 hours or so, but if she continues to show this kind of improvement, I think she could be discharged March 25. 2. For oral antibiotics, I think one could reasonably choose Keflex 500 four times a day as she is obviously tolerating Ancef without any untoward effect. 3. The oral agent we could not choose, of course, would be clindamycin, as we know that this organism is actually resistant. 4. ID will go ahead and sign off at this time as there are no active issues and I suspect she will be able to go home tomorrow.
[2017-03-24 13:26] VITALS: BP 128/75; PULSE 66; RESP 18; O2SAT 98
[2017-03-24] MEDS: lamoTRIgine 100 mg Tablet PO SCH (19:59)
[2017-03-24 20:08] VITALS: BP 126/80; PULSE 66; RESP 18; O2SAT 97
[2017-03-25] MEDS: CeFAZolin 2 Gm/50 mL D5W Duplex Bag IV SCH (00:13)
[2017-03-25] MEDS: CeFAZolin Inj 2 GM in IV Premix 1 EACH IV SCH ×2 (00:16→08:27)
--- NOTE | 2017-03-25 05:44 | NUR ---
Pain Pt reported pain at approx. 9/10 at HS to R eye; Toradol IV administered with instant relief. Pt able to rest throughout shift. Requested additional dose this AM at approx. 0500 for 9/10 pain, reported instant relief upon reassessment. VSS, no telemetry. Edema to R face is [id number].
[2017-03-25 06:36] VITALS: BP 110/74; PULSE 77; RESP 16; O2SAT 99
--- NOTE | 2017-03-25 07:09 | PCM.DIMED ---
Discharge Instructions Date of Service Mar 25, 2017 Dates of Hospitalization Mar 23, 2017 at 11:30 Discharge Diagnosis Discharge Diagnosis Right rc-orbital cellulitis Diet Discharge Diet: No restrictions Activity Discharge Activity: No restrictions Patient Instructions Follow-up with PCP in: 1 week Angie Underwood MD Mar 25, 2017 07:09
[2017-03-25] MEDS ORDERED: CEPH500C PO (07:12)
--- NOTE | 2017-03-25 07:17 | PCM.DC.MED ---
Discharge Summary Date of Service Mar 25, 2017 Dates of Hospitalization Date of Hospital Admission Mar 23, 2017 at 11:30 Date of Discharge: Mar 25, 2017 Providers: Admitting Physician: Dennis Palmer MD Primary Care Physician: Chiara Powell Attending Physician: Dennis Palmer MD Diagnosis at Time of Discharge Diagnosis at Time of Discharge Right rc-orbital cellulitis Consultations Dr Bill, infectious disease Procedures XRay, CTs & MRIs PROCEDURE: X-RAY CHEST, TWO VIEWS ([id number]) INDICATIONS: Possible Pneumonia TECHNIQUE: 2 views of the chest were acquired. COMPARISON: [facility], CR, XR CHEST 2VW, 07/30/2015, 18:33. [facility], CR, XR CHEST 2VW, 10/08/2016, 9:36. FINDINGS: Surgical changes and devices: None. Lungs and pleura: No pleural effusions or pneumothorax. Lungs are clear, with mild interstitial prominence involving the lung bases not significant changed and there is mild blunting of the costophrenic angles also unchanged likely pleural scarring.. Mediastinum: Mediastinal contours are normal. Heart size is normal. Bones and chest wall: No suspicious bony abnormalities. Soft tissues appear unremarkable. IMPRESSION: No definite acute cardiopulmonary process. Dictated by: Chas Avila RR Interpreted: Dayne Haq MD on 03/23/2017 at 14 :01 Approved by: Dayne Haq M.D. on 03/23/2017 at 16:36 PROCEDURE: CT ORBITS WITH CONTRAST ([id number]) INDICATIONS: R orbital cellulitis vs preseptal cellulitis TECHNIQUE: After the administration of intravenous contrast, 3.0 mm axial images acquired through the orbits, with coronal reformatting. For radiation dose reduction, the following was used: automated exposure control. COMPARISON: [facility], CT, CT SHOULDER LT W CON, 07/16/2016, 0:24. FINDINGS: Image quality: Excellent. Orbits: Globes are symmetrical. The optic nerves are normal in size and enhancement. No retrobulbar masses or fat abnormalities. The extra-ocular muscles are normal and symmetrical in appearance. Lacrimal glands are normal. Optic chiasm is normal. There is edema and abnormal enhancement in the right periorbital soft tissues greatest medially. No involvement of the intra-or extraconal fat.. Intracranial: Incidentally visualized brain parenchyma is within normal limits. Bones and sinuses: Visualized calvarium and facial bones appear intact. Visualized sinuses and mastoids are clear. IMPRESSION: Right periorbital cellulitis. No CT evidence of orbital cellulitis. Dictated by: Dayne Haq M.D. on 03/23/2017 at 9:58 Approved by: Dayne Haq M.D. on 03/23/2017 at 10:04 Brief History Patient is a 31-year-old white female former intravenous drug user, who claims she is no longer using heroin and is on Suboxone,. Who "popped a set" on her right eyebrow a few days ago. The "zit" came back and she popped it again. It became more and more swollen. Then when she tried to pick at it with tweezers at not more and more swollen. She states she was started on clindamycin for an abscess on her left arm and thought it would get better. However the right eye swelling continued to get worse and worse she described the pain as a pressure behind her eye which worsened with eye movements. She went to an urgent care and they did incision and drainage of the abscess above her right eye. There were able to obtain some pus and sent it for culture. Her right eye became increasingly swollen and was almost swollen shut. The patient came to the [facility] emergency room where she was evaluated by Dr. Ryan Braswell. Dr. Braswell ordered a CT scan which showed a right periorbital cellulitis with no CT evidence of orbital cellulitis. The patient was given 1 dose of IV clindamycin in the emergency room.The patient was therefore admitted to the hospitalist service for further evaluation and treatment. Hospital Course # Right orbital cellulitis, present at time of admission. Active, improving - Ultram from urgent care I&D of the right eyebrow area grew MSSA - Patient was started on IV Ancef by Dr. Bill. Improved quickly, change to Keflex at discharge - Labs March 24 am - sedimentation rate 7, C-reactive protein 1.8, and pro calcitonin level 0.12 - WBC 10.4 on admit to 7.7 next am # Type one diabetes mellitus, present at time of admission. Active - We will continue medications the patient is on at home, hemoglobin A1c 7.9 - Changed medium Reg prn to low Lispro March 24 due to hypoglycemia that am (dose Reg at 2300 and 0400), is on Lispro at home - We will check blood sugars before meals and at bedtime. - diabetic diet. # Hx heroin addiction - on Suboxone - no narcotics given for pain (good relief with IV Toradol, will use Ibuprofen at home) # Hepatitis C genotype 1A, presence of admission. Active with no previous treatment. - Patient to follow-up for outpatient treatment. # Bipolar 2 disorder, presence of admission. Active - Continue Lamictal and trazodone as at home. - Continue close observation. 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 # History of Bilateral PEs likely due to septic emboli from right-sided endocarditis in 2008 patient required a chest tube at that time. - We will implement DVT prophylaxis # History of recurrent MRSA infections - Implement contact precautions # History of Asthma - Patient stable at present time Disposition: Await Dr Bill's recommendations but if continues to improve possibly home tomorrow. Exam Vital Signs (Last) Date Time Temp Pulse Resp B/P Pulse Ox O2 Delivery O2 Flow Rate FiO2 03/25/17 06:36 36.7 77 16 110/74 99 Room Air Exam General: Alert and oriented, no acute distress Head: Minimal right rc-orbital swelling, no erythema when compared to left side Heart: Regular Lungs: Clear Abdomen: Soft, non-tender Extremities: No pedal edema Test 03/23/17 08:20 03/23/17 09:14 03/23/17 11:56 03/24/17 05:17 Hemoglobin A1c 7.9% (4.8-5.6) Hold Escobar Top Tube Received (Received) Hold Urine Received (Received) Urine Opiates Screen Positive Urine Methadone Screen Negative Urine Barbiturates Screen Negative Urine Amphetamines Screen Negative Urine Benzodiazepines Screen Negative Urine Cocaine Metabolite Screen Negative Urine Cannabinoids Screen Positive Urine Color Yellow (YELLOW) Urine Appearance Clear (CLEAR,HAZY) Urine pH 7.5 (5.0-8.0) Urine Specific [place] 1.015 (1.003-1.035) Urine Protein Negativemg/dL (NEG,TRACE) Urine Glucose (UA) Negativemg/dL (NEGATIVE) Urine Ketones Tracemg/dL (NEGATIVE) Urine Occult Blood Negative (NEGATIVE) Urine Nitrite Negative (NEGATIVE) Urine Bilirubin Negative (NEGATIVE) Urine Urobilinogen Normalmg/dL (NORMAL) Urine Leukocyte Esterase Negative (NEGATIVE) Urine RBC 0-2/hpf (0-2) Urine WBC 0-5/hpf (0-5) Urine Epithelial Cells Few/hpf (NONE-MOD) Urine Crystals None seen (NONE SEEN) Urine Bacteria None/hpf (NONE-FEW) Urine Hyaline Casts None/lpf (NONE) Urine Granular Casts None seen (NONE SEEN) Urine Waxy Casts None seen (NONE SEEN) Urine Red Blood Cell Casts None seen (NONE SEEN) Urine White Blood Cell Casts None seen (NONE SEEN) Urine Mucus None seen (None Seen) Urine Trichomonas None seen (NONE SEEN) Urine Yeast None (NONE SEEN) Urinalysis Comment None Urine Culture Reflexed Not indicated White Blood Count 7.7th/mm3 (3.8-10.1) Red Blood Count 4.67mil/mm3 (3.90-5.20) Hemoglobin 13.3g/dL (12.0-15.6) Hematocrit 40.0% (35.0-46.0) Mean Corpuscular Volume 85.7fL (81-100) Mean Corpuscular Hemoglobin 28.5pg (27.0-35.0) Mean Corpuscular Hemoglobin Concent 33.3% (32.0-37.0) Red Cell Distribution Width 13.8% (12.3-15.4) Platelet Count 224bil/L (150-400) Neutrophils (%) (Auto) 58.0% (40-74) Lymphocytes (%) (Auto) 29.2% (14-46) Monocytes (%) (Auto) 11.9% (4-12) Eosinophils (%) (Auto) 0.4% (0-5) Basophils (%) (Auto) 0% (0-3) Erythrocyte Sedimentation Rate 7mm/hr (0-32) Sodium Level 142mEq/L (134-144) Potassium Level 3.9mEq/L (3.5-5.2) Chloride Level 103mEq/L (97-108) Carbon Dioxide Level 25mmol/L (18-29) Blood Urea Nitrogen 25mg/dL (6-20) Creatinine 0.90mg/dL (0.57-1.00) Estimat Glomerular Filtration Rate 104mL/min (>59) Glucose Level 92mg/dL (60-99) Calcium Level 9.7mg/dL (8.5-10.1) Magnesium Level 2.0mg/dL (1.6-2.6) Total Bilirubin 0.2mg/dL (0.0-1.2) Aspartate Amino Transf (AST/SGOT) 43U/L (0-50) Alanine Aminotransferase (ALT/SGPT) 50U/L (0-32) Alkaline Phosphatase 95U/L (25-150) C-Reactive Protein 1.8mg/dL (0.0-0.5) Total Protein 7.1g/dL (6.4-8.4) Albumin 3.5g/dL (3.4-5.0) Procalcitonin 0.12ng/mL (0.00-0.08) Microbiology Results Blood cultures are pending Right eyebrow I&D culture apparently is growing MSSA Discharge Medications Discharge Medications Buprenorphine HCl/Naloxone HCl (Suboxone 8 mg-2 mg Sl Film) 1 Each Film 1 EACH SL BID (Reported) Bupropion (Bupropion) 100 Mg Tablet 300 MG PO MORNING (Reported) Cephalexin (Cephalexin) 500 Mg Capsule 500 MG PO QID Prescribed by: NAVA UNDERWOOD MD Cetirizine HCl (Zyrtec) 10 Mg Capsule 10 MG PO MORNING (Reported) Insulin Glargine (Lantus U100 Insulin Vial) 100 Unit/Ml Vial 30 UNIT SUBQ MORNING (Reported) Insulin Human Lispro (HumaLOG U100 Insulin Vial) 100 Unit/Ml Unit 0 SUBQ TID- INSULIN (Reported) Check blood sugars before meals and at bedtime. Use correction factor only before meals. Blood Sugar Lispro Correction: <151, 0 units; 151-175, 1 unit; 176-200, 2 units; 201-225, 3 units; 226-250, 4 units; 251-275, 5 units; 276-300 , 6 units; 301-325, 7 units; 326-350, 8 units; 351-375, 9 units; 376-400, 10 units; >400, 12 units. Lamotrigine (Lamictal) 200 Mg Tablet 200 MG PO HS (Reported) Topiramate (Topamax) 50 Mg Tablet 150 MG PO HS (Reported) As needed Albuterol HFA (Proair HFA) 8.5 Gm Hfa.aer.ad 1-2 PUFFS INHALATION PRN For Shortness of Breath (Reported) Hydroxyzine Pamoate (HydrOXYzine Pamoate) 50 Mg Capsule 50 MG PO QID PRN PRN For Anxiety (Reported) Ibuprofen (Ibuprofen) 800 Mg Tablet 1 TAB PO PRN For Pain (Reported) Ranitidine (Ranitidine) 150 Mg Capsule 150 MG PO BID PRN PRN For Indigestion ( Reported) Miscellaneous Medications Norgestimate-Ethinyl Estradiol (Uwn-Pa-Raxyts Tablet) 2HQMIQ1 Lo Tablet ( Reported) Dose per day of the month for control. Followup Plan Discharge Diet: No restrictions Discharge Activity: No restrictions Follow-up with PCP in: 1 week Nava Underwood MD Mar 25, 2017 07:17
[2017-03-25] MEDS: Insulin GLARgine 100 Unit/mL Syringe SUBQ SCH (08:24)
[2017-03-25] MEDS: Insulin LISPRO 300 Unit/3 mL Inj SUBQ SCH (08:24)
[2017-03-25] MEDS: Buprenorphine 2 mg SL Tablet SL SCH (08:28)
--- NOTE | 2017-03-25 11:09 | NUR ---
Discharge To home via private vehicle with friend at 11:00. Steady ambulation to door. IV discontinued intact. Pt expresses understanding of all discharge instructions, including followup and medications. Rx given. Pt has demonstrated wound care/warm compresses. All belongings sent with pt.
--- NOTE | 2017-03-25 12:30 | NUR ---
Social Work: Screening/Discharge D: EMR reviewed. Pt is a 31 y/o female admitted for preseptal cellulitis per H&P. Pt's insurance is [facility] [employer]. PCP is MIRA Vences. Pt's NOK is father, Buster Cee, . Per MD in AM multi-disciplinary rounds, pt is medically stable and will discharge today. Pt to discharge home with friend via POV. SW screened pt's EMR and worked with medical team in AM multi-disciplinary rounds to determine pt does not have any SW discharge needs at this time. SW does not anticipate any needs at time of discharge but will continue to follow if needs arise. A: Pt who is independent at baseline P: Pt to discharge home with friend via POV. SW screened pt's EMR and worked with medical team in AM multi-disciplinary rounds to determine pt does not have any SW discharge needs at this time. SW does not anticipate any needs at time of discharge but will continue to follow if needs arise. Rayna Ni MSW
== END 2017-03-25 11:00 | disposition home or self-care (01) | DRG 603 ==
LOC: SED 07:20 → OSC 11:30
PROVIDERS: ADMIT Internal Medicine Infectious Disease; ATTEND Internal Medicine Infectious Disease
DX: L03.213 Periorbital cellulitis (principal); F31.81 Bipolar II disorder; H54.41 Blindness, right eye, normal vision left eye; E10.9 Type 1 diabetes mellitus without complications; B95.61 Methicillin susceptible Staphylococcus aureus infection as the cause of diseases classified elsewhere; Z16.39 Resistance to other specified antimicrobial drug; J45.909 Unspecified asthma, uncomplicated; Z88.0 Allergy status to penicillin; Z86.14 Personal history of Methicillin resistant Staphylococcus aureus infection; Z79.4 Long term (current) use of insulin; Z87.891 Personal history of nicotine dependence; Z86.711 Personal history of pulmonary embolism; Z79.891 Long term (current) use of opiate analgesic; Z79.51 Long term (current) use of inhaled steroids

== ENCOUNTER 2017-05-16 14:25 | Emergency (ER) | payer OTHER ==
[~2017-05-16] VITALS: Ht 165.1 cm; Wt 90.1 kg
[~2017-05-16 14:25] MED LIST changes: +ALBU8.5H2 INHALATION; +BUPR100T15 PO; +CEPH500C PO; +CETI10CA PO; -CIPR750T4 PO; -DIPH25CA6 PO; +IBUP800T28 PO; +LAMO200T PO; +NORG1TAB; +TOPI50TA32 PO
[2017-05-16 14:36] VITALS: BP 132/84; PULSE 115; RESP 15; O2SAT 100
--- NOTE | 2017-05-16 15:19 | ED.REPORT ---
HPI-Rash / Abscess Date of Service May 16, 2017 ED Provider: Edie Roca History of Present Illness: used keflex previously. on suboxone program. concerned about abscess in left upper arm. started about 1 week ago. picking at face, poked with insulin needle nothing came out. Also poked with IM needle from narcan kit, nothing out. patient [place] [facility] [place]. arm started hurting about 1 week ago. She started poking at it about 2 days after symptoms started. Nursing Notes Stated Complaint: INFECTION ON ARM AND FACE Chief Complaint: Skin Rash/Abscess Nursing Notes Reviewed: Yes Allergies: Coded Allergies: Penicillins (Verified Allergy, Severe, HIVES, 05/16/17) Sulfa (Sulfonamide Antibiotics) (Verified Allergy, Severe, Hives, 05/16/17) acetaminophen (Verified Allergy, Mild, 05/16/17) hydrocodone (Verified Allergy, Mild, 05/16/17) oxycodone (Verified Allergy, Mild, 05/16/17) vancomycin (Verified Adverse Reaction, Severe, Red man's syndrome, 05/16/17 ) HAS RECEIVED MANY DOSES IN PAST Scheduled Buprenorphine HCl/Naloxone HCl (Suboxone 8 mg-2 mg Sl Film) 1 Each Film 1 EACH SL BID Bupropion (Bupropion) 100 Mg Tablet 300 MG PO MORNING Cephalexin (Cephalexin) 500 Mg Capsule 500 MG PO QID Cetirizine HCl (Zyrtec) 10 Mg Capsule 10 MG PO MORNING Insulin Glargine (Lantus U100 Insulin Vial) 100 Unit/Ml Vial 30 UNIT SUBQ MORNING Insulin Human Lispro (HumaLOG U100 Insulin Vial) 100 Unit/Ml Unit 0 SUBQ TID- INSULIN Check blood sugars before meals and at bedtime. Use correction factor only before meals. Blood Sugar Lispro Correction: <151, 0 units; 151-175, 1 unit; 176-200, 2 units; 201-225, 3 units; 226-250, 4 units; 251-275, 5 units; 276-300 , 6 units; 301-325, 7 units; 326-350, 8 units; 351-375, 9 units; 376-400, 10 units; >400, 12 units. Lamotrigine (Lamictal) 200 Mg Tablet 200 MG PO HS Topiramate (Topamax) 50 Mg Tablet 150 MG PO HS Scheduled PRN Albuterol HFA (Proair HFA) 8.5 Gm Hfa.aer.ad 1-2 PUFFS INHALATION PRN For Shortness of Breath Hydroxyzine Pamoate (HydrOXYzine Pamoate) 50 Mg Capsule 50 MG PO QID PRN PRN For Anxiety Ibuprofen (Ibuprofen) 800 Mg Tablet 1 TAB PO PRN For Pain Ranitidine (Ranitidine) 150 Mg Capsule 150 MG PO BID PRN PRN For Indigestion Miscellaneous Medications Norgestimate-Ethinyl Estradiol (Vtm-Vq-Lfgkfg Tablet) [id number] Lo Tablet Dose per day of the month for control. General Time Seen by MD: 15:18 Chief Complaint Rash Hx Obtained From: Patient Onset Occurred: 1 week ago Symptom Duration: Since onset Past Medical History Past Medical History Notes: on suboxone with [facility] 05/16/2017 Past Medical History Type one diabetic Hepatitis C Bipolar Endocarditis Bilateral PEs MRSA Reports: Asthma Past Surgical History Knee Chest tube Abscess drainage Left arm Left hip Smoking History Former Smoker Social History She last used heroin 2 weeks ago. 05/16/2017 Alcohol Use: Denies alcohol use Drug Use: In recovery, IV drugs, THC Other Social History: Local resident Occupation , rents a room in [place], work at [employer] 05/16/2017 Ambulatory Status Independent Review of Systems Basic Review of Systems : No dysuria, No frequency Neurologic: NL mental status, No weakness, No numbness Psychiatric: Normal thought content Physical Exam Initial Vital Signs Vital Signs (First) Date Time Temp Pulse Resp B/P Pulse Ox O2 Delivery O2 Flow Rate FiO2 05/16/17 14:36 37.0 115 15 132/84 100 Room Air Initial VS: Reviewed, Vital signs normal Head / Eyes: Atraumatic, Normocephalic, PERRL ENT: Mucous membranes moist, Conjunctiva normal, No scleral icterus Neck: Supple, Non-tender, Full range of motion Respiratory: Breath sounds normal, Clear to auscultation, No respiratory distress Cardiovascular: Regular rate & rhythm, Heart sounds normal, Intact distal pulses Abdomen / GI: Soft, Non-tender, No guarding, No rebound, No distention Back: No CVA tenderness Lymphatic: No lymphadenopathy Extremities: Vascular intact, Neuro intact, No swelling, No tenderness Neurologic: Alert, Oriented, Nonfocal Psychiatric: Mood/affect normal, Behavior normal, Normal thought content General/Constitutional: Awake, Alert, No acute distress, Well appearing, Well developed, Well hydrated, Well nourished, Cooperative, Not toxic appearing Head / Eyes: Atraumatic, Normocephalic, PERRL, EOMI, No nystagmus, No periorbital redness ENT: Atraumatic, Airway patent, Mucous membranes moist, Pharynx NL, No peritonsillar abscess Respiratory / Chest: Atraumatic, Breath sounds NL, Breath sounds = bilat, No respiratory distress left upper arm has scars from previous opening. Area around scar is hard with mild swelling. No erthyma or increase in warmth. area does not feel ready to open. Interpretation & Diagnostics Lab Results Interpretation Result Diagram: 05/16/17 1610 05/16/17 1610 Test 05/16/17 16:10 White Blood Count 14.1th/mm3 (3.8-10.1) Red Blood Count 5.08mil/mm3 (3.90-5.20) Hemoglobin 14.2g/dL (12.0-15.6) Hematocrit 41.3% (35.0-46.0) Mean Corpuscular Volume 81.3fL (81-100) Mean Corpuscular Hemoglobin 28.0pg (27.0-35.0) Mean Corpuscular Hemoglobin Concent 34.4% (32.0-37.0) Red Cell Distribution Width 13.1% (12.3-15.4) Platelet Count 303bil/L (150-400) Neutrophils (%) (Auto) 57.7% (40-74) Lymphocytes (%) (Auto) 29.5% (14-46) Monocytes (%) (Auto) 12.4% (4-12) Eosinophils (%) (Auto) 0.1% (0-5) Basophils (%) (Auto) 0.1% (0-3) Sodium Level 137mEq/L (134-144) Potassium Level 3.7mEq/L (3.5-5.2) Chloride Level 100mEq/L (97-108) Carbon Dioxide Level 23mmol/L (18-29) Blood Urea Nitrogen 14mg/dL (6-20) Creatinine 0.65mg/dL (0.57-1.00) Estimat Glomerular Filtration Rate 151mL/min (>59) Glucose Level 47mg/dL (60-99) Lactic Acid Level 1.8mmol/L (0.4-2.0) Calcium Level 9.5mg/dL (8.5-10.1) Total Bilirubin 0.6mg/dL (0.0-1.2) Aspartate Amino Transf (AST/SGOT) 40U/L (0-50) Alanine Aminotransferase (ALT/SGPT) 46U/L (0-32) Alkaline Phosphatase 83U/L (25-150) Total Protein 8.2g/dL (6.4-8.4) Albumin 4.1g/dL (3.4-5.0) US Soft Tissue/Musculoskeletal ROCEDURE: US EXTREMITY SONOGRAM LIMITED ([id number]) INDICATIONS: ? abscess TECHNIQUE: Real-time scanning was performed of the left arm, with image documentation. COMPARISON: [facility], US, EXTREMITY SONOGRAM [facility], 02/02/2015, 21:44. FINDINGS: Ill-defined, heterogeneous soft tissue mass is present corresponding to the palpable abnormality measuring 8.0 x 2.9 x 7.1 cm roughly 1.3 deep to the skin surface. Doppler assessment demonstrates mild internal flow. IMPRESSION: Soft tissue mass with sonographic appearance suggesting phlegmon. No drainable fluid collection is seen. Dictated by: Chas Avila [facility] Interpreted: Salome Chiu MD on 05/16/2017 at 16:52 Approved by: Salome Chiu MD, PhD on 05/16/2017 at 16:55 Re-Eval/Medical Decision Med Decision/Clinical Course 31 year old female with using injection drugs presents for possible opening of abscess on left upper arm. Patient with mild swelling but no increase in erthyma or increase warmth. Site does not feel ready to open. US shows phelgmon. but no drainable abscess. Patient started on antibiotics and instruced to stop poking arm and picking at face. To return in 3 days for a recheck. Discharge & Departure Impression: Primary Impression: Abscess Disposition: Home Patient Instructions: Abscess (ED) Additional Instructions: Right now the area of concern does not feel like an abscess that is ready to open. It may be from the recent muscling. The Ultrasound does not show anything that is drainable at this time. DO NOT poke at it with your needles. If you feel you must, poke an orange or a chicken leg! Do not pick at your face! Use bactroban to your face 3 times a day for 7 days. Start keflex 500mg 4 times a day for 10 days. Return in 3 days for a recheck. Use ibuprofen 800 mg 3 times a day for discomfort. Referrals: Chiara Powell (PCP) EDSupervising Provider for APC: Ryan Dhaliwal MD copies to: Chiara Powell Sue ARNP May 16, 2017 15:19
[2017-05-16] MEDS ORDERED: Mupirocin 2% 22 Gm Ointment TOPICAL ONE (15:40)
[2017-05-16 16:17] LABS: BASOPHILS % (AUTO) 0.1 % (0-3); EOSINOPHILS % (AUTO) 0.1 % (0-5); MONOCYTES % (AUTO) 12.4 % (4-12); Mean Corpuscular Volume 81.3 fL (81-100); NEUTROPHILS % (AUTO) 57.7 % (40-74); Platelet Count 303 bil/L (150-400)
--- NOTE | 2017-05-16 16:57 | DRSVH ---
PROCEDURE: US EXTREMITY SONOGRAM LIMITED ([id number]) INDICATIONS: ? abscess TECHNIQUE: Real-time scanning was performed of the left arm, with image documentation. COMPARISON: [facility], , EXTREMITY SONOGRAM [facility], 02/02/2015, 21:44. FINDINGS: Ill-defined, heterogeneous soft tissue mass is present corresponding to the palpable abnorm ality measuring 8.0 x 2.9 x 7.1 cm roughly 1.3 deep to the skin surface. Doppler assessment demonst rates mild internal flow. IMPRESSION: Soft tissue mass with sonographic appearance suggesting phlegmon. No drainable fluid col lection is seen. Dictated by: Chas ESCUDEROA Interpreted: Salome Chiu MD on 05/16/2017 at 16:52 Approved by: Salome Chiu MD, PhD on 05/16/2017 at 16:55
[2017-05-16 17:33] VITALS: BP 136/88; PULSE 85; RESP 16; O2SAT 97
== END 2017-05-16 17:34 | disposition home or self-care (01) ==
LOC: SED 14:25
DX: L02.414 Cutaneous abscess of left upper limb (principal); F31.9 Bipolar disorder, unspecified; J45.909 Unspecified asthma, uncomplicated; Z86.14 Personal history of Methicillin resistant Staphylococcus aureus infection; Z87.891 Personal history of nicotine dependence; Z88.0 Allergy status to penicillin; Z88.2 Allergy status to sulfonamides; Z88.5 Allergy status to narcotic agent; Z88.8 Allergy status to other drugs, medicaments and biological substances